=== PATIENT | female | born 1945 | race Caucasian/White ===

== ENCOUNTER → 2017-09-19 08:45 | Outpatient (CLI) | payer MEDICARE, SELFPAY ==
[2017-09-19 10:49] LABS: Basophils % 0.7 % (0.1-2.0); Eosinophils # 0.1 K/mm3 (0.0-0.4); Eosinophils % 1.6 % (0.1-12.0); Hematocrit 43.6 % (37.0-47.0); Hemoglobin 14.6 g/dL (12.2-16.2); Lymphocytes # 1.3 K/mm3 (0.7-4.5); Mean Corpuscular HGB Conc 33.4 g/dL (31.8-35.4); Mean Corpuscular Hemoglobin 29.8 pg (27.0-31.2); Mean Corpuscular Volume 89.2 fl (81-99); Mean Platelet Volume 8.4 fl (7.4-10.4); Monocytes # 0.4 K/mm3 (0.1-1.0); Neutrophils # 3.7 K/mm3 (1.8-7.8); Neutrophils % 66.6 % (37.0-80.0); Platelet Count 197 K/mm3 (142-424); Red Blood Count 4.89 M/mm3 (4.20-5.40); Red Cell Distribution Width 12.2 % (11.5-17.5); White Blood Count 5.6 K/mm3 (4.8-10.8)
[2017-09-19 10:56] LABS: Alanine Aminotransferase 34 U/L (12-78); Albumin/Globulin Ratio 1.3 (1.1-1.8); Alkaline Phosphatase 116 U/L (46-116); Anion Gap 10.4 mEq/L (5-15); Aspartate Amino Transferase 19 U/L (15-37); Bilirubin,Total 0.4 mg/dL (0.2-1.0); Blood Urea Nitrogen 22 mg/dL (7-18); Calcium 8.8 mg/dL (8.5-10.1); Carbon Dioxide 30 mmol/L (21.0-32.0); Chloride 105 mmol/L (98-107); Chol/HDL Ratio 3.8 (1-3.5); Cholesterol 206 mg/dL (140-200); Estimated Glomerular Filt Rate 71 ml/min (>60); Free T4 (Free Thyroxine) 0.87 ng/dl (0.76-1.46); GFR (African American) 86 ML/MIN (>60); Glucose 94 mg/dL (74-106); HDL Cholesterol 54 mg/dL (29-89); LDL Cholesterol 121 mg/dL (0-130); Potassium 4.4 mmoL/L (3.5-5.1); Sodium 141 mmol/L (136-145); Thyroid Stimulating Hormone 2.59 uIU/ml (0.358-3.740); Triglycerides 154 mg/dL (30-200); VLDL Cholesterol 31 mg/dL (0-40)
[2017-09-20 18:02] LABS: Folate >20.0 ng/mL (>3.0); Vitamin B12 729 pg/mL (232-1245)
== END ==
PROVIDERS: PCP Nurse Practitioner; Visit Provider Nurse Practitioner
DX: E03.9 Hypothyroidism, unspecified; I10 Essential (primary) hypertension; E78.5 Hyperlipidemia, unspecified
CPT/HCPCS: 36415; 80053; 80061; 82607; 82652; 82746; 84439; 84443; 85025

== ENCOUNTER → 2018-08-25 13:21 | Outpatient (POV) | payer MEDICARE, SELFPAY | PROVIDERS: Visit Provider Dermatology | DX: Z00.00 Encounter for general adult medical examination without abnormal findings (principal) ==

== ENCOUNTER → 2019-05-17 09:59 | Outpatient (CLI) | payer MEDICARE, SELFPAY ==
--- NOTE | 2019-05-17 10:17 | XR_ITS ---
PROCEDURE: XR HUMERUS RT CLINICAL INDICATION: RT ARM PAIN Pain COMPARISON: No exams were available for comparison FINDINGS: No fracture or dislocation. No lytic or blastic change. There is normal mineralization. There are mild osteoarthritic changes of the glenohumeral joint with mild subacromial stenosis. A lucency is present projecting over the medial aspect of the humeral head and could be either from the humerus or the glenoid possibly related to a subarticular cyst. Other findings:None. IMPRESSION: Osteoarthritic changes of the shoulder with subacromial stenosis with possible subarticular cyst of the humerus or glenoid Dictated by: Ever Thomas MD 05/17/2019 10:39 Electronically signed by Ever Thomas MD in [place] 05/17/2019 10:39
== END ==
PROVIDERS: PCP Nurse Practitioner Family; Visit Provider Nurse Practitioner Family
DX: M79.621 Pain in right upper arm (principal)
CPT/HCPCS: 73060

== ENCOUNTER → 2019-06-01 07:36 | Outpatient (CLI) | payer MEDICARE, SELFPAY ==
--- NOTE | 2019-06-01 07:43 | MR_ITS ---
PROCEDURE: MR SHOULDER RT WO CON CLINICAL INDICATION: BICEPS TENDINOSIS OF RIGHT SHOULDER, PRIMARY OSTEOARTHRITIS Right shoulder and proximal humerus pain with limited range of motion COMPARISON: XR HUMERUS RT from 05/17/2019 TECHNIQUE: Routine multiplanar multi echo sequences are performed without gadolinium enhancement. FINDINGS: There is mild acromioclavicular arthropathy. There is subacromial stenosis with down sloping of the lateral aspect of the a chromium with a subacromial space measuring 5 mm. There is mild thickening of the supraspinatus and infraspinatus and subscapularis tendons with slight increase in T2 signal consistent with tendinopathy/tendinosis. There is a small focal area of increased T2 signal involving the distal aspect of the infraspinatus tendon suggesting a tear which appears to be full-thickness but is small. The bicipital tendon is in place. There is fluid around the bicipital tendon sheath in the bicipital groove consistent with tenosynovitis. No evidence of bicipital tendon tear. Osteoarthritic changes are present at the glenohumeral joint. No obvious labral tear. A small amount fluid is present in the subcoracoid region. IMPRESSION: 1. 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 There appears to be a small full-thickness tear of the distal aspect of the infraspinatus tendon. The tear is not complete and there is no evidence of tendon retraction 3. Shoulder joint effusion with subcoracoid bursitis 4. Tenosynovitis of the bicipital tendon Dictated by: Ever Thomas MD 06/04/2019 06:25 Electronically signed by Ever Thomas MD in [place] 06/04/2019 06:25
== END ==
PROVIDERS: PCP Nurse Practitioner Family; Visit Provider Nurse Practitioner
DX: M67.813 Other specified disorders of tendon, right shoulder (principal); M19.011 Primary osteoarthritis, right shoulder
CPT/HCPCS: 73221

== ENCOUNTER → 2020-01-11 09:49 | Outpatient (CLI) | payer MEDICARE, SELFPAY ==
[2020-01-11 10:53] LABS: Alanine Aminotransferase 23 U/L (12-78); Albumin Level 4.4 g/dl (3.5-5.0); Albumin/Globulin Ratio 1.8 (1.1-1.8); Alkaline Phosphatase 118 U/L (38-126); Anion Gap 12.6 mEq/L (5-15); Aspartate Amino Transferase 34 U/L (14-36); Bilirubin,Total 0.3 mg/dl (0.2-1.3); Blood Urea Nitrogen 23 mg/dl (7-17); Calcium 9.7 mg/dl (8.4-10.2); Carbon Dioxide 31 mmol/L (22.0-30.0); Chloride 100 mmol/L (98-107); Chol/HDL Ratio 3.6 (1-3.5); Cholesterol 216 mg/dl (140-200); Estimated Glomerular Filt Rate 70 ml/min (>60); GFR (African American) 85 ML/MIN (>60); Globulin 2.5 g/dL (1.3-3.2); Glucose 99 mg/dl (74-100); HDL Cholesterol 60 mg/dl (40-60); Potassium 4.6 mmoL/L (3.5-5.1); Sodium 139 mmol/L (136-145); Total Protein,Serum 6.9 g/dl (6.3-8.2); Triglycerides 117 mg/dl (30-150); VLDL Cholesterol 23 mg/dL (0-40)
[2020-01-11 11:04] LABS: Direct LDL Cholesterol 139.01 mg/dL (100-129)
[2020-01-11 11:07] LABS: Free T4 (Free Thyroxine) 0.86 ng/dl (0.78-2.19)
[2020-01-11 11:21] LABS: Thyroid Stimulating Hormone 0.38 uIU/mL (0.465-4.68)
== END ==
PROVIDERS: Visit Provider Nurse Practitioner Family
DX: I10 Essential (primary) hypertension (principal); E78.2 Mixed hyperlipidemia; E03.9 Hypothyroidism, unspecified
CPT/HCPCS: 36415; 80053; 80061; 84439; 84443

== ENCOUNTER → 2020-05-03 09:28 | Outpatient (CLI) | payer MEDICARE, SELFPAY ==
[2020-05-03 10:46] LABS: Chol/HDL Ratio 3.5 (1-3.5); Cholesterol 194 mg/dl (140-200); HDL Cholesterol 55 mg/dl (40-60); Triglycerides 165 mg/dl (30-150); VLDL Cholesterol 33 mg/dL (0-40)
[2020-05-03 10:57] LABS: Direct LDL Cholesterol 112.37 mg/dL (100-129)
[2020-05-03 11:04] LABS: Free T4 (Free Thyroxine) 1.08 ng/dl (0.78-2.19)
[2020-05-03 11:17] LABS: Thyroid Stimulating Hormone 0.51 uIU/mL (0.465-4.68)
[2020-05-04 10:27] LABS: Triiodothyronine (T3) Free 2.6 pg/mL (2.0-4.4)
== END ==
PROVIDERS: PCP Nurse Practitioner Family; Visit Provider Nurse Practitioner Family
DX: E78.2 Mixed hyperlipidemia (principal); R79.89 Other specified abnormal findings of blood chemistry
CPT/HCPCS: 36415; 80061; 84439; 84443; 84481

== ENCOUNTER 2020-06-20 18:03 | Emergency (ER) | payer MEDICARE, SELFPAY ==
[2020-06-20 18:04] VITALS: BP 183/129; PULSE 73; RESP 19; TEMP 36.6; O2SAT 97; BMI 25.6
--- NOTE | 2020-06-20 18:17 | CT_ITS ---
PROCEDURE: CT HEAD/BRAIN WO CON CLINICAL INDICATION: headache, htn Severe headache COMPARISON: No exams were available for comparison TECHNIQUE: Axial images obtained. All CT scans at the facility use one or more dose reduction, viz: automated exposure control, ma/kV adjustment per patient size (including targeted exams where dose is matched to indication, i.e. head), or iterative reconstruction technique. FINDINGS: No midline shift, mass effect, intracranial hemorrhage, hydrocephalus, or extra-axial fluid collection is evident. The calvarium has an unremarkable appearance. No mastoid effusion. No sinus air-fluid level. IMPRESSION: No acute intracranial finding Dictated by: Ever Thomas MD 06/21/2020 06:37 Ever Thomas MD in [place] 06/21/2020 06:37
--- NOTE | 2020-06-20 18:18 | ECG_ITS ---
APPROVED REPORT Exam: Resting ECG HR:65 bpm ECG Measurements Heart Rate 65 AXES OK 138 P 63 QRSd 82 QRS 45 QT 432 T 57 QTc 449 Conclusion Normal sinus rhythm Normal ECG Electronically signed by : Alber Mcintosh, 06/26/2020 07:42:39
[2020-06-20 18:34] VITALS: BP 195/81; PULSE 64; O2SAT 97
--- NOTE | 2020-06-20 18:36 | HMH.EDGENADL ---
ED Disposition Clinical Impression: Hypertensive urgency Disposition: Home, Self-Care Condition on Discharge: Fair Instructions: High Blood Pressure (Hypertension) (Alternative Therapy), DI for High Blood Pressure Additional Instructions: You have been evaluated for headache and high blood pressure. Please take all medications as prescribed. Take Tylenol if you have a headache. Follow-up with your primary care doctor as soon as available. Return to the emergency department if you have any new or worsening symptoms, headache, vision changes, numbness, weakness, tingling in your arms or legs. You were given hydralazine in the emergency department. Referrals: Alber Phillips MD [Primary Care Provider] - Lopez Baltazar MD [Staff Physician] - Time of Disposition: 19:41 - Critical Care Critical Care Time: No Attestation: On 06/20/20, the high probability of a clinically significant, sudden or life threatening deterioration of the following system(s) required my full and direct attention, intervention and personal management. The time I documented below is in addition to time spent performing reported procedures but includes the following listed in this critical care notation. Medical Decision Making - Medical Records Medical records reviewed: Yes: I reviewed the patient's medical records. - Jose Inquiry Pt receiving controlled substance: No Vital Signs: 06/20/20 18:04 06/20/20 18:34 Temperature 97.8 F Temperature Source Oral Pulse Rate [Left Radial] 73 64 Respiratory Rate 19 Blood Pressure [Right Arm] 183/129 H 195/81 H Blood Pressure Mean [Right Arm] 147 119 Blood Pressure Source [Right Arm] Automatic Cuff Automatic Cuff Blood Pressure Position [Right Arm] Sitting Sitting 02 Sat by Pulse Oximetry 97 97 Oxygen Delivery Method Room Air - Lab Data Lab Results 06/20/20 19:00: WBC 6.2, RBC 4.83, Hgb 15.3, Hct 44.9, MCV 92.9, MCH 31.7 H, MCHC 34.1, RDW 13.9, Plt Count 211, MPV 10.4, Neut % (Auto) 63.0, Lymph % (Auto) 25.8, [place] % (Auto) 7.4, Eos % (Auto) 2.8, Baso % (Auto) 1.0, Neut # (Auto) 3.9, Lymph # (Auto) 1.6, [place] # (Auto) 0.5, Eos # (Auto) 0.2, Baso # (Auto) 0.1 06/20/20 19:00: Sodium 140, Potassium 4.2, Chloride 101, Carbon Dioxide 32 H, Anion Gap 11.2, BUN 16, Creatinine 0.90, Estimated Creat Clear 50, Estimated GFR 61, Est GFR ( Amer) 74, Glucose 100, Calcium 9.7 Result diagrams: 06/20/20 19:00 06/20/20 19:00 Orders (Tests/Meds): ED MEDICATIONS Generic Name Dose Route Start Last Admin Trade Name Freq PRN Reason Stop Dose Admin Hydralazine HCl 10 mg 06/20/20 21:00 06/20/20 19:11 Hydralazine 10mg Tablet PO 07/20/20 20:59 10 mg TID NOLA Administration ORDERS Category Date Time Status CT head/brain wo con Stat Cat Scan 06/20/20 18:17 Taken BMP [Basic Metabolic Panel] Stat Lab 06/20/20 19:00 Results Trop I [Troponin I] Stat Lab 06/20/20 19:00 Results Troponin I Q3H Lab 06/20/20 21:30 Ordered Troponin I Q3H Lab 06/21/20 00:30 Ordered UA [Urinalysis and Microscopic] Stat Lab 06/20/20 18:17 Ordered EKG Request [ECG Request by /Carl] Stat Y 06/20/20 18:18 Ordered - CT Data CT Scan: Head Time Received: 18:[address] Reviewed: Yes: I have reviewed the patient's CT results, I have viewed the radiologist's interpretation Preliminary Findings: Normal/NAD Findings Narrative: No acute intracranial abnormality Medical Decision Narrative: In summary this is a 74-year-old female with history of essential hypertension presenting to the emergency department with elevated blood pressure and headache. Patient clinically stable on arrival. Vital signs within normal limits. Obtain CBC, CMP, troponin, urinalysis, EKG to assess for endorgan dysfunction. Headache is not worst of her life or sudden in onset. Will obtain noncontrast head CT to assess for intracranial bleed. Symptoms started just prior to arrival, within the last [address] unremarkabl
--- NOTE | 2020-06-20 18:43 | PC.NURSE ---
Gone to radiology
[2020-06-20 19:04] VITALS: BP 202/85; PULSE 63; RESP 17; O2SAT 95
[2020-06-20 19:11] LABS: Basophils # 0.1 K/mm3 (0-0.2); Eosinophils # 0.2 K/mm3 (0.0-0.4); Eosinophils % 2.8 % (0.1-12.0); Hematocrit 44.9 % (37.0-47.0); Hemoglobin 15.3 g/dL (12.2-16.2); Lymphocytes # 1.6 K/mm3 (0.7-4.5); Lymphocytes % 25.8 % (10-50); Mean Corpuscular HGB Conc 34.1 g/dL (31.8-35.4); Mean Corpuscular Hemoglobin 31.7 pg (27.0-31.2); Mean Corpuscular Volume 92.9 fl (81-99); Mean Platelet Volume 10.4 fl (7.4-10.4); Monocytes # 0.5 K/mm3 (0.1-1.0); Monocytes % 7.4 % (1.7-9.3); Neutrophils # 3.9 K/mm3 (1.8-7.8); Platelet Count 211 K/mm3 (142-424); Red Blood Count 4.83 M/mm3 (4.20-5.40); Red Cell Distribution Width 13.9 % (11.5-17.5); White Blood Count 6.2 K/mm3 (4.8-10.8)
[2020-06-20 19:24] LABS: Anion Gap 11.2 mEq/L (5-15); Blood Urea Nitrogen 16 mg/dl (7-17); Calcium 9.7 mg/dl (8.4-10.2); Carbon Dioxide 32 mmol/L (22.0-30.0); Chloride 101 mmol/L (98-107); Creatinine Clearance Estimated 50 mL/min (50-200); Estimated Glomerular Filt Rate 61 ml/min (>60); GFR (African American) 74 ML/MIN (>60); Glucose 100 mg/dl (74-100); Potassium 4.2 mmoL/L (3.5-5.1); Sodium 140 mmol/L (136-145)
[2020-06-20 19:30] VITALS: BP 209/83; PULSE 56; RESP 17; O2SAT 95
[2020-06-20 19:38] LABS: Troponin I < 0.01 ng/ml (0.00-0.034)
--- NOTE | 2020-06-20 19:49 | PC.NURSE ---
notified of pt HTN. no new orders at this time for medication. stated she spoke with pt about her HTN and that she was more concerned with her systolic number and would be send pt home with a script for PO hydralazine to take for the next 3 days and that pt should follow up with Dr. Baltazar.
[2020-06-20 19:50] VITALS: BP 209/82; PULSE 97; RESP 16; TEMP 36.7; O2SAT 98
[2020-06-20 20:00] VITALS: BP 238/82; PULSE 60; RESP 17; O2SAT 97
--- NOTE | 2020-06-20 20:14 | PC.NURSE ---
Dr. Dasilva was made aware of BP. she was still comfortable to send patient home.
== END 2020-06-20 20:41 | disposition home or self-care (01) ==
PROVIDERS: Emergency Provider Emergency Medicine; PCP Family Medicine
DX: I16.0 Hypertensive urgency (principal); Z79.899 Other long term (current) drug therapy
CPT/HCPCS: 70450; 80048; 84484; 85025; 93005; 99283

== ENCOUNTER → 2020-07-10 10:07 | Outpatient (CLI) | payer MEDICARE, SELFPAY ==
[2020-07-10 12:12] LABS: Chloride 99 mmol/L (98-107); Sodium 140 mmol/L (136-145)
[2020-07-10 12:13] LABS: Potassium 4.6 mmoL/L (3.5-5.1)
[2020-07-10 12:15] LABS: Blood Urea Nitrogen 17 mg/dl (7-17); Estimated Glomerular Filt Rate 70 ml/min (>60); GFR (African American) 85 ML/MIN (>60)
[2020-07-10 12:16] LABS: Anion Gap 14.6 mEq/L (5-15); Carbon Dioxide 31 mmol/L (22.0-30.0); Glucose 100 mg/dl (74-100)
== END ==
PROVIDERS: Visit Provider Internal Medicine Cardiovascular Disease
DX: I10 Essential (primary) hypertension (principal)
CPT/HCPCS: 36415; 80048

== ENCOUNTER → 2020-07-26 12:37 | Outpatient (CLI) | payer MEDICARE, SELFPAY ==
--- NOTE | 2020-07-26 12:43 | CA_ITS ---
APPROVED REPORT EXAM: Comprehensive 2D, Doppler, and color-flow Echocardiogram Abalone Fisherman: Rachelle Pittman RVT Ht: 5 ft 1 in Wt: 142lbs BSA: 1.63 BP: 195/81 mmHg Indications: HTN 2D Dimensions LVOT 1.45 cm (M/F) 1.5-2.5 M-Mode Dimensions RVDd 1.54 cm (0.9-2.6) LA Diam 3.22 cm (1.9-4.0) LVDd 4.95 cm (3.5-5.7) Ao Diam 2.43 cm (2.0-3.7) LVDs 3.27 cm (3.5-5.7) IVSd 0.57 cm (0.6-1.1) PWd 0.57 cm (0.6-1.1) EF (Teich) 61.00% FS 32.70% EDV (Teich) 110.70 mL ESV (Teich) 43.20 mL LV Diastology E Decel Time 217.00 (160-240 msec) E/A Ratio 1.0 MED E' 9.70 (< 7 cm/sec) E'/MED E' Ratio 9.34 (>14) LAT E' 6.80 (<10 cm/sec) E/LAT E' Ratio 13.32 (>14) Aortic Valve AI PHT 1564.00 ms Mitral Valve MV E Max Mukesh. 91.00 (40-130 cm/s) MV A Velocity 87.00 (40-130 cm/s) E/A Ratio 1.04 MV Decel. Time 217.00 (160-240 ms) MV PHT 63.00 ms Pulmonary Valve PV Peak Velocity 77.00 (50-150 cm/s) Tricuspid Valve TR P. Velocity 188.00 cm/s RAP Estimate 10.00 mmHg RVSP 24.10 mmHg Left Ventricle Left atrium is mildly enlarged, left ventricle is normal size, mild concentric left ventricular hypertrophy, visually estimated ejection fraction 55% with no regional wall motion abnormality, grade 1 diastolic dysfunction seen without tissue Doppler evidence of raise left atrial pressure. Right Ventricle Right atrium and right ventricle are normal size and contractility. Aortic Valve Aortic valve is thickened and calcified leaflet chordae display good mobility, there is no aortic stenosis, there is mild aortic insufficiency. Mitral Valve Mitral valve is grossly normal, there is mild mitral regurgitation. Tricuspid Valve Tricuspid valve is grossly normal, there is mild tricuspid regurgitation, tricuspid regurgitation jet velocity is inadequate for calculation of the right ventricular systolic pressure. Pulmonic Valve Pulmonic valve is poorly visualized. Great Vessels Aortic root is normal size. Pericardium No significant pericardial effusion noted. Conclusion 1. Mildly enlarged left atrium, normal left ventricular size, mild concentric left ventricular hypertrophy, visually estimated ejection fraction 55% with no regional wall motion abnormality, grade 1 diastolic dysfunction seen without tissue Doppler evidence of raise left atrial pressure. 2. Mild aortic, mild mitral and tricuspid regurgitation. 3. No significant pericardial effusion noted. Electronically signed by : Emile Gil, 07/26/2020 18:13:20
== END ==
PROVIDERS: PCP Family Medicine; Visit Provider Internal Medicine Cardiovascular Disease
DX: R07.89 Other chest pain (principal)
CPT/HCPCS: 93306

== ENCOUNTER → 2020-09-04 14:41 | Outpatient (CLI) | payer MEDICARE, SELFPAY | PROVIDERS: PCP Nurse Practitioner Family; Visit Provider Internal Medicine Cardiovascular Disease | DX: G47.00 Insomnia, unspecified (principal); G47.33 Obstructive sleep apnea (adult) (pediatric) | CPT/HCPCS: G0399 ==

== ENCOUNTER → 2020-10-16 09:54 | Outpatient (CLI) | payer MEDICARE, SELFPAY ==
[2020-10-16 11:16] LABS: Alanine Aminotransferase 21 U/L (12-78); Albumin Level 4.6 g/dl (3.5-5.0); Alkaline Phosphatase 89 U/L (38-126); Aspartate Amino Transferase 29 U/L (14-36); Bilirubin,Direct 0.1 mg/dl (0.0-0.4); Bilirubin,Indirect 0.6 mg/dL (0.0-0.9); Bilirubin,Total 0.7 mg/dl (0.2-1.3); Bilirubin,Unconjugated 0.6 mg/dL (0.0-1.1); Chol/HDL Ratio 4.2 (1-3.5); Cholesterol 197 mg/dl (140-200); HDL Cholesterol 47 mg/dl (40-60); Triglycerides 255 mg/dl (30-150); VLDL Cholesterol 51 mg/dL (0-40)
[2020-10-16 11:26] LABS: Direct LDL Cholesterol 105.51 mg/dL (100-129)
== END ==
PROVIDERS: Visit Provider Internal Medicine Cardiovascular Disease
DX: I10 Essential (primary) hypertension (principal); E78.2 Mixed hyperlipidemia
CPT/HCPCS: 36415; 80061; 80076

== ENCOUNTER 2021-02-17 11:21 | Emergency (ER) | payer MEDICARE, SELFPAY ==
--- NOTE | 2021-02-17 12:22 | HMH.EDUTC ---
[facility] Dis[place] Clinical Impression: Close exposure to COVID-19 virus Disposition: Home, Self-Care Condition on Discharge: Good Additional Instructions: covid swab was sent to lab, call later today for results. self isolate until test results are known to be negative No sign of a bacterial infection. Likely viral. Viruses can take 7-14 days to run their course. Nasal saline and bulb syringe or nose Emma to remove nasal drainage to help with nasal congestion. Hard to eat, drink, sleep with nasal congestion so important to keep this cleaned out. Monitor temp. Tylenol or Motrin as needed for pain or fever Encourage fluids, water, Gatorade, Powerade, Pedialyte if infant/toddler/child Warm salt water gargles Warm fluids Sore throat lozenges Sleep elevated Humidifier/vaporizer Follow-up immediately for new or worsening symptoms or no noticeable improvement over the next 48-72 hours. Referrals: Jerri Colvin APRN [Primary Care Provider] - Time of Disposition: 12:25 Medical Decision Making - Jose Inquiry Pt receiving controlled substance: No Orders (Tests/Meds): ORDERS Category Date Time Status Covid-19 Nasal PCR ([place]) Routine Lab 02/17/21 12:08 Received [facility] HPI - General Chief complaint: Urgent [facility] Stated complaint: covid test Time Seen by Provider: 02/17/21 12:22 Mode of Arrival: Ambulatory Source of Information: Patient Limitations: No Limitations - History of Present Illness Provider Complaint: 75 yr old female presents for cough,runny nose, nausea and diarreha. has been exposed to covid - Related Data Home Medications Medication Instructions Recorded Confirmed Levothyroxine Sodium 25 mcg PO DAILY 06/20/20 06/20/20 [Levothyroxine 25mcg (0.025mg) Tab] Nebivolol HCl [Bystolic] 10 mg PO DAILY 06/20/20 06/20/20 Prazosin HCl [Minipress] 1 mg PO DAILY 06/20/20 06/20/20 Rosuvastatin Calcium 5 mg PO DAILY 06/20/20 06/20/20 Venlafaxine HCl 75 mg PO DAILY 06/20/20 06/20/20 lisinopriL [Lisinopril 20mg Tab] 20 mg PO DAILY 06/20/20 06/20/20 Previous Rx's Medication Instructions Recorded Hydralazine HCl [Apresoline 10mg 10 mg PO BID 5 Days #10 tab 06/20/20 tablet] Allergies Allergy/AdvReac Type Severity Reaction Status Date / Time No Known Allergies Allergy Verified 06/20/20 18:37 [place] History - Hepatitis A Screen Attestation statement:: This patient has been screened for Hepatitis A risk factors. I have reviewed the patient's past medical history: Yes ROS Obtained: Yes Systems reviewed as appropriate & no additional complaints - Constitutional Constitutional: Reports system reviewed and no additional complaints, except as docu, Denies chills, Reports fatigue - Eyes Eyes: Reports system reviewed and no additional complaints, except as docu, Denies loss of vision - ENT Ears, Nose, Mouth, and Throat: Reports system reviewed and no additional complaints, except as docu, Reports nasal congestion, Reports nasal discharge, Reports sinus pressure, Reports sore throat - Cardiovascular Cardiovascular: Reports system reviewed and no additional complaints, except as docu, Denies chest pain - Respiratory Respiratory: Reports system reviewed and no additional complaints, except as docu, Denies change in phlegm color, Reports cough - Gastrointestinal Gastrointestingal: Reports: system reviewed and no additional complaints, except as docu, diarrhea, nausea - Genitourinary Female Genitourinary: Reports system reviewed and no additional complaints, except as docu - Musculoskeletal Musculoskeletal: Reports system reviewed and no additional complaints, except as docu, Denies joint pain - Integumentary/Breasts Skin/Breast: Reports system reviewed and no additional complaints, except as docu, Denies rash - Neurologic Neurologic: Reports system reviewed and no additional complaints, except as docu, Denies dizziness - Endocrine Endocrine: Reports system reviewed a
[2021-02-17 12:24] VITALS: BP 147/77; PULSE 88; RESP 19; TEMP 37.1; O2SAT 98; BMI 25.1
[2021-02-17 12:34] VITALS: BP 147/77; PULSE 88; RESP 19; TEMP 37.1
--- NOTE | 2021-02-17 16:28 | PC.NURSE ---
Patient contacted with positive covid results. Advised patient to self quarantine for 2 weeks.
== END 2021-02-17 12:35 | disposition home or self-care (01) ==
PROVIDERS: Emergency Provider Nurse Practitioner Family; PCP Nurse Practitioner Family
DX: U07.1 COVID-19 (principal); I10 Essential (primary) hypertension
CPT/HCPCS: G0463; 99202; U0003

== ENCOUNTER → 2021-09-08 11:48 | Outpatient (CLI) | payer MEDICARE, SELFPAY | PROVIDERS: PCP Nurse Practitioner Family | DX: Z98.890 Other specified postprocedural states (principal); Z11.52 Encounter for screening for COVID-19 | CPT/HCPCS: C9803; U0003; U0005 ==

== ENCOUNTER → 2022-07-08 11:02 | Outpatient (CLI) | payer MEDICARE, SELFPAY ==
[2022-07-08 11:35] LABS: MANUAL DIFFERENTIAL MANUAL DIFFERENTIAL (MANUAL DIFF)
[2022-07-08 11:49] LABS: Basophils % 0.7 % (0.1-2.0); Eosinophils # 0.2 K/mm3 (0.0-0.4); Hemoglobin 14.4 g/dL (12.2-16.2); Lymphocytes # 1.3 K/mm3 (0.7-4.5); Lymphocytes % 22.4 % (10-50); Mean Corpuscular HGB Conc 32.7 g/dL (31.8-35.4); Mean Corpuscular Hemoglobin 29.3 pg (27.0-31.2); Mean Corpuscular Volume 89.6 fl (81-99); Mean Platelet Volume 8.7 fl (7.4-10.4); Monocytes # 0.4 K/mm3 (0.1-1.0); Monocytes % 7.1 % (1.7-9.3); Neutrophils # 3.8 K/mm3 (1.8-7.8); Neutrophils % 66.8 % (37.0-80.0); Platelet Count 244 K/mm3 (142-424); Red Blood Count 4.91 M/mm3 (4.20-5.40); Red Cell Distribution Width 12.8 % (11.5-17.5); White Blood Count 5.7 K/mm3 (4.8-10.8)
[2022-07-08 12:35] LABS: Free Thyroxine Index 3.1 ug/dL (5.93-13.13); T4 (Thyroxine) 10.7 ug/dl (5.53-11.0); Triiodothryronine (T3) Uptake 29 % (23.5-40.5)
[2022-07-08 12:40] LABS: Eosinophils % 1 % (0-3); Lymphocytes % 25 % (10-50); Monocytes % 5 % (2-9); Neutrophils % 69 % (42-76); Total Cells Counted 100
[2022-07-08 12:43] LABS: Platelet Estimate Normal; RBC Morphology Normal
[2022-07-08 12:48] LABS: Thyroid Stimulating Hormone 1.27 uIU/mL (0.465-4.68)
[2022-07-08 12:54] LABS: Chloride 102 mmol/L (98-107); Potassium 4.5 mmoL/L (3.5-5.1); Sodium 140 mmol/L (136-145)
[2022-07-08 12:57] LABS: Alanine Aminotransferase 21 U/L (12-78); Albumin Level 4.4 g/dl (3.5-5.0); Albumin/Globulin Ratio 1.8 (1.1-1.8); Alkaline Phosphatase 132 U/L (38-126); Anion Gap 15.5 mEq/L (5-15); Aspartate Amino Transferase 27 U/L (14-36); Bilirubin,Total 0.4 mg/dl (0.2-1.3); Blood Urea Nitrogen 17 mg/dl (7-17); Calcium 9.8 mg/dl (8.4-10.2); Carbon Dioxide 27 mmol/L (22.0-30.0); Chol/HDL Ratio 4.6 (1-3.5); Cholesterol 201 mg/dl (140-200); Estimated Glomerular Filt Rate 70 ml/min (>60); GFR (African American) 85 ML/MIN (>60); Globulin 2.4 g/dL (1.3-3.2); Glucose 83 mg/dl (74-100); HDL Cholesterol 44 mg/dl (40-60); Total Protein,Serum 6.8 g/dl (6.3-8.2); Triglycerides 124 mg/dl (30-150); VLDL Cholesterol 25 mg/dL (0-40)
[2022-07-08 13:08] LABS: Direct LDL Cholesterol 113.11 mg/dL (100-129)
== END ==
PROVIDERS: PCP Nurse Practitioner Family; Visit Provider Nurse Practitioner Family
DX: E03.9 Hypothyroidism, unspecified (principal); E78.2 Mixed hyperlipidemia; I10 Essential (primary) hypertension
CPT/HCPCS: 36415; 80053; 80061; 84436; 84443; 84479; 85007; 85014; 85018; 85048; 85049

== ENCOUNTER 2023-02-08 17:56 | Emergency (ER) | payer OTHER, SELFPAY ==
[2023-02-08 17:56] VITALS: BP 169/73; PULSE 87; RESP 18; TEMP 36.7; O2SAT 95; BMI 25.6
[2023-02-08 18:26] LABS: Microscopic, Urine URINE MICROSCOPIC (MICROSCOPIC)
[2023-02-08 18:27] LABS: Appearance,Urine TURBID (Clear); Blood, Urine 3+ (Negative); Color,Urine AMBER (Yellow); Glucose,Urine (UA) Negative (Negative); Ketones,Urine Negative (Negative); Leukocyte Esterase,Urine TRACE (Negative); Nitrate,Urine POSITIVE (Negative); PH,Urine 6.5 (5.0-8.5); Protein,Urine 3+ (Negative); Specific Gravity, Urine >= 1.030 (1.005-1.030)
--- NOTE | 2023-02-08 18:28 | EXP.UTC ---
Discharge Plan Disposition Patient Disposition: Home, Self-Care Condition: Good Prescriptions Prescriptions: New phenazopyridine [Pyridium] 200 mg tablet 200 mg PO Q8H 2 Days Qty: 6 0RF ciprofloxacin HCl [Cipro] 500 mg tablet 500 mg PO BID 7 Days Qty: 14 0RF No Action venlafaxine 75 MG tablet 75 mg PO DAILY prazosin 1 MG capsule 1 mg PO DAILY lisinopril 20 MG tablet 20 mg PO DAILY levothyroxine 25 MCG tablet 25 mcg PO DAILY rosuvastatin 5 MG tablet 5 mg PO DAILY nebivolol 10 MG tablet 10 mg PO DAILY hydralazine 10 MG tablet 10 mg PO BID 5 Days Qty: 10 0RF Referrals Follow up/Referrals: Jerri Colvni APRN [Primary Care Provider] - See instructions Activity Restrictions/Add. Instructions Additional Instructions/Restrictions: Drink plenty of fluids. Take tylenol or ibuprofen for pain or fever. Take the medications as directed. Follow up with your regular doctor. GO TO THE ER FOR ANY WORSENING SYMPTOMS The pyridium will make your urine turn orange, this is an expected side effect. It will stain your clothes if it comes into contact with them. We will culture the urine. That will tell what bacteria is causing your infection and which antibiotics will treat it best. Sometimes the first antibiotic we prescribe turns out to not work against different bacteria. So, make sure you follow up within 3 days if you are not getting better. Clinical Impressions Clinical Impression: UTI (urinary tract infection) Instructions Patient Instructions: Urine Culture, Phenazopyridine, Ceftriaxone Injection, Ciprofloxacin Discharge ED Provider: Robert Aviles [facility] General Stated complaint: poss uti Mode of Arrival: Ambulatory Source of Information: Patient Limitations: No Limitations Time Seen by Provider: 02/08/23 18:28 Description of Symptoms (Recalled from Triage Doc. by RN): Patient reports possible UTI. States she has pain with urination, blood in urine and frequency. HEENT Symptoms (Recalled from RN notes): No Resp Symptoms (Recalled from RN notes): No Skin Symptoms (Recalled from RN notes): No MS Symptoms (Recalled from RN notes): No Functional Status (Recalled from RN notes): wnl History of Present Illness Provider Complaint: She states that for the past 2 days she has had worsening dysuria, frequency, and urgency. Related Data Home Medications Medication Instructions Recorded Confirmed levothyroxine 25 mcg tablet 25 mcg PO DAILY thyroid 06/20/20 06/20/20 lisinopril 20 mg tablet 20 mg PO DAILY Hypertension 06/20/20 06/20/20 nebivolol 10 mg tablet 10 mg PO DAILY Hypertension 06/20/20 06/20/20 prazosin 1 mg capsule 1 mg PO DAILY Hypertension 06/20/20 06/20/20 rosuvastatin 5 mg tablet 5 mg PO DAILY Cholesterol 06/20/20 06/20/20 venlafaxine 75 mg tablet 75 mg PO DAILY mood 06/20/20 06/20/20 Previous Rx's Medication Instructions Recorded hydralazine 10 mg tablet 10 mg PO BID 5 days #10 tabs 06/20/20 ciprofloxacin HCl 500 mg tablet 500 mg PO BID 7 days #14 tabs 02/08/23 (Cipro) phenazopyridine 200 mg tablet 200 mg PO Q8H 2 days #6 tabs 02/08/23 (Pyridium) Allergies Allergy/AdvReac Type Severity Reaction Status Date / Time No Known Allergies Allergy Verified 06/20/20 18:37 Worker's Comp Is this a Worker's Comp case?: No [facility] Disclaimer: The information contained in this section may have been updated after the patient was seen, as this information can be updated by other users. Social History Smoking Status: Never smoker alcohol intake: never current occupational status: retired Travel in the last 8 weeks: None ROS Obtained: Yes All systems reviewed & no additional complaints except as documented Constitutional Constitutional: Reports system reviewed and no additional complaints, except as documented, Denies chills and Denies fever(s) Eyes Eyes:
[2023-02-08 18:46] LABS: Bilirubin,Urine 1+ (Negative)
[2023-02-08 18:48] VITALS: BP 169/73; PULSE 87; RESP 18; TEMP 36.7; O2SAT 95
[2023-02-08 18:48] LABS: Bacteria,Urine Trace /lpf; RBC,Urine TNTC #/hpf (0-3)
== END 2023-02-08 18:51 | disposition home or self-care (01) ==
PROVIDERS: Emergency Provider Nurse Practitioner Family; PCP Nurse Practitioner Family
DX: N39.0 Urinary tract infection, site not specified (principal)
CPT/HCPCS: 81001; 96372; 99212; 99214; G0463; J0696

== ENCOUNTER 2023-04-28 10:38 | Emergency (ER) | payer OTHER, SELFPAY ==
[2023-04-28] VITALS (8 sets, daily range): BP systolic 116–197; BP diastolic 64–96; PULSE 59–83; RESP 14–18; TEMP 36.7–36.9; O2SAT 95–98; BMI 25.6
--- NOTE | 2023-04-28 10:50 | PC.NURSE ---
DR HARRIS AT BEDSIDE
--- NOTE | 2023-04-28 10:51 | ECG_ITS ---
APPROVED REPORT Exam: Resting ECG HR:75 bpm ECG Measurements Heart Rate 75 AXES HI 142 P 61 QRSd 90 QRS 19 QT 397 T 56 QTc 426 Conclusion SINUS RHYTHM NORMAL ECG UNCONFIRMED REPORT Electronically signed by : Alber Mcintosh MD 04/28/2023 17:05:24
--- NOTE | 2023-04-28 11:01 | XR_ITS ---
FINAL REPORT CLINICAL HISTORY: papitations FINDINGS: A single portable view of the chest was obtained. The heart size and pulmonary vascularity are within normal limits. The mediastinum is within normal limits. No acute pulmonary abnormality is identified. There are postoperative changes in the right thorax. IMPRESSION: No active cardiopulmonary disease. Reviewed, Interpreted and Dictated by Ren Eid III, MD Transcribed by Fallon Nice Authenticated and [facility]
--- NOTE | 2023-04-28 11:09 | HMH.EDGENADL ---
Discharge Plan Disposition Patient Disposition: Home, Self-Care Chief Complaint: Headache Prescriptions Prescriptions: No Action phenazopyridine [Pyridium] 200 mg tablet 200 mg PO Q8H 2 Days Qty: 6 0RF ciprofloxacin HCl [Cipro] 500 mg tablet 500 mg PO BID 7 Days Qty: 14 0RF venlafaxine 75 MG tablet 75 mg PO DAILY prazosin 1 MG capsule 1 mg PO DAILY lisinopril 20 MG tablet 20 mg PO DAILY levothyroxine 25 MCG tablet 25 mcg PO DAILY rosuvastatin 5 MG tablet 5 mg PO DAILY nebivolol 10 MG tablet 10 mg PO DAILY hydralazine 10 MG tablet 10 mg PO BID 5 Days Qty: 10 0RF Referrals Follow up/Referrals: Daysi Bolden APRN [Primary Care Provider] - See instructions Activity Restrictions/Add. Instructions Additional Instructions/Restrictions: Call your family doctor to establish care for this visit to the emergency department and schedule follow-up within 48 hours to ensure improvement. If you have any worsening of your condition or any other concerning signs or symptoms, return to the emergency department or your primary care doctor for further evaluation. Continue taking amlodipine and lisinopril as discussed. If blood pressures continue to be elevated after 1 to 2 weeks of these medications and you recording breakfast, lunch, dinner blood pressures, talk to your doctor about discontinuing amlodipine and starting carvedilol (Coreg) 12.5 mg daily versus 6.25 mg twice daily. Clinical Impressions Clinical Impression: Headache Qualifiers: Headache type: other headache syndrome Qualified Code(s): G44.89 - Other headache syndrome Discharge ED Provider: Francis Cross General Adult HPI General Chief complaint: Headache Stated complaint: High BP Time Seen by Provider: 04/28/23 10:40 Mode of Arrival: Ambulatory Source of Information: Patient Limitations: No Limitations Description of Symptoms (Recalled from ER Triage Doc. by RN): PT REPORTS WAKING WITH ELEVATED BLOOD PRESSURE OVER 200 PT C/O HEADACHE, DIZZINESS AND INCREASED HR. PCP HAS INCREASED LISINOPRIL DOSAGE AND ADDED AMLODIPINE. HAS NOT FILLED NEW RX History of Present Illness HPI narrative: 77-year-old female with history of hypertension presenting with headache and palpitations. Patient states that she has been working with her PCP in order to try to control blood pressure. Currently taking lisinopril 20 and amlodipine 20. Took blood pressure today, over 200 systolic when patient was having headache, feeling flushed, feeling as if my heart was thumping. Has associated left-sided arm heaviness. Denies overt chest pain, nausea or vomiting, diaphoresis, neurologic deficits. Headache is frontal, posterior, not associated with neck stiffness, fevers or chills, or any other concerns. Related Data Home Medications Medication Instructions Recorded Confirmed levothyroxine 25 mcg tablet 25 mcg PO DAILY thyroid 06/20/20 06/20/20 lisinopril 20 mg tablet 20 mg PO DAILY Hypertension 06/20/20 06/20/20 nebivolol 10 mg tablet 10 mg PO DAILY Hypertension 06/20/20 06/20/20 prazosin 1 mg capsule 1 mg PO DAILY Hypertension 06/20/20 06/20/20 rosuvastatin 5 mg tablet 5 mg PO DAILY Cholesterol 06/20/20 06/20/20 venlafaxine 75 mg tablet 75 mg PO DAILY mood 06/20/20 06/20/20 Previous Rx's Medication Instructions Recorded hydralazine 10 mg tablet 10 mg PO BID 5 days #10 tabs 06/20/20 ciprofloxacin HCl 500 mg tablet 500 mg PO BID 7 days #14 tabs 02/08/23 (Cipro) phenazopyridine 200 mg tablet 200 mg PO Q8H 2 days #6 tabs 02/08/23 (Pyridium) Allergies Allergy/AdvReac Type Severity Reaction Status Date / Time No Known Allergies Allergy Verified 06/20/20 18:37 [facility] Disclaimer: The information contained in this section may have been updated after the patient was seen, as this information can be updated by other users. Social History (Updated 02/08/23 @ 18:50 by Robert Aviles APRN) Smoking Status: Never smoker
[2023-04-28 11:15] LABS: Basophils % 0.6 % (0.1-2.0); Eosinophils # 0.1 K/mm3 (0.0-0.4); Eosinophils % 1.6 % (0.1-12.0); Hematocrit 46.9 % (37.0-47.0); Hemoglobin 14.9 g/dL (12.2-16.2); Lymphocytes # 1.4 K/mm3 (0.7-4.5); Lymphocytes % 21.8 % (10-50); Mean Corpuscular HGB Conc 31.9 g/dL (31.8-35.4); Mean Corpuscular Hemoglobin 28.6 pg (27.0-31.2); Mean Corpuscular Volume 89.8 fl (81-99); Mean Platelet Volume 8.6 fl (7.4-10.4); Monocytes # 0.5 K/mm3 (0.1-1.0); Monocytes % 6.9 % (1.7-9.3); Neutrophils # 4.5 K/mm3 (1.8-7.8); Neutrophils % 69.1 % (37.0-80.0); Platelet Count 230 K/mm3 (142-424); Red Blood Count 5.22 M/mm3 (4.20-5.40); Red Cell Distribution Width 13.3 % (11.5-17.5); White Blood Count 6.5 K/mm3 (4.8-10.8)
[2023-04-28 11:18] LABS: Alanine Aminotransferase 30 U/L (12-78); Albumin Level 4.6 g/dl (3.5-5.0); Albumin/Globulin Ratio 1.5 (1.1-1.8); Alkaline Phosphatase 127 U/L (38-126); Anion Gap 12.3 mEq/L (5-15); Aspartate Amino Transferase 37 U/L (14-36); Bilirubin,Total 0.3 mg/dl (0.2-1.3); Blood Urea Nitrogen 18 mg/dl (7-17); Calcium 9.2 mg/dl (8.4-10.2); Carbon Dioxide 29 mmol/L (22.0-30.0); Chloride 104 mmol/L (98-107); Creatinine Clearance Estimated 48 mL/min (50-200); Estimated Glomerular Filt Rate 81 ml/min (>60); GFR (African American) 98 ML/MIN (>60); Globulin 3.1 g/dL (1.3-3.2); Glucose 112 mg/dl (74-100); Potassium 4.3 mmoL/L (3.5-5.1); Sodium 141 mmol/L (136-145); Total Protein,Serum 7.7 g/dl (6.3-8.2)
[2023-04-28 11:36] LABS: Troponin I < 0.01 ng/ml (0.00-0.034)
--- NOTE | 2023-04-28 11:52 | PC.NURSE ---
ROUNDED ON PT, IMPROVEMENT OF HEADACHE. WARM BLANKET PROVIDED. CALL LIGHT WITHIN REACH
--- NOTE | 2023-04-28 12:25 | PC.NURSE ---
DR HARRIS AT BEDSIDE TO UPDATE PT
== END 2023-04-28 12:50 | disposition home or self-care (01) ==
PROVIDERS: Emergency Provider Emergency Medicine; PCP Nurse Practitioner Family
DX: G44.89 Other headache syndrome (principal); R42 Dizziness and giddiness; R00.2 Palpitations
CPT/HCPCS: 71045; 80053; 84484; 85025; 93005; 96374; 99285; J0131

== ENCOUNTER 2024-03-03 14:32 | Outpatient (CLI) | payer OTHER, SELFPAY ==
[2024-03-03 14:44] LABS: Basophils # 0.1 K/mm3 (0-0.2); Basophils % 0.7 % (0.1-2.0); Eosinophils # 0.3 K/mm3 (0.0-0.4); Eosinophils % 4.8 % (0.1-12.0); Hematocrit 41.4 % (37.0-47.0); Hemoglobin 13.9 g/dL (12.2-16.2); Lymphocytes # 1.4 K/mm3 (0.7-4.5); Lymphocytes % 22.9 % (10-50); Mean Corpuscular HGB Conc 33.7 g/dL (31.8-35.4); Mean Corpuscular Hemoglobin 31.4 pg (27.0-31.2); Mean Corpuscular Volume 93.3 fl (81-99); Mean Platelet Volume 9.2 fl (7.4-10.4); Monocytes # 0.6 K/mm3 (0.1-1.0); Neutrophils # 3.9 K/mm3 (1.8-7.8); Neutrophils % 62.6 % (37.0-80.0); Platelet Count 212 K/mm3 (142-424); Red Blood Count 4.44 M/mm3 (4.20-5.40); Red Cell Distribution Width 13.5 % (11.5-17.5); White Blood Count 6.2 K/mm3 (4.8-10.8)
[2024-03-03 15:26] LABS: Alanine Aminotransferase 27 U/L (12-78); Albumin/Globulin Ratio 1.5 (1.1-1.8); Alkaline Phosphatase 127 U/L (38-126); Anion Gap 14.4 mEq/L (5-15); Aspartate Amino Transferase 28 U/L (14-36); Bilirubin,Total 0.5 mg/dl (0.2-1.3); Blood Urea Nitrogen 20 mg/dl (7-17); Calcium 9.7 mg/dl (8.4-10.2); Carbon Dioxide 27 mmol/L (22.0-30.0); Chloride 105 mmol/L (98-107); Chol/HDL Ratio 4.2 (1-3.5); Cholesterol 187 mg/dl (140-200); Estimated Glomerular Filt Rate 81 ml/min (>60); GFR (African American) 98 ML/MIN (>60); Globulin 2.7 g/dL (1.3-3.2); Glucose 99 mg/dl (74-100); HDL Cholesterol 45 mg/dl (40-60); Potassium 4.4 mmoL/L (3.5-5.1); Sodium 142 mmol/L (136-145); Total Protein,Serum 6.7 g/dl (6.3-8.2); Triglycerides 172 mg/dl (30-150); VLDL Cholesterol 34 mg/dL (0-40)
[2024-03-03 15:36] LABS: Direct LDL Cholesterol 106.56 mg/dL (100-129)
[2024-03-03 15:37] LABS: Free T4 (Free Thyroxine) 1.01 ng/dl (0.78-2.19)
[2024-03-03 15:42] LABS: T4 (Thyroxine) 9.7 ug/dl (5.53-11.0)
[2024-03-03 15:55] LABS: Thyroid Stimulating Hormone 2.17 uIU/mL (0.465-4.68)
[2024-03-03 16:15] LABS: Vitamin B12 410 pg/mL (239-931)
[2024-03-03 17:55] LABS: Ferritin 35.8 ng/ml (11.1-264)
[2024-03-05 08:24] LABS: Triiodothyronine (T3) Free 2.9 pg/mL (2.0-4.4)
== END 2024-03-03 23:59 | disposition home or self-care (01) ==
LOC: LAB.DROPOF 14:33
PROVIDERS: PCP Nurse Practitioner Family; Visit Provider Nurse Practitioner Family
DX: E03.9 Hypothyroidism, unspecified (principal); R53.83 Other fatigue; I10 Essential (primary) hypertension
CPT/HCPCS: 80050; 80053; 80061; 82607; 82728; 84436; 84439; 84443; 84481; 85025

== ENCOUNTER 2025-03-29 13:35 | Outpatient (CLI) | payer OTHER, SELFPAY ==
--- OUTSIDE RECORDS SUMMARY | 2016-03-12 10:16 | XMS_ITS | Encounter Summary ---
Author Organization [place] [address] Care Team Providers Care Mail Examiner Name Role Phone Duarte Romo MD, Mahesh Sandoval Primary Care Provid er Encounter Details Date Type Department Care Team (Latest Contact Info) Description 03/12/2016 10:16 AM EDT Hospital Encounter SE Referral Lab 1 [place], [place] [phone] Mahesh Bishop MD [address] [place] [address] Pain in right knee; Pain [...] RATE AUTOMATED (03/12/2016 12:00 PM EDT) Pathologist [facility] Sed Rate 24 0 - 30 mm/hr [facility] Blood specimen (specimen) 03/12/2016 12:00 PM EDT 03/12/2016 3:20 PM EDT us Mahesh Bishop MD HEMATOLOGY ORDERABLES Fi nal Result Performing Organization Address [facility] [place] [address] * CBC WITH AUTO DIFF (03/12/2016 12:00 PM EDT) [facility] WBC 5.5 4.0 - 11.0 x10(3)/mcL [facility] RBC 4.42 3.80 - 5.10 x10(6)/mcL [facility] Hgb 13.6 12.0 - 15.6 gm/dL [facility] Hct 39.2 35.7 - 45.9 % [facility] MCV 88.7 82.5 - 99.8 fL [facility] MCH 30.7 27.0 - 34.3 pg [facility] MCHC 34.6 32.1 - 35.3 gm/dL [facility] RDW 13.1 11.5 - 15.0 % [facility] Platelet 174 144 - 423 x10(3)/mcL [facility] MPV 9.0 6.8 - 10.8 fL [facility] Blood specimen (specimen) 03/12/2016 12:00 PM EDT 03/12/2016 3:20 PM EDT us Mahesh Bishop MD HEMATOLOGY ORDERABLES Fi nal Result Performing Organization Address City/[facility] Co de Phone Number [address] [address] * C-REACTIVE PROTEIN (03/12/2016 12:00 PM EDT) Pathologist [facility] CRP 1.88 <=5.00 mg/L [facility] Blood specimen (specimen) 03/12/2016 12:00 PM EDT 03/12/2016 3:20 PM EDT us Mahesh Bishop MD CHEMISTRY ORDERABLES Fin al Result [facility] 1 [place] [address] documented in this encounter Visit Diagnoses Diagnosis Pain in right knee Pain in joint, lower leg Pain in left knee Pain in joint, lower leg documented in this encounter Care Teams Mail Examiner Relationship Specialty Start Date End Date Mahesh Ramachandran Sr., MD [address] [place] [phone] PCP - General 08/22/11 03/13/20 documented as of this encounter
--- OUTSIDE RECORDS SUMMARY | 2020-03-02 14:26 | XMS_ITS | Encounter Summary ---
Author Organization [place] [address] Care Team Providers Care Methods Time Analyst Name Role Phone Duarte Romo MD, Mahesh Sandoval Primary Care Provid er Encounter Details Date Type Department Care Team (Latest Contact Info) Description 03/02/2020 2:26 PM EDT Hospital Encounter [facility] Referral Lab [address] [place], [place] [id number] Mahesh Bishop MD [address] [place] [address] Pain in left knee; Pain [...] nal Result [facility] [address] [facility] , [place] [address] * CBC WITH DIFF (03/15/2020 10:02 AM [...] 03/15/2020 3:49 PM EDT [facility] Comment:Neutrophils equals s egs plus bands Imm Gran% 0.3 % 03/15/2020 3:49 PM EDT [facility] Comment:Automated count of m etamyelocytes, myelocytes and promyelocytes. Lymph Percent 21.5 % 03/15/2020 3:49 PM EDT [facility] [place] Percent 9.9 % 03/15/2020 3:49 PM EDT [facility] Eos Percent 1.7 % 03/15/2020 3:49 PM EDT [facility] Baso Percent 0.5 % 03/15/2020 3:49 PM EDT [facility] Neut # 3.9 1.6 - 6.1 x10(3)/mcL 03/15/2020 3:49 PM EDT [facility], [facility] Comment:Neutrophils equals s egs plus bands IMMGRAN# 0.0 0.0 - 0.1 x10(3)/mcL 03/15/2020 3:49 PM EDT [facility], [facility] Comment:Automated count of m etamyelocytes, myelocytes and promyelocytes. An absolute IG <0.1 is reported as 0.0. Lymph # 1.3 1.2 - 3.9 x10(3)/mcL 03/15/2020 3:49 PM EDT [facility] Taylor # 0.6 0.3 - 0.9 x10(3)/mcL 03/15/2020 3:49 PM EDT [facility] Eos# 0.1 0.0 - 0.5 x10(3)/mcL 03/15/2020 3:49 PM EDT [facility], [facility] Baso # 0.0 0.0 - 0.1 x10(3)/mcL 03/15/2020 3:49 PM EDT [facility], [facility] Blood Venipuncture / Unknown 03/15/2020 10:02 AM EDT 03/15/2020 10:02 AM EDT us Mahesh Bishop MD HEMATOLOGY ORDERABLES Fi nal Result [facility] 1 [facility] , [address] [place], [place] [id number] * C-REACTIVE PROTEIN (03/15/2020 10:02 AM EDT) CRP 1.76 <=5.00 mg/L 03/15/2020 4:32 PM EDT [facility] Blood Venipuncture / Unknown 03/15/2020 10:02 AM EDT 03/15/2020 10:02 AM EDT us Mahesh Bishop MD CHEMISTRY ORDERABLES Fin al Result [facility] [address] [facility] , [place] [address] documented in this encounter Visit Diagnoses Diagnosis Pain in left knee Pain in joint, lower leg Pain in right knee Pain in joint, lower leg documented in this encounter Care Teams Methods Time Analyst Relationship Specialty Start Date End Date Mahesh Ramachandran Sr., MD [address] [place] [phone] PCP - General 08/22/11 03/13/20 documented as of this encounter
[2025-03-29 18:21] LABS: Hematocrit 42.1 % (37.0-47.0); Hemoglobin 14.1 g/dL (12.2-16.2); Immature Granulocytes % 0.3 %; Mean Corpuscular HGB Conc 33.5 g/dL (31.8-35.4); Mean Corpuscular Hemoglobin 30.2 pg (27.0-31.2); Mean Corpuscular Volume 90.1 fl (81-99); Nucleated Red Blood Cells % 0 %; Platelet Count 264 K/mm3 (142-424); Red Blood Count 4.67 M/mm3 (4.20-5.40); Red Cell Distribution Width-SD 39.8 fL; White Blood Count 7.6 K/mm3 (4.8-10.8)
[2025-03-29 19:26] LABS: Alanine Aminotransferase 23 U/L (12-78); Albumin Level 4.2 g/dl (3.5-5.0); Albumin/Globulin Ratio 1.6 (1.1-1.8); Alkaline Phosphatase 113 U/L (38-126); Anion Gap 13.1 mEq/L (5-15); Aspartate Amino Transferase 27 U/L (14-36); Bilirubin,Total 0.5 mg/dl (0.2-1.3); Blood Urea Nitrogen 22 mg/dl (7-17); Calcium 9.4 mg/dl (8.4-10.2); Carbon Dioxide 30 mmol/L (22.0-30.0); Chloride 99 mmol/L (98-107); Cholesterol 197 mg/dl (140-200); Creatinine,Serum 0.90 mg/dl (0.52-1.04); Estimated Glomerular Filt Rate 61 ml/min (>60); GFR (African American) 73 ML/MIN (>60); Globulin 2.6 g/dL (1.3-3.2); Glucose 60 mg/dl (74-100); HDL Cholesterol 39 mg/dl (40-60); Magnesium 1.8 mg/dl (1.6-2.3); Potassium 4.1 mmoL/L (3.5-5.1); Sodium 138 mmol/L (136-145); Total Protein,Serum 6.8 g/dl (6.3-8.2); Triglycerides 277 mg/dl (30-150)
[2025-03-29 19:56] LABS: Thyroid Stimulating Hormone 2.43 uIU/mL (0.465-4.68)
[2025-03-29 20:15] LABS: Vitamin B12 355 pg/mL (239-931)
--- OUTSIDE RECORDS SUMMARY | 2025-03-31 09:54 | XMS_ITS | Clinical Summary ---
Author Organization [facility] Address [facility] [place] [address] Care Team Providers Care Roster Clerk Name Role Phone Mckayla Larry MD Unavailable [phone] Rachel Barrow MD Unavailable [phone] Rachel Barrow MD Unavailable [phone] Leslee Hunter [facility] Unavailable [phone] Gianna Bullard RN Unavailable Unavaila Rachel Mistry MD Unavailable Nohemyi Kathy Breen MD Unavailable [phone] Zhane Baker Unavailable Stefan John MD Unavailable [phone] Jerri Colvin Primary Care Provider [phone] Source Comments This information has been disclosed to you from confidential records protectedfrom disclosure by state law. You shall make no further disclosure of thisinformation without the specific, written, and informed release of theindividual to whom it pertains, or as otherwise permitted by law. A generalauthorization for the release of medical or other information is not sufficientfor the purposes of therelease of HIV test results or diagnoses. [id number] Allergies Active Allergy Reactions Criticality Noted Date Comments Adhesive Tape-Silicones Hives 05/22/2015 Does okay with paper tape Medications rosuvastatin (CRESTOR) 40 MG tablet Take 1 tablet (40 mg total) by mouth daily. Active hydroCHLOROthiaz timoteo (HYDRODIURIL) 25 MG tablet Take 1 tablet (25 mg total) by mouth daily. Active CALCIUM CARBONATE/VITAMI N D3 (CALCIUM+D ORAL) Take 2 tablets by mouth daily. Active multivitamin capsule Take 1 capsule by mouth daily. Active levothyroxine (SYNTHROID, LEVOTHROID) 25 MCG tablet Take 1 tablet (25 mcg total) by mouth every morning before breakfast. 4 Active traZODone (DESYREL) 100 MG tablet Take 1 tablet (100 mg total) by mouth at bedtime. Active lisinopriL (PRINIVIL) 40 MG tablet Take 1 tablet (40 mg total) by mouth daily. 1 Active omeprazole (PRILOSEC) 20 MG capsule Take 1 capsule (20 mg total) by mouth daily. Active cholecalciferol, vitamin D3, 50 mcg (2,000 unit) Tab Take by mouth. Active acetaminophen (TYLENOL) 500 MG tablet Take 2 tablets (1,000 mg total) by mouth every 8 hours. 60 tablet 04/14/2021 2:43 PM EDT 1 Active senna-docusate (SENNA-S) 8.6-50 mg per tablet Take 1 tablet by mouth every 8 hours as needed for Constipation. 40 tablet 04/14/2021 2:43 PM EDT 1 Active naloxone (NARCAN) 4 mg/actuation [place] Apply 1 spray in one nostril if needed. Call 911. May repeat dose in other nostril if no response in 3 minutes. 2 each 1 Active venlafaxine (EFFEXOR-XR) 75 MG 24 hr capsuleIndicatio ns:Ductal carcinoma in situ (DCIS) of breast, unspecified laterality Take 1 capsule (75 mg total) by mouth daily. 90 capsule 4 1 Active vitamin E 400 UNIT capsule Take 1 capsule (400 Units total) by mouth daily. 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 Hallux valgus, acquired 08/04/2014 Other hammer toe (acquired) 08/04/2014 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 08/04/2014 Personal history of breast cancer 06/02/2012 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 02/14/2012 Cancer Staging:Clinical: Unsigned Pathologic:Stage 0(Tis (DCIS), N0(i-), cM0) - Signed by Rachel Barrow on 11/28/2013 Overview (02/14/2012): S/p lumpectomy, APBI Diffuse cystic mastopathy 12/12/2011 Immunizations Immunization Administration Dates Next Due COVID-19, mRNA, Pfizer monovalent 09/21/2020 Influenza, high-dose, trival ent, preservative-free 06/11/2019,07/08/2018,07/26/2017 TD PRESERVATIVE FREE 09/29/1996 Zoster, live 06/16/2013 Family History Medical History Relation Comments Colon Cancer Brother Cervical Cancer Mother Colon Cancer Mother Uterine Cancer Mother Thyroid nodules Sister Breast Cancer Neg Hx Relation Status Comments Brother Father Mother Sister Social History Tobacco Use Types Packs/Day Years Used Date Smoking Tobacco: Never Smokeless Tobacco: Never Tobacco Cessation:Counseling Given: Not Answered Comments:12/05/2011 passive smoke exposure: yes Alcohol Use Standard Drinks/Week Comments No 0 (1 standard drink = 0.6 oz pur e alcohol) PHQ-2 Answer Date Recorded PHQ-2 Total Score 0 01/25/2021 Comments No Sex and Gender Information Value Date Recorded Sex Assigned at Not on file Legal Sex Female 7:08 PM EST Gender Identity Not on file Sexual Orientation Not on file Last Filed Vital Signs Vital Sign Reading Time Taken Comments Blood Pressure 144/88 04/10/2023 9:51 AM EDT Pulse 75 04/10/2023 9:51 AM EDT Temperature 36.6 C (97.9 F) 03/30/2023 10:04 AM EDT Respiratory Rate 15 04/10/2023 9:51 AM EDT Oxygen Saturation 100% 04/10/2023 9:51 AM EDT Inhaled Oxygen Concentration 100% 04/10/2023 9 :51 AM EDT Weight 63.5 kg (140 lb) 04/10/2023 9:51 AM EDT Height 157.5 cm (5' 2 ) 04/10/2023 9:51 AM EDT Body Mass Index 25.61 04/10/2023 9:51 AM EDT Plan of Treatment Health Maintenance Due Date Last Done Comments ASCVD Assessment 1946 Abnormal Colonoscopy Follow Up 1946 Alcohol Misuse Screening 1964 Colonoscopy 1986 Colorectal Cancer Screening (MyChart) 1986 Cologuard (FIT-DNA) 1991 Stool Testing (gFOBT) 1991 Immunization: Pneumococcal ( 1 of 1 - PCV) 1996 Osteoporosis Screening (DXA Scan) 1996 Immunization: DTaP/Tdap/Td ( 1 - Tdap) 09/30/1996 09/29/1996 Immunization: Zoster (2 of 3) 08/11/2013 06/16/2013 Thyroid Function/TSH (MyChart) 11/23/2014 11/23/2013 Immunization: RSV (Adult) (1 - 1-dose 75+ series) 2021 Depression Screening 01/25/2022 01/25/2021, 04/16/20 18 Renal Function/GFR 03/30/2024 03/30/2023, 0 09/13/2021, 04/19/2021, Additional history exists Immunization: COVID-19 ( season) 2025 05/01/2022, 11/21/2021, 07/04/2021, Additional history exists Immunization: Influenza (MyC espana) (#1) 2025 07/04/2022, 06/11/2019, 07/08/2018, Additional history exists Medical Devices Implanted Type Area [employer] Device Identifier Shelf Expiration Date Model / Serial / Lot Fans Clerk Anastomosis [place] Microvascular Stainless Steel Titanium Od2 Mm Ring Pin Protective Cover Jaw Assembly Sterile Latex Free Disposable - [id number] Implanted:Qty: 1 on 04/10/2021 by Rachel Bolanos MD at [facility] Main Other Left: Breast [employer]IS 08/29/2025 [id number] / / [id number] Fans Clerk Anastomosis [place] Stainless Steel Polyethylene Od2.5 Mm Microvascular Ring Pin Protective Cover Jaw Assembly Sterile Latex Free Disposable - [id number] Implanted:Qty: 1 on 04/10/2021 by Rachel Bolanos MD at [facility] Main Other Left: Breast [employer]IS 07/25/2025 [id number] / / [id number] Fans Clerk Anastomosis [place] Stainless Steel Polyethylene Od2.5 Mm Microvascular Ring Pin Protective Cover Jaw Assembly Sterile Latex Free Disposable - [id number] Implanted:Qty: 1 on 04/10/2021 by Rachel Barrow MD at [facility] Main Other Right: Breast [employer]IS 07/25/2025 [id number] / / [id number] Procedures Procedure Name Priority Date/Time Associated Diagnosis Comments BASIC METABOLIC PANEL Add-On 03/30/2023 10:40 AM EDT TSH Routine 11/23/2013 12:37 PM EDT from Last 3 Months or Most Recently Relevant to Health Maintenance Results * Basic metabolic panel (03/30/2023 10:40 AM EDT) Sodium 137 133 - 146 mmol/L 03/30/2023 11:03 AM EDT [facility] Potassium 4.3 3.5 - 5.3 mmol/L 03/30/2023 11:03 AM EDT [facility] Comment:Hemolysis Present: R esults may be influenced artificially. Recommend recollection as clinically indicated. Chloride 105 98 - 110 mmol/L 03/30/2023 11:03 AM EDT [facility] CO2 23 21 - 33 mmol/L 03/30/2023 11:03 AM EDT [facility] Anion Gap 9 3 - 16 mmol/L 03/30/2023 11:03 AM EDT [facility] BUN 17 7 - 25 mg/dL 03/30/2023 11:03 AM EDT [facility] Creatinine 0.82 0.60 - 1.30 mg/dL 03/30/2023 11:03 AM EDT [facility] Glucose 91 70 - 100 mg/dL 03/30/2023 11:03 AM EDT [facility] Calcium 9.4 8.6 - 10.3 mg/dL 03/30/2023 11:03 AM EDT [facility] Osmolality, Calculated 285 278 - 305 mOsm/kg 03/30/2023 11:03 AM EDT [facility] EGFR 74 03/30/2023 11:03 AM EDT [facility] Comment:As of 2021, the estimated GFR is calculated using the 2020 Chronic Kidney Disease Epidemiology Collaboration (CKD-EPI) equation. In line with the NKF-ASN Task Force Recommendations, this equation does not include a coefficient for race. A single eGFR value is calculated for each patient. The reference interval is >60 mL/min/1.73m2. eGFR values greater than 90 will be reported as >90mL/min/1.73m2. Reference: Mario C, Paul M, Kendra DC, Pastor ND, Lorraine [place], Varsha LA, et al. A Unifying Approach for GFR Estimation: Recommendations of the NKF-ASN Task Force on Reassessing the inclusion of Race in Diagnosing Kidney Disease. Am J Kidney Dis. 2020. Plasma 03/30/2023 10:4 0 AM EDT 03/30/2023 10:52 AM EDT us Sudhir Banks MD LAB BLOOD ORDERABLES Final R esult [facility] [address] [place] [address], [facility] * TSH (Thyroid Stimulating Hormone) (11/23/2013 12:37 PM EDT) TSH 1.28 0.45 - 4.50 mIU/L 11/23/2013 3:08 PM EDT [facility] Serum specimen (specimen) 11/23/2013 12:37 PM EDT 11/23/2013 1:41 PM EDT cMkayla Larry MD LAB BLOOD ORDERABLES Final Res ult [facility] [address] 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 Expl anation Advance Directive - scan 01/03/2012 2:24 PM * Full Code (Latest Code Status on File) Date Activated Date Inactivated Comments 04/10/2021 7:11 PM 04/14/2021 7:09 PM Care Teams Roster Clerk Relationship Specialty Start Date End Date Jerri Colvin [address] [place] [address] [place] [address] PCP - General 09/13/21 Mckayla Larry MD Medical Oncologist Breast Oncology 06/02/12 Rachel Barrow MD Surgical Oncologist Breast Surgery 01/25/21 Rachel Barrow MD Initiating Oncologist Surgical Oncology 01/25/21 Leslee Hunter, JEEP DRIVER [address] [place] [address] Nurse Practitioner Surgical Oncology 01/25/21 Gianna Bullard, RN Registered Nurse Breast Surgery 01/25/21 Rachel Bolanos MD Surgical Oncologist Plastic Surgery 01/31/21 Kathy Payne MD [address] [place] [address] [id number] Surgical Oncologist Breast Oncology 04/20/21 Zhane Baker [address] [place] [phone] Nurse Practitioner [facility] H[facility]ology 04/26/21 Stefan John MD [address] [facility] [place] [id number] Surgical Oncologist Plastic Surgery 08/29/21
--- OUTSIDE RECORDS SUMMARY | 2025-03-31 09:54 | XMS_ITS | Continuity of Care Document ---
Author Organization [facility] Address [address] [place] [address] Phone Care Team Providers Care Marketing Representative Name Role Phone Alber Phillipsw Primary Care Provider Encounters Date Type Department Care Team Description 01/08/2023 6:15 AM EDT - 01/08/2023 11:59 PM EDT Hospital Encounter [facility] [address] [place] [address] Hilda Parish APRN Vermani, Samir D, MD Gastroesophageal reflux disease without esophagitis; Dysphagia, unspecified type; Garcia's esophagus without dysplasia; Polyp of colon, unspecified part of colon, unspecified type; Family hx of colon cancer Discharge Disposition: Home or Self Care 12/31/2022 Orders Only [facility] [address] [place] [address] Vincenzo Elmore MD Screening for colon cancer (Primary Dx) 11/26/2022 9:50 AM EDT Telemedicine [facility] [address] [place] [place] [facility] [address] Hilda Parish APRN Gastroesophageal reflux disease without esophagitis (Primary Dx); Dysphagia, unspecified type; Polyp of colon, unspecified part of colon, unspecified type; Family hx of colon cancer; Garcia's esophagus without dysplasia 11/21/2022 Telephone [facility] [address] [place] [address] Vincenzo Elmore MD Procedure 10/05/2021 10:40 AM EST Office Visit [facility] NPTFTT [address] [place] [address] Iza Ortega MD Screening mammogram, encounter for (Primary Dx); Well woman exam 10/31/2020 Telephone [facility] [address] [phone] Alex Luong MD Results (lab results from [facility]) 10/11/2020 Travel 10/11/2020 10:30 AM EDT Office Visit [facility] [address] [phone] Alex Luong MD Other hyperlipidemia (Primary Dx); Malignant hypertension; Obstructive sleep apnea 09/12/2020 Telephone [facility] [address] [phone] Alex Luong MD Results ([facility] M Sleep Study Report.) 08/14/2020 Travel 08/14/2020 9:45 AM EST - 08/14/2020 10:00 AM EST Surgery [facility] [address] [place] [address] Arie Mcnair MD CATARACT EXTRACTION WITH PHACOEMULSIFICATION AND INTRAOCULAR LENS 08/14/2020 10:11 AM EST Anesthesia Event [facility] [address] [place] [address] Obey Alas MD Stroupe, Howard L IV, MD 08/14/2020 8:38 AM EST - 08/14/2020 11:12 AM EST Hospital Encounter [facility] [address] [place] [address] Arie Mcnair MD Discharge Disposition: Home or Self Care 08/10/2020 9:46 AM EST - 08/10/2020 11:59 PM EST Hospital Encounter [facility] [address] [place] [address] Covid19, [facility] Pre-op testing; Encounter for laboratory testing for COVID-19 virus Discharge Disposition: Home or Self Care 08/01/2020 Telephone [facility] [address] [place] [phone] Alex Luong MD Dizziness 07/31/2020 Travel 07/31/2020 10:45 AM EST - 07/31/2020 11:00 AM EST Surgery [facility] [address] [place] [address] Arie Mcnair MD CATARACT EXTRACTION WITH PHACOEMULSIFICATION AND INTRAOCULAR LENS 07/31/2020 10:26 AM EST Anesthesia Event [facility] [address] [place] [address] Mitch Allan IV, MD Grigorieva, Anastassia, MD 07/31/2020 9:28 AM EST - 07/31/2020 11:23 AM EST Hospital Encounter [facility] [address] [place] [address] Arie Mcnair MD Discharge Disposition: Home or Self Care 07/27/2020 11:39 AM EST - 07/27/2020 11:59 PM EST Hospital Encounter [facility] [address] [place] [address] Covid19, [facility] Pre-op testing; Encounter for laboratory testing for COVID-19 virus Discharge Disposition: Home or Self Care 07/17/2020 Travel 07/11/2020 Travel 07/11/2020 9:47 AM EST - 07/11/2020 11:59 PM EST Hospital Encounter [facility] [address] [facility] [address] [place] [address] Alex Luong MD Malignant hypertension Discharge Disposition: Home or Self Care 07/11/2020 10:45 AM EST Office Visit [facility] [address] [place] [address] Alex Luong MD Malignant hypertension (Primary Dx); Other hyperlipidemia 07/10/2020 Telephone [facility] [address] [phone] Alex Luong MD Results (Lab Work ) 07/07/2020 Telephone [facility] [address] [phone] Alex Luong MD Non-scheduled Referral 07/06/2020 Travel 07/06/2020 3:15 PM EST Office Visit [facility] [address] [phone] Alex Luong MD Malignant hypertension (Primary Dx); Other hyperlipidemia; Chest discomfort; Insomnia, unspecified type 03/15/2020 10:00 AM EDT - 03/15/2020 10:01 AM EDT Hospital Encounter [facility] [address] [address] Mahesh Bishop MD Pain in left knee; Pain in right knee Discharge Disposition: Home or Self Care 03/15/2020 Travel 03/15/2020 10:02 AM EDT - 03/15/2020 11:59 PM EDT Hospital Encounter [facility] [address] [address] Mahesh Bishop MD Left knee pain, unspecified chronicity Discharge Disposition: Home or Self Care 03/15/2020 10:00 AM EDT Hospital Encounter [facility] [address] [place], [place] [address] Mahesh Bishop MD Right knee pain, unspecified chronicity Discharge Disposition: Home or Self Care 03/14/2020 Travel 03/02/2020 2:26 PM EDT Hospital Encounter [facility] Referral Lab [address] [place] [address] Mahesh Bishop MD Pain in left knee; Pain in right knee 01/30/2018 1:00 PM EDT Office Visit [facility] N[facility] [address] [place] [phone] Iza Ortega MD Well woman exam (Primary Dx) 01/23/2017 Telephone [facility] N[facility] [address] [place] [address] Iza Ortega MD Results 01/07/2017 2:45 PM EDT - 01/07/2017 11:59 PM EDT Hospital Encounter [facility] [address] [place] [address] Iza Ortega MD Post-menopausal Discharge Disposition: Home or Self Care 01/07/2017 1:40 PM EDT Office Visit [facility] NPTT [address] [place] [address] Iza Ortega MD Post-menopausal (Primary Dx); Well woman exam with routine gynecological exam 11/04/2016 11:13 PM EDT - 11/05/2016 4:48 AM EDT [facility] [place] [address] Pablo Smith MD Situational anxiety (Primary Dx); Dyspnea, unspecified type Discharge Disposition: Home or Self Care 03/12/2016 11:56 AM EDT - 03/12/2016 11:59 PM EDT Hospital Encounter [facility] [address] [place] [address] Mahesh Bishop MD Pain in right knee; Pain in left knee Discharge Disposition: Home or Self Care 03/12/2016 10:16 AM EDT Hospital Encounter [facility] Referral Lab [address] [place] [address] Mahesh Bishop MD Pain in right knee; Pain in left knee 03/12/2016 11:48 AM EDT - 03/12/2016 11:55 AM EDT [facility] [address] [place] [address] Mahesh Bishop MD Bilateral knee pain Discharge Disposition: Home or Self Care 02/14/2016 Telephone [facility] [address] [phone] Maryjane Duron MD Results 12/28/2015 Telephone [facility] [address] [phone] Maryjane Duron MD Visit Follow Up 12/28/2015 10:34 AM EDT - 12/28/2015 11:59 PM EDT Hospital Encounter [facility] [address] [place] [address] Maryjane Duron MD Pelvic pain in female Discharge Disposition: Home or Self Care 12/27/2015 3:25 PM EDT - 12/27/2015 11:59 PM EDT Hospital Encounter [facility] [place] [address] Ductal carcinoma in situ (DCIS) of left breast; Family history of uterine cancer; Well woman exam with routine gynecological exam; HX: breast cancer Discharge Disposition: Home or Self Care 12/27/2015 8:00 AM EDT Office Visit [facility] [address] [address] Maryjane Duron MD Well woman exam with routine gynecological exam (Primary Dx); Ductal carcinoma in situ (DCIS) of left breast; Pelvic pain in female; Family history of uterine cancer; HX: breast cancer 06/03/2015 2:47 PM EST - 06/03/2015 5:52 PM EST Emergency [facility] [place] [address] May Ray MD Pain in both lower extremities (Primary Dx) Discharge Disposition: Nursing Home Facility 05/29/2015 9:26 AM EST - 06/01/2015 4:04 PM EST Hospital Encounter [facility] [address] [address] Mahesh Bishop MD Discharge Disposition: Nursing Home Facility 05/29/2015 12:00 PM EST - 05/29/2015 3:00 PM EST Surgery [facility] [place] [address] Mahesh Bishop MD ARTHROPLASTY, KNEE, TOTAL, BILATERAL 05/29/2015 12:03 PM EST Anesthesia Event [facility] [place] [address] Mahesh Rosas MD Merkle Serey, Jennifer L, NP 05/22/2015 1:00 PM EDT - 05/22/2015 11:59 PM EDT Hospital Encounter [place] [address] Provider, [facility] Discharge Disposition: Home or Self Care 05/22/2015 11:15 AM EDT - 05/22/2015 12:59 PM EDT Hospital Encounter [facility] PRE-ADMIT TESTING [facility] [place] [address] Anticoagulation adequate (Primary Dx); Preop testing; Generalized OA Discharge Disposition: Home or Self Care 01/09/2015 10:15 AM EDT Office Visit [address] [phone] Jovi Villatoro DPM Congenital metatarsus primus varus (Primary Dx) 11/30/2014 5:15 AM EDT - 11/30/2014 11:59 PM EDT Hospital Encounter [facility] [place] [address] Routine gynecological examination Discharge Disposition: Home or Self Care 11/30/2014 11:00 AM EDT Office Visit [facility] [address] [place] [phone] Maryjane Duron MD Routine gynecological examination (Primary Dx) 10/03/2014 12:30 PM EDT Procedure visit [facility] [address] [place] [phone] Jovi Villatoro DPM Hallux valgus (acquired) (Primary Dx) 09/08/2014 12:00 PM EST Office Visit [address] [place] [phone] Jovi Villatoro DPM Hallux valgus (acquired) (Primary Dx) 08/18/2014 12:00 PM EST Office Visit [facility] [address] [address] Jovi Villatoro DPM Hallux valgus (acquired) (Primary Dx) 08/11/2014 12:00 PM EST Office Visit [address] [address] Jovi Villatoro, DPM Hallux valgus (acquired) (Primary Dx) 08/02/2014 2:30 PM EST Office Visit [facility] Podiatry [address] [place] [phone] Jovi Villatoro DPM Hallux valgus (acquired) (Primary Dx) 07/25/2014 1:00 PM EST - 07/25/2014 2:50 PM EST Surgery [facility] [address] [place] [address] Jovi Villatoro DPM BUNIONECTOMY TIGHT ROPE PROCEDURE 07/25/2014 11:31 AM EST - 07/25/2014 4:40 PM EST Hospital Encounter [facility] [address] [place] [phone] Jovi Villatoro DPM Discharge Disposition: Home or Self Care 07/19/2014 Orders Only [facility] Anesthesia [facility] [place] [address] Mahesh Russell MD Preop testing (Primary Dx) 03/15/2014 4:15 PM EDT Office Visit [facility] [address] [phone] Jovi Villatoro, OSMIN Hallux valgus, acquired, right (Primary Dx); Other hammer toe (acquired); Bunion, right 11/16/2013 4:15 AM EDT - 11/16/2013 12:29 PM EDT Hospital Encounter [facility] [place] [address] Other screening mammogram; Routine gynecological examination Discharge Disposition: Home or Self Care 11/16/2013 12:30 PM EDT - 11/16/2013 11:59 PM EDT Hospital Encounter [facility] [address] [place] [address] Maryjane Duron MD Post-menopausal (Primary Dx) Discharge Disposition: Home or Self Care 11/16/2013 9:40 AM EDT Office Visit [facility] [address] [place] [address] Maryjane Duron MD Other screening mammogram (Primary Dx); Routine gynecological examination 10/20/2012 2:50 AM EDT - 10/20/2012 11:59 PM EDT Hospital Encounter [facility] [place] [address] Routine gynecological examination Discharge Disposition: Home or Self Care 10/20/2012 9:40 AM EDT Office Visit [facility] [address] [place] [address] Maryjane Duron MD Routine gynecological examination (Primary Dx); Breast cancer (HCC) 08/26/2011 8:00 AM EST - 08/26/2011 10:15 AM EST Surgery [facility] [address] [place] [address] Jovi Villatoro DPM BUNIONECTOMY WITH KYLAH OSTEOTOMY 08/26/2011 6:40 AM EST - 08/26/2011 10:56 AM EST Hospital Encounter [facility] SAME DAY [facility] [address] [place] [address] Jovi Villatoro DPM Discharge Disposition: Home or Self Care 08/23/2011 2:28 PM EST - 08/23/2011 11:59 PM EST Hospital Encounter [facility] E[facility] [address] [place] [address] Jovi Villatoro DPM Discharge Disposition: Home or Self Care 08/23/2011 10:53 AM EST - 08/23/2011 2:27 PM EST Hospital Encounter [facility] PRE-ADMIT TESTING [address] [place] [address] Pat, [facility] Discharge Disposition: Home or Self Care 08/31/2007 8:41 PM EST - 08/31/2007 11:59 PM EST Hospital Encounter [facility] Too, Jovi L, MD 09/30/2003 3:16 PM EST - 09/30/2003 11:59 PM EST Hospital Encounter [facility] Jovi Gage MD 05/03/2002 Hospital Encounter [facility] Generic, Historical Provider 04/27/2002 4:33 AM EDT - 04/27/2002 11:59 PM EDT Hospital Encounter [facility] Ash Maddox MD 04/26/2002 12:09 PM EDT - 04/26/2002 11:59 PM EDT Hospital Encounter [facility] Ash Maddox MD 05/01/2001 9:05 AM EDT - 05/01/2001 11:59 PM EDT Hospital Encounter [facility] Ash Maddox MD 04/07/2000 3:48 AM EDT - 04/07/2000 11:59 PM EDT Hospital Encounter [facility] James Wetzel MD 03/14/2000 10:42 AM EDT - 03/14/2000 11:59 PM EDT Hospital Encounter [facility] James Wetzel MD 03/13/2000 11:32 AM EDT - 03/13/2000 11:59 PM EDT Hospital Encounter [facility] James Wetzel MD 01/16/1999 12:26 PM EDT - 01/16/1999 11:59 PM EDT Hospital Encounter [facility] Blaine Kaiser 02/13/1998 3:08 PM EDT - 02/13/1998 11:59 PM EDT Hospital Encounter [facility] Blaine Kaiser 01/17/1998 3:31 PM EDT - 01/17/1998 11:59 PM EDT Hospital Encounter [facility] Jovi Gage MD 01/21/1997 2:23 PM EDT - 01/21/1997 11:59 PM EDT Hospital Encounter [facility] Bl[facility] Kaiser 12/31/1995 3:02 PM EDT - 12/31/1995 11:59 PM EDT Hospital Encounter [facility] EPIC CON UNK [facility] Blaine Kaiser Allergies Active Allergy Reactions Criticality Noted Date Comments Adhesive Tape-Silicones Hives Low 05/22/2015 Can use paper tape Medications omeprazole (PRILOSEC) 20 mg Take 20 mg by mouth every other day. Active LEVOthyroxine (SYNTHROID) 25 mcg Oral Tablet Take 25 mcg by mouth every morning. Active venlafaxine (EFFEXOR) 75 mg Oral Tablet Take 75 mg by mouth every other day. Active traZODone (DESYREL) 100 mg Oral TabletIndicatio ns:takes 50 to 100 mg Take 100 mg by mouth nightly. Indications: takes 50 to 100 mg Active psyllium husk (METAMUCIL ORAL) Take by mouth daily as needed. Active amLODIPine (NORVASC) 10 mg Oral Tablet Take 1 Tab by mouth daily. 90 Tab 3 0 Active Additional Information Patient not taking.Reason: Therapy Completed, Reported on 01/08/2023 hydroCHLOROthia zide (HYDRODIURIL) 25 mg Oral Tablet Take 1 Tab by mouth daily. 90 Tab 3 0 Active nebivoloL (BYSTOLIC) 5 mg Oral Tablet Take 1 Tab by mouth daily. 0 Active Additional Information Patient not taking.Reason: Therapy Completed, Reported on 01/08/2023 lisinopriL (PRINIVIL;ZESTR IL) 20 mg Oral Tablet tablet Take 1 Tab by mouth daily. 30 Tab 11 1 Active rosuvastatin (CRESTOR) 40 mg Oral Tablet Take 1 Tab by mouth daily. 30 Tab 6 1 Active Additional Information Patient not taking.Reason: Therapy Completed, Reported on 01/08/2023 Coenzyme Q10 100 mg Oral Capsule Take 100 mg by mouth daily. 1 Active Cholecalciferol , Vitamin D3, (VITAMIN D3) 50 mcg (2,000 unit) Oral Tablet Take 2,000 Units by mouth daily. 30 Tab 6 1 Active nit6873-eil bcm-BtXy-YLp-as b-C (PLENVU) 140-9-5.2 gram Oral Powder in Packet, SequentialIndic ations:Polyp of colon, unspecified part of colon, unspecified type,Family hx of colon cancer Take 3 Packets by mouth Preprocedure for up to 1 dose. 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/2014 Bunionette 08/04/2014 Other hammer toe (acquired) 08/04/2014 Breast cancer 10/20/2012 Hypoxia Gastroesophageal reflux disease Essential hypertension Family History Medical History Relation Name Comments Arthritis Brother ra Cancer Brother colon Colon Cancer Brother Rheum Arthritis Brother Alzheimer's Disease Father High Blood Pressure Father Anesth Problems Mother slow to wake up Cancer Mother colon, cervical , uterus Colon Cancer Mother Thyroid Disease Mother Thyroid Disease Sister Heart Disease Son 1 valve surgery Migraines Son 1 Relation Name Status Comments Brother Alive Father Mother Sister Alive Son 1 Alive Son 2 Alive Social History Smoking Status as of 03/31/2025 Tobacco Use Types Packs/Day Years Used Date Smoking Tobacco: Never Assessed Sex and Gender Information Value Date Recorded Sex Assigned at Not on file Legal Sex Female 5:13 AM EDT Gender Identity Not on file Sexual Orientation Not on file Last Filed Vital Signs Vital Sign Reading Time Taken Comments Blood Pressure 155/84 01/08/2023 8:19 AM EDT Pulse 63 01/08/2023 8:19 AM EDT Temperature 36.4 C (97.5 F) 01/08/2023 6:48 AM EDT Respiratory Rate 16 01/08/2023 8:19 AM EDT Oxygen Saturation 94% 01/08/2023 8:19 AM EDT Inhaled Oxygen Concentration - - Weight 65.3 kg (144 lb) 01/08/2023 6:48 AM EDT Height 157.5 cm (5' 2 ) 01/08/2023 6:48 AM EDT Body Mass Index 26.34 01/08/2023 6:48 AM EDT Plan of Treatment Not on file Medical Devices Implanted Type Area Doctor Of Naprapathic Medicine Device Identifier Shelf Expiration Date Model / Serial / Lot Screw Compression Headless Thread Long 3.0 X 22mm - [id number] Implanted:Qty: 1 on 08/26/2011 by Jovi Villatoro DPM at [facility] Left: Toe SYNTHES-STRATEC: SYNTHES [facility] 02.226.12 2 / / Implant Bo Vo, Pro-Toe Size Zero Degrees Large - [id number] Implanted:Qty: 1 on 08/26/2011 by Jovi Villatoro DPM at [facility] Left: Toe 01/24/2019 [id number] / / Tightrope Mini Ft - [id number] Implanted:Qty: 1 on 07/25/2014 by Jovi Villatoro DPM at [facility] Right: Foot ARTHREX 04/27/2019 AR-8917DS / / [id number] Kit Disposable Pin Drill Trim-It 2mm X 100mm - [id number] Implanted:Qty: 1 on 07/25/2014 by Jovi Villatoro DPM at [facility] Right: Foot ARTHREX 12/27/2015 AR-4152DS / / [id number] Screw Low Profile Ti 2.4mm X 14mm Cannulated Partial Thread - [id number] Implanted:Qty: 1 on 07/25/2014 by Jovi Villatoro DPM at [facility] Right: Foot ARTHREX AR-8724-1 4PT / / Screw Micro Headless Comp Ft Cannulated Ti 2.5mm X 14mm - [id number] Implanted:Qty: 1 on 07/25/2014 by Jovi Villatoro DPM at [facility] Right: Foot ARTHREX AR-8725-1 4H / / Patella Porous 32mm X 10mm - [id number] Implanted:Qty: 1 on 05/29/2015 by Mahesh Bishop MD at [facility] Left: Knee GREG:GREG 10/28/2019 5878-065- 32 / / [id number] Pros Femoral Porous Cr Nexgen Size C Right - [id number] Implanted:Qty: 1 on 05/29/2015 by Mahesh Bishop MD at [facility] Right: Knee GREG:GREG 05/29/2023 5972-013- / / [id number] Patella Porous 32mm X 10mm - [id number] Implanted:Qty: 1 on 05/29/2015 by Mahesh Bishop MD at [facility] Right: Knee GREG:GREG 11/26/2024 5878-065- 32 / / [id number] Tibia Monoblock Cr Sz-3 10mm - [id number] Implanted:Qty: 1 on 05/29/2015 by Mahesh Bishop MD at [facility] Right: Knee GREG:GREG 09/27/2019 5886-043- / / [id number] Pros Femoral Porous Cr Nexgen Size C Left - [id number] Implanted:Qty: 1 on 05/29/2015 by Mahesh Bishop MD at [facility] Left: Knee GREG:GREG 09/26/2020 5972-013- / / [id number] Tibia Monoblock Cr Sz-3 10mm - [id number] Implanted:Qty: 1 on 05/29/2015 by Mahesh Bishop MD at [facility] Left: Knee GREG:GREG 04/26/2020 5886-043- 10 / / [id number] Lens Intraocular Preloaded 21.5 Diopter - [id number] Implanted:Qty: 1 on 07/31/2020 by Arie Mcnair MD at [facility] Right: Eye [facility] [id number] 03/24/2023 AU00T0.21 5 / [id number] / Lens Intraocular Preloaded 21.5 Diopter - [id number] Implanted:Qty: 1 on 08/14/2020 by Arie Mcnair MD at [facility] Left: Eye [facility] [id number] 05/26/2023 AU00T0.21 5 / [id number] / Explanted Type Area Doctor Of Naprapathic Medicine Device Identifier Shelf Expiration Date Model / Serial / Lot Wire Guide 1.1mm Non Threaded - [id number] Implanted:08/26 by Jovi Villatoro DPM (Quantity not on file) Left: Toe 292.623 / / Procedures Procedure Name Priority Date/Time Associated Diagnosis Comments COLONOSCOPY Routine 01/08/2023 8:07 AM EDT Polyp of colon, unspecified part of colon, unspecified type Family hx of colon cancer ESOPHAGOGASTRODUODENOSCOPY (EGD) Routine 01/08/2023 8:07 AM EDT Gastroesophagea l reflux disease without esophagitis Dysphagia, unspecified type Garcia's esophagus without dysplasia [facility] PATHOLOGY ORDER Routine 01/08/2023 7:43 AM EDT Gastroesophagea l reflux disease without esophagitis Dysphagia, unspecified type Garcia's esophagus without dysplasia Polyp of colon, unspecified part of colon, unspecified type Family hx of colon cancer INTRAOP AIRWAY PLACEMENT Routine 10:15 AM EST CATARACT EXTRACTION WITH PHACOEMULSIFICATION AND INTRAOCULAR LENS 08/14/2020 10:10 AM EST Nuclear sclerotic cataract of left eye Special Needs TOPICAL/MAC, AXIAL 22.92 MM CORONAVIRUS 2018 Routine 08/10/2020 9:44 AM EST Pre-op testing Encounter for laboratory testing for COVID-19 virus SCANNED RADIOLOGY REPORT 2:58 PM EST INTRAOP AIRWAY PLACEMENT Routine 10:32 AM EST CATARACT EXTRACTION WITH PHACOEMULSIFICATION AND INTRAOCULAR LENS 07/31/2020 10:26 AM EST Nuclear sclerotic cataract of right eye Special Needs TOPICAL/MAC, AXIAL 23.13 MM 07/14 CORONAVIRUS 2019 Routine 07/27/2020 11:38 AM EST Pre-op testing Encounter for laboratory testing for COVID-19 virus [facility] US VISCERAL VASCULAR COMPLETE Routine 07/11/2020 10:27 AM EST Malignant hypertension POCT EKG Routine 07/06/2020 3:52 PM EST Malignant hypertension CT LOWER EXTREMITY LEFT WO CONTRAST Routine 03/15/2020 10:45 AM EDT Left knee pain, unspecified chronicity CT LOWER EXTREMITY RIGHT WO CONTRAST Routine 03/15/2020 10:45 AM EDT Right knee pain, unspecified chronicity SEDIMENTATION RATE AUTOMATED Routine 10:02 AM EDT Pain in left knee Pain in right knee CBC WITH DIFF Routine 03/15/2020 10:02 AM EDT Pain in left knee Pain in right knee C-REACTIVE PROTEIN Routine 03/15/2020 10:02 AM EDT Pain in left knee Pain in right knee DX BONE DENSITY AXIAL SKELETON Routine 01/07/2017 3:30 PM EDT Post-menopausal SCANNED EKG 11/15/2016 6:[address] ANGIOGRAM CHEST W CONTRAST STAT 2:40 AM EDT TROPONIN-T STAT 11/05/2016 2:00 AM EDT D-DIMER STAT 11/04/2016 11:57 PM EDT DIFFERENTIAL STAT 11/04/2016 11:50 PM EDT TROPONIN-T STAT 11/04/2016 11:50 PM EDT BASIC METABOLIC PANEL STAT 11/04/2016 11:50 PM EDT CBC WITH DIFF STAT 11/04/2016 11:50 PM EDT XR CHEST PA AND LATERAL UNA 11/05/19 17 10:51 PM EDT EK EKG 12 LEAD STAT 11/04/2016 10:[address] LOWER EXTREMITY RIGHT WO CONTRAST Routine 03/12/2016 12:20 PM EDT Bilateral knee pain CT LOWER EXTREMITY LEFT WO CONTRAST Routine 03/12/2016 12:20 PM EDT Bilateral knee pain DIFFERENTIAL Routine 03/12/2016 12:00 PM EDT SEDIMENTATION RATE AUTOMATED Routine 12:00 PM EDT Pain in right knee Pain in left knee C-REACTIVE PROTEIN Routine 03/12/2016 12:00 PM EDT Pain in right knee Pain in left knee CBC WITH DIFF Routine 03/12/2016 12:00 PM EDT Pain in right knee Pain in left knee US PELVIS AND TRANSVAGINAL NON OB COMPLETE Routine 12/28/2015 11:03 AM EDT Pelvic pain in female 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 CYTOLOGY REPORT Routine 12/27/2015 8:14 AM EDT SCANNED EKG 06/05/2015 11:02 AM EST SCANNED RHYTHM STRIPS 06/05/2015 11:02 AM EST VA US LOWER EXTREMITY VENOUS RIGHT STAT 06/03/2015 3:29 PM EST HEMOGLOBIN AND HEMATOCRIT Early AM 2014 5:27 AM EST BASIC METABOLIC PANEL Routine 06/01/2015 5:27 AM EST NM LUNG SCAN PERFUSION ONLY STAT 10/2014 6:59 PM EST URINE CULTURE (NO STAIN) Routine 015 12:32 PM EST URINALYSIS Routine 05/31/2015 12:32 PM EST TROPONIN-T STAT 05/31/2015 9:57 AM EST BLOOD GAS ARTERIAL Routine 05/31/2015 9:57 AM EST CBC Routine 05/31/2015 9:57 AM EST BASIC METABOLIC PANEL STAT 05/31/2015 9:57 AM EST NT PROBNP STAT 05/31/2015 9:57 AM EST EK EKG 12 LEAD Routine 05/31/2015 9:48 AM EST XR CHEST AP PORTABLE STAT 05/31/2015 9:46 AM EST HEMOGLOBIN AND HEMATOCRIT Early AM 2014 4:46 AM EST HEMOGLOBIN AND HEMATOCRIT Early AM 2014 11:23 AM EST IP CONSULT TO SOCIAL WORK Routine 2014 4:59 PM EST IP CONSULT TO CARE COORDINATION Routine 05/29/2015 4:59 PM EST XR KNEE LEFT AP AND LATERAL UNA 08/2014 4:15 PM EST XR KNEE RIGHT AP AND LATERAL UNA 08/2014 4:14 PM EST IP CONSULT TO HOSPITALIST Routine 2014 2:37 PM EST Procedure Note - Octavia Ramos MD - 05/29/2015 5:11 PM ESTThis note is in progress. Consult Dictated by Eugene Ramos MD, Dictation# [id number] Active Hospital Problems Diagnosis Primary osteoarthritis of both knees Hypothyroidism GERD (gastroesophageal reflux disease) HTN (hypertension) Resolved Hospital Problems Diagnosis No resolved problems to display. S/p BILATERAL TOTAL KNEE REPLACEMENT 05/29/15 Xarelto. Eugene Ramos ARTHROPLASTY, KNEE, TOTAL, BILATERAL 05/29/2015 12:05 PM EST Primary localized osteoarthrosis, lower leg, left Special Needs CPT;17945 REV; DATE CHG FROM 07/31/15 TO 05/29 PER FAX RP 04/13REV PROC CH FR LEFT TO INDIO PER CAR PAT UPDATED SPECIMEN STAT 05/29/2015 10:37 AM EST CROSSMATCH SUMMARY STAT 05/29/2015 10:26 AM EST PREADMISSION TYPE AND SCREEN Pre-Op 3:04 PM EDT Anticoagulation adequate ANTIBODY SCREEN IGG Pre-Op 05/22/2015 1:20 PM EDT ABORH Pre-Op 05/22/2015 1:20 PM EDT DIFFERENTIAL Pre-Op 05/22/2015 1:20 PM EDT BASIC METABOLIC PANEL Routine 05/22/2015 1:20 PM EDT Preop testing Generalized OA PT / INR Pre-Op 05/22/2015 1:20 PM EDT Anticoagulation adequate PARTIAL THROMBOPLASTIN TIME Pre-Op 04/28 1:20 PM EDT Anticoagulation adequate URINALYSIS Pre-Op 05/22/2015 1:20 PM EDT Anticoagulation adequate CBC WITH DIFF Pre-Op 05/22/2015 1:20 PM EDT Anticoagulation adequate STAPHYLOCOCCUS AUREUS SCREEN Pre-Op 1:20 PM EDT Anticoagulation adequate EK EKG 12 LEAD Routine 05/22/2015 12:20 PM EDT Preop testing Generalized OA XR FOOT RIGHT AP LATERAL AND OBLIQUE Routine 01/09/2015 12:46 PM EDT Congenital metatarsus primus varus 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 CYTOLOGY REPORT Routine 11/30/2014 5:15 AM EDT XR FOOT RIGHT AP LATERAL AND OBLIQUE Routine 10/03/2014 1:22 PM EDT Hallux valgus (acquired) XR FOOT RIGHT AP LATERAL AND OBLIQUE Routine 09/08/2014 12:30 PM EST Hallux valgus (acquired) XR FOOT RIGHT AP LATERAL AND OBLIQUE Routine 08/18/2014 12:47 PM EST Hallux valgus (acquired) XR FOOT RIGHT AP LATERAL AND OBLIQUE Routine 08/02/2014 4:33 PM EST Hallux valgus (acquired) SCANNED ANESTHESIA FORMS 015 3:59 PM EST BUNIONECTOMY TAILOR 07/25/2014 2:10 PM EST Hallux valgus (acquired) Other hammer toe (acquired) Congenital metatarsus primus varus Special Needs BETO CPT; 52139/51193/78115 HAMMER TOE REPAIR 07/25/2014 2:10 PM EST Hallux valgus (acquired) Other hammer toe (acquired) Congenital metatarsus primus varus Special Needs [facility]O CPT; 18526/50254/59703 BUNIONECTOMY TIGHT ROPE PROCEDURE 07/25/2014 2:10 PM EST Hallux valgus (acquired) Other hammer toe (acquired) Congenital metatarsus primus varus Special Needs BETO CPT; 08971/84462/36141 XR FOOT RIGHT AP LATERAL AND OBLIQUE Routine 03/15/2014 5:55 PM EDT Hallux valgus, acquired, right DX BONE DENSITY AXIAL SKELETON Routine 11/16/2013 1:15 PM EDT Post-menopausal 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 CYTOLOGY REPORT Routine 11/16/2013 4:15 AM EDT 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 CYTOLOGY REPORT Routine 10/20/2012 12:00 AM EDT SCANNED PRE/POST PROCEDURES 07/2011 9:32 PM EST SCANNED ANESTHESIA FORMS 012 9:32 PM EST SCANNED OR REPORT 08/26/2011 11:41 AM EST PATHOLOGY TISSUE REPORT Routine 08/26/19 12 8:45 AM EST EXCISION MASS FOOT/TOE/GANGLION 08/26/2011 8:06 AM EST HALLUX VALGUS HAMMERTOES LEFT Special Needs PHONE [facility] CPT 53686 [id number] HAMMER TOE REPAIR 08/26/2011 8:06 AM EST HALLUX ELIOTGUS SIA LEFT Special Needs PHONE [facility] [id number] BUNIONECTOMY WITH KYLAH OSTEOTOMY 08/26/2011 8:06 AM EST [place] NNAMDI STOVALL LEFT Special Needs PHONE [facility] [id number] EK EKG 12 LEAD Routine 08/23/2011 11:19 AM EST Results * ESOPHAGOGASTRODUODENOSCOPY (EGD) (01/08/2023 8:07 AM EDT) Anatomical Region Laterality Modality Endoscopy Narrative 01/08/2023 7:46 AM EDT Table formatting from the original result was not included. Findings The esophagus appeared normal. Performed multiple forceps biopsies to rule out Garcia's esophagus in the GE junction Small sliding hiatal hernia (type I hiatal hernia) Mild, localized erythematous mucosa in the antrum; performed cold forceps biopsy to rule out H. pylori Fundic gland polyp in the stomach The duodenum appeared normal. Recommendation Await pathology results Okay to resume all home medications. Continue current acid suppression medication 30 minutes before a meal. 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 Preprocedure A history and physical has been performed, and patient medication allergies have been reviewed. The patient's tolerance of previous anesthesia has been reviewed. The risks and benefits of the procedure and the sedation options and risks were discussed with the patient. All questions were answered and informed consent obtained. ASA 3 - Patient with severe systemic disease Details of the Procedure The patient underwent monitored anesthesia care, which was administered by an anesthesia professional. The patient's blood pressure, heart rate, level of consciousness, oxygen, respirations, ECG and ETCO2 were monitored throughout the procedure. The scope was introduced through the mouth and advanced to the second part of the duodenum. Retroflexion was performed in the cardia. The patient experienced no blood loss. The procedure was not difficult. The patient tolerated the procedure well. There were no apparent adverse events. Patient provided education and educated on specific discharge instructions. Patient educated on medications given during the procedure and new medications for discharge. Patient verbalizes understanding of discharge education. Patient stable and awaiting transport for discharge. Events Procedure Events Event Event Time ENDO SCOPE IN TIME 01/08/2023 7:38 AM ENDO SCOPE OUT TIME 01/08/2023 7:43 AM Specimens ID Type Source Tests Collected by Time 1 : Tissue Gastroesophageal Junction TSG PATHOLOGY ORDER Vincenzo Elmore MD 01/08/2023 0743 2 : Tissue Gastric TSG PATHOLOGY ORDER Vincenzo Elmore MD 01/08/2023 0743 Hilda Mccainridge COMPUTER GAME DESIGNER ENDOSCOPY PROCEDURE ORDERA BLES Final Result * COLONOSCOPY (01/08/2023 8:07 AM EDT) Anatomical Region Laterality Modality Endoscopy Narrative 01/08/2023 8:09 AM EDT Table formatting from the original result was not included. Findings Internal medium hemorrhoids Diverticula of moderate severity in the sigmoid colon One polyp measuring smaller than 5 mm in the transverse colon; no bleeding was identified; performed complete removal by cold forceps biopsy One polyp measuring smaller than 5 mm in the ascending colon; no bleeding was identified; performed complete removal by cold forceps biopsy Recommendation Await pathology results Repeat colonoscopy in 5 years Repeat colonoscopy in 5 years should patient wish to continue surveillance at that time. Indication Family hx of colon cancer, Polyp of colon, unspecified part of colon, unspecified type Staff Staff Role Brittani Garcia RN Nurse James Sawyer, NAVAL ARCHITECT SPECIALIST NAVAL ARCHITECT SPECIALIST Vincenzo Elmore MD Performing Provider Medications See Anesthesia Record. Preprocedure A history and physical has been performed, and patient medication allergies have been reviewed. The patient's tolerance of previous anesthesia has been reviewed. The risks and benefits of the procedure and the sedation options and risks were discussed with the patient. All questions were answered and informed consent obtained. ASA 3 - Patient with severe systemic disease Details of the Procedure The patient underwent monitored anesthesia care, which was administered by an anesthesia professional. The patient's blood pressure, heart rate, level of consciousness, oxygen, respirations, ECG and ETCO2 were monitored throughout the procedure. A digital rectal exam was performed. The scope was introduced through the anus and advanced to the cecum. Retroflexion was performed in the rectum. Bowel prep was adequate. The patient experienced no blood loss. The procedure was not difficult. The patient tolerated the procedure well. There were no apparent adverse events. Patient provided education and educated on specific discharge instructions. Patient educated on medications given during the procedure and new medications for discharge. Patient verbalizes understanding of discharge education. Patient stable and awaiting transport for discharge. Events Procedure Events Event Event Time ENDO SCOPE IN TIME 01/08/2023 7:38 AM ENDO SCOPE OUT TIME 01/08/2023 7:43 AM ENDO SCOPE IN TIME 01/08/2023 7:48 AM ENDO CECUM REACHED 01/08/2023 7:57 AM ENDO SCOPE WITHDRAW BEGIN 01/08/2023 7:57 AM TSG LUME TI REACHED 01/08/2023 7:58 AM ENDO SCOPE OUT TIME 01/08/2023 8:07 AM Specimens ID Type Source Tests Collected by Time 1 : Tissue Gastroesophageal Junction TSG PATHOLOGY ORDER Vincenzo Elmore MD 01/08/2023 0743 2 : Tissue Gastric TSG PATHOLOGY ORDER Vincenzo Elmore MD 01/08/2023 0743 3 : polyp Tissue Large Intestine, Transverse Colon TSG PATHOLOGY ORDER Vincenzo Elmore MD 01/08/2023 0807 4 : polyp Tissue Large Intestine, Right/Ascending Colon TSG PATHOLOGY ORDER Vincenzo Elmore MD 01/08/2023 0807 Hilda Parish COMPUTER GAME DESIGNER ENDOSCOPY PROCEDURE ORDERA BLES Final Result * TSG PATHOLOGY ORDER (01/08/2023 7:43 AM EDT) Tissue CARDIOESOPHAGEAL JUNCTION STRUCTURE / Unknown 01/08/2023 7:43 AM EDT Tissue specimen (specimen) STOMACH STRUCTURE / Unknown 01/08/2023 7:43 AM EDT Tissue specimen (specimen) TRANSVERSE COLON STRUCTURE / Unknown 01/08/2023 8:07 AM EDT Tissue specimen (specimen) ASCENDING COLON STRUCTURE / Unknown 01/08/2023 8:07 AM EDT Impressions [facility] - 01/08/2023 7:00 PM EDT A. Esophagus, EG Junction: Biopsy MILD INFLAMMATION AND REACTIVE CHANGES CONSISTENT WITH GERD NEGATIVE FOR INTESTINAL METAPLASIA, DYSPLASIA, OR MALIGNANCY The biopsy shows fragments of squamous mucosa with elongation and congestion of the papillae consistent with reflux esophagitis. No intraepithelial eosinophils are seen. There is no evidence of goblet cell metaplasia. There is no evidence of dysplasia, or malignancy. B. Stomach, gastric: Biopsy BENIGN GASTRIC MUCOSA NEGATIVE FOR HELICOBACTER PYLORI TYPE GASTRITIS NEGATIVE FOR INTESTINAL METAPLASIA, DYSPLASIA, OR MALIGNANCY Sections show benign gastric mucosa with no significant pathologic abnormality. There is no evidence of Helicobacter pylori type microorganisms. There is no evidence of intestinal metaplasia, dysplasia, or malignancy. C. Colon, Transverse: Polyp TUBULAR ADENOMA(S)--2 FRAGMENTS Sections show tubular adenoma(s). There is no evidence of high-grade dysplasia or malignancy. D. Colon, Ascending: Polyp SESSILE SERRATED ADENOMA(S)--MULTIPLE FRAGMENTS Sections show fragments of sessile serrated adenoma(s). There is no evidence of malignancy. Narrative [facility] - 01/08/2023 7:00 PM EDT Pathologist: Alber Handley MD Vincenzo Elmore MD [employer] - ORDERABLES Final Result Performing Organization Address [facility] Co de Phone Number [facility] [place] [address] * INTRAOP AIRWAY PLACEMENT (08/14/2020 10:15 AM EST) Narrative [facility] - 08/14/2020 10:15 AM EST Jaquan Wild, NAVAL ARCHITECT SPECIALIST 08/14/2020 10:15 AM Intraop Airway Placement: Airway type: Nasal cannula salter Obey Alas MD AL ANESTHESIA Final Resul t Performing Organization Address [facility] Co de Phone Number [facility] [address] [place] [address] * CORONAVIRUS 2019 (08/10/2020 9:44 AM EST) Only the most recent of2 resultswithin the time period is included. CORONAVIRUS [id number] Not Detected Not Detected 08/10/2020 8:16 PM EST [facility] Comment:Caution should be ex ercised when interpreting a result of 'Not Detected'. A result of 'Not Detected' does not rule out COVID-19 and cannot be used as sole basis for treatment or patient management decisions. If COVID-19 is still suspected following a 'Not Detected' result, re-testing should be considered. Swab BOTH ANTERIOR NARES / Unknown 08/10/2020 9:44 AM EST 08/10/2020 9:44 AM EST Narrative [facility]REFERR[facility] - 08/10/2020 8:16 PM EST This test is a nucleic acid amplification test intended for the qualitative detection of nucleic acid from the SARS-CoV-2 in upper respiratory samples collected from individuals suspected of COVID-19. Test is performed on the [employer] platform under the FDA's Emergency Use Authorization (EUA). Hologic Provider Fact Sheet: https://www.fda.gov/media/372587/download Hologic Patient Fact Sheet: https://www.fda.gov/media/782349/download us Arie Mcnair MD MICROBIOLOGY - GENERAL ORDER KARIME Final Result Performing Organization Address [facility] Co de Phone Number [facility] [address] [facility], [place] [address] * SCANNED RADIOLOGY REPORT (08/07/2020 2:58 PM EST) Anatomical Region Laterality Modality Other 08/07/2020 2:58 PM EST us Unknown Unknown IMG DIAGNOSTIC IMAGING ORDERABLE S Final Result * INTRAOP AIRWAY PLACEMENT (07/31/2020 10:32 AM EST) Narrative [facility] - 07/31/2020 10:32 AM EST Anuja West, NAVAL ARCHITECT SPECIALIST 07/31/2020 10:32 AM Intraop Airway Placement: Airway type: Nasal cannula salter us Mitch Allan IV, MD AL ANESTHESIA Final Re sult Performing Organization Address [facility] Co de Phone Number [facility] [address] [place] [address] * CT US VISCERAL VASCULAR COMPLETE (07/11/2020 10:27 AM EST) Anatomical Region Laterality Modality Abdomen, Vascular Vascular Imagi ng 07/11/2020 9:50 AM EST Impressions 07/13/2020 1:24 PM EST CONCLUSIONS No evidence of AAA. Elevated velocities is seen in the Celiac artery. No evidence of a flow significant lesion in the SMA. No evidence of a flow significant lesion is seen in the right renal artery. The left renal artery was not seen. Bilateral diameter kidney measurements were obtained. Narrative Procedure Note Alex Luong MD - 07/13/2020 IMPRESSION CONCLUSIONS No evidence of AAA. Elevated velocities is seen in the Celiac artery. No evidence of a flow significant lesion in the SMA. No evidence of a flow significant lesion is seen in the right renalartery. The left renal artery was not seen. Bilateral diameter kidney measurements were obtained. us Alex Luong MD IMG VASCULAR ORDERABLES Final R esult * POCT EKG (07/06/2020 3:52 PM EST) 07/06/2020 3:52 PM EST us Alex Luong MD POINT OF CARE CARDIOLOGY Final Result SEP OFFICE * CT LOWER EXTREMITY LEFT WO CONTRAST (03/15/2020 10:45 AM EDT) Only the most recent of2 resultswithin the time period is included. Anatomical Region Laterality Modality Leg Computed Tomogra phy 03/15/2020 10:4 5 AM EDT Impressions 03/15/2020 11:22 AM EDT Unchanged, uncomplicated appearance of the left total knee prosthesis. No acute findings. - Narrative 03/15/2020 11:[address] LOWER EXTREMITY LEFT WO CONTRAST, 03/15/2020 10:45 AM CLINICAL HISTORY: M25.562-Pain in left [id number]-YPU-47-CM COMPARISON: Radiographs 02/02/2020, CT 03/12/2020 PROCEDURE COMMENTS: Multidetector CT with multiplanar reconstructions per ordered protocol. Automated exposure control for dose reduction was used. CTDIvol: 56.3 mGy. DLP: 1199 mGy-cm. FINDINGS: BONES/JOINTS: Changes of three-component left total knee arthroplasty are present. The prosthesis appears intact, normally positioned, and unchanged from the prior CT from 2016. No abnormal periprosthetic lucency or fracture is identified. No sizable joint effusion noted. SOFT TISSUES: The extensor mechanism is overall intact. No soft tissue fluid collections or masses are identified. Procedure Note Stefan Dial MD - 03/15/2020 CT LOWER EXTREMITY LEFT WO CONTRAST, 03/15/2020 10:45 AM CLINICAL HISTORY: M25.562-Pain in left [id number]-JFQ-10-CM COMPARISON: Radiographs 02/02/2020, CT 03/12/2020 PROCEDURE COMMENTS: Multidetector CT with multiplanar reconstructionsper ordered protocol. Automated exposure control for dose reduction wasused. CTDIvol: 56.3 mGy. DLP: 1199 mGy-cm. FINDINGS: BONES/JOINTS: Changes of three-component left total knee arthroplastyare present. The prosthesis appears intact, normally positioned, and unchangedfrom the prior CT from 2016. No abnormal periprosthetic lucency or fractureis identified. No sizable joint effusion noted. SOFT TISSUES: The extensor mechanism is overall intact. No soft tissuefluid collections or masses are identified. IMPRESSION: Unchanged, uncomplicated appearance of the left total knee prosthesis. Noacute findings. - Mahesh Bishop MD IMG CT ORDERABLES Final Result * CT LOWER EXTREMITY RIGHT WO CONTRAST (03/15/2020 10:45 AM EDT) Only the most recent of2 resultswithin the time period is included. Anatomical Region Laterality Modality Leg Computed Tomogra phy 03/15/2020 10:4 5 AM EDT Impressions 03/15/2020 11:21 AM EDT Unchanged, uncomplicated appearance of the right total knee prosthesis. No acute findings. - Narrative 03/15/2020 11:[address] LOWER EXTREMITY RIGHT WO CONTRAST, 03/15/2020 10:45 AM CLINICAL HISTORY: M25.561-Pain in right mtml-HFI-54-CM COMPARISON: Radiographs 02/02/2020, CT 03/12/2020 PROCEDURE COMMENTS: Multidetector CT with multiplanar reconstructions per ordered protocol. Automated exposure control for dose reduction was used. CTDIvol: 56.3 mGy. DLP: 1149 mGy-cm. FINDINGS: BONES/JOINTS: Changes of three-component right total knee arthroplasty are present. The prosthesis appears intact, normally positioned, and unchanged from the prior CT from 2016. No abnormal periprosthetic lucency or fracture is identified. No sizable joint effusion noted. SOFT TISSUES: The extensor mechanism is overall intact. No soft tissue fluid collections or masses are identified. Procedure Note Stefan Dial MD - 03/15/2020 CT LOWER EXTREMITY RIGHT WO CONTRAST, 03/15/2020 10:45 AM CLINICAL HISTORY: M25.561-Pain in right joue-TCN-25-CM COMPARISON: Radiographs 02/02/2020, CT 03/12/2020 PROCEDURE COMMENTS: Multidetector CT with multiplanar reconstructionsper ordered protocol. Automated exposure control for dose reduction wasused. CTDIvol: 56.3 mGy. DLP: 1149 mGy-cm. FINDINGS: BONES/JOINTS: Changes of three-component right total knee arthroplastyare present. The prosthesis appears intact, normally positioned, and unchangedfrom the prior CT from 2016. No abnormal periprosthetic lucency or fractureis identified. No sizable joint effusion noted. SOFT TISSUES: The extensor mechanism is overall intact. No soft tissuefluid collections or masses are identified. IMPRESSION: Unchanged, uncomplicated appearance of the right total knee prosthesis. Noacute findings. - Mahesh Bishop MD IMG CT ORDERABLES Final Result * SEDIMENTATION RATE AUTOMATED (03/15/2020 10:02 AM EDT) Only the most recent of2 resultswithin the time period is included. [facility] Sed Rate 11 0 - 30 mm/hr 03/15/2020 4:48 PM EDT [facility] Blood Venipuncture / Unknown 03/15/2020 10:02 AM EDT 03/15/2020 10:02 AM EDT Mahesh Bishop MD HEMATOLOGY ORDERABLES Fi nal Result [facility] [address] [place] [address] , [place] [address] * CBC WITH DIFF (03/15/2020 10:02 AM EDT) Only the most recent of4 resultswithin the time period is included. Pathologist [facility] WBC 6.0 3.7 - 10.3 x10(3)/mcL 03/15/2020 [...] 3:49 PM EDT [facility] Comment:Neutrophils equals s egs plus bands Imm Gran% 0.3 % 03/15/2020 3:49 PM EDT [facility] Comment:Automated count of m etamyelocytes, myelocytes and promyelocytes. Lymph Percent 21.5 % 03/15/2020 3:49 PM EDT [facility] [place]vier Percent 9.9 % 03/15/2020 3:49 PM EDT [facility] Eos Percent 1.7 % 03/15/2020 3:49 PM EDT [facility] Baso Percent 0.5 % 03/15/2020 3:49 PM EDT [facility] Neut # 3.9 1.6 - 6.1 x10(3)/mcL 03/15/2020 3:49 PM EDT [facility] Comment:Neutrophils equals s egs plus bands IMMGRAN# 0.0 0.0 - 0.1 x10(3)/mcL 03/15/2020 3:49 PM EDT [facility], [facility] Comment:Automated count of m etamyelocytes, myelocytes and promyelocytes. An absolute IG <0.1 is reported as 0.0. Lymph # 1.3 1.2 - 3.9 x10(3)/mcL 03/15/2020 3:49 PM EDT [facility], [facility] Sevier # 0.6 0.3 - 0.9 x10(3)/mcL 03/15/2020 3:49 PM EDT [facility], [facility] Eos# 0.1 0.0 - 0.5 x10(3)/mcL 03/15/2020 3:49 PM EDT [facility], [facility] Baso # 0.0 0.0 - 0.1 x10(3)/mcL 03/15/2020 3:49 PM EDT [facility] [employer], [facility] Blood Venipuncture / Unknown 03/15/2020 10:02 AM EDT 03/15/2020 10:02 AM EDT us Mahesh Bishop MD HEMATOLOGY ORDERABLES Fi nal Result Performing Organization Address [facility] Co de Phone Number [facility] [employer] [address] , [place] [address] * C-REACTIVE PROTEIN (03/15/2020 10:02 AM EDT) Only the most recent of2 resultswithin the time period is included. [facility] CRP 1.76 <=5.00 mg/L 03/15/2020 4:32 PM EDT [facility] [employer], [facility] Blood Venipuncture / Unknown 03/15/2020 10:02 AM EDT 03/15/2020 10:02 AM EDT Mahesh Bishop MD CHEMISTRY ORDERABLES Fin al Result Performing Organization Address [facility] Co de Phone Number [facility] [employer] [address] [address] * DX BONE DENSITY AXIAL SKELETON (01/07/2017 3:30 PM EDT) Only the most recent of2 resultswithin the time period is included. Anatomical Region Laterality Modality Dexa Scan 01/07/2017 Narrative 01/07/2017 4:29 PM EDT Indication: The patient is presently being monitored while on treatment and requires a bone density assessment. Study was performed on byyd 3.2. Bone Density: Region BMD T-score Z-score AP Spine (L1-L4) 0.938 -1.0 1.1 Femoral Neck (Left) 0.735 -1.0 0.8 Total Hip (Left) 0.900 -0.3 1.2 World Health Organization criteria for BMD interpretation classify patients as: Normal (T-score at or above -1.0), Low Bone Density (T-score between -1.0 and -2.5), or Osteoporotic (T-score at or below -2.5). T Scores are reported in Postmenopausal women and in men age 50 and older. Z-scores are reported in females prior to menopause and in males younger than age 50. 10-year Fracture Risk: FRAX not reported because: All T-scores at or above -1.0 Treated for osteoporosis Previous Exams: Region Date Age BMD T-score BMD Change AP Spine(L1-L4) 01/07/2017 71 0.938 -1.0 2.9% 11/16/2013 68 0.911 -1.2 Total Hip(Left) 01/07/2017 71 0.900 -0.3 -10.6%* 11/16/2013 68 1.008 0.5 *Denotes significance at 95% confidence level, site specific LSC for AP Spine = 0.032 g/cm2, site specific LSC for Total Hip = 0.025 g/cm2 BMD is shown in g/cm2 and BMD Change indicates change vs previous BMD Clinical Information Provided by Patient: Is being treated for osteoporosis Has taken a prescription medication that prevents/treats osteoporosis in the last year. Has used the following medications: Calcium, Vitamin D, Thyroid medication Has the following medical conditions: Vitamin D Insufficiency Patient maximum height was 62 Menopause Age: 53 Patient is postmenopausal Interpretation: The patient's previous bone mineral density was in the low bone density range, on today's exam the bone mineral density is in the normal bone density range. A minimum of two years may be required between bone density studies due to inherent testing precision limitations. Intervals between BMD testing should be determined according to each patient's clinical status: typically one year after initiation or change of therapy is appropriate, with longer intervals once therapeutic effect is established. The left hip bone mineral density is significantly decreased since the last exam. The spine bone mineral density is not significantly changed since the last exam. The spine portion of the study is limited by increased visual hypertrophic changes. Reported by: Hanh Mcconnell PA-C,CCD on 01/07/2017 3:36:00 PM. Iza Ortega MD IMG DEXA ORDERABLES Final R esult * SCANNED EKG (11/15/2016 6:09 AM EDT) Only the most recent of2 resultswithin the time period is included. Anatomical Region Laterality Modality Other 11/15/2016 6:09 AM EDT us Unknown Unknown IMG ECG ORDERABLES Final Result * CT ANGIOGRAM CHEST W CONTRAST (11/05/2016 2:40 AM EDT) Anatomical Region Laterality Modality Chest Computed Tomogra phy 11/05/2016 2:40 AM EDT Impressions 11/05/2016 2:56 AM EDT 1. The pulmonary arteries contain no filling defects to indicate an acute or chronic pulmonary embolism. 2. Incidental findings as described Narrative 11/05/2016 2:56 AM EDT CLINICAL HISTORY: -Chest pain, acute, PE suspected, low pretest prob -SHORTNESS OF BREATH. COMPARISON: X-ray from yesterday. TECHNIQUE: CT ANGIOGRAM CHEST W CONTRAST on 11/05/2016 2:40 AM. 50 mL of intravenous Isovue-370 was administered. For optimization of anatomic evaluation, advanced 3D off-line post-processing was performed at an independent workstation by the physician. This included multi-planar reconstruction and maximum intensity projections FINDINGS: The pulmonary arteries contain no filling defects to indicate an acute or chronic pulmonary embolism. The lungs are clear. The tracheobronchial tree is patent. There is no pneumothorax or pleural effusion. The heart size and pulmonary vascularity are normal and there is no pericardial effusion. Coronary artery calcifications are noted. The aorta and pulmonary arteries are normal. All lymph nodes are less than 1 cm in the short axis. The included thyroid gland and esophagus are normal and there is no hiatal hernia. The upper abdomen and osseous structures are unremarkable. Procedure Note Jaquan Ness MD - 11/05/2016 CLINICAL HISTORY: -Chest pain, acute, PE suspected, low pretest prob -SHORTNESS OF BREATH. COMPARISON: X-ray from yesterday. TECHNIQUE: CT ANGIOGRAM CHEST W CONTRAST on 11/05/2016 2:40 AM. 50 mL of intravenous Isovue-370 was administered. For optimization of anatomic evaluation, advanced 3D off-line post-processing was performed at anindependent workstation by the physician. This included multi-planar reconstructionand maximum intensity projections FINDINGS: The pulmonary arteries contain no filling defects to indicate anacute or chronic pulmonary embolism. The lungs are clear. The tracheobronchial tree is patent. There is no pneumothorax or pleural effusion. The heart size and pulmonary vascularity are normal and there is nopericardial effusion. Coronary artery calcifications are noted. The aorta andpulmonary arteries are normal. All lymph nodes are less than 1 cm in the shortaxis. The included thyroid gland and esophagus are normal and there is nohiatal hernia. The upper abdomen and osseous structures are unremarkable. IMPRESSION: 1. The pulmonary arteries contain no filling defects to indicate an acuteor chronic pulmonary embolism. 2. Incidental findings as described us Pablo Smith MD IMG CT ORDERABLES Final Res ult * TROPONIN-T (11/05/2016 2:00 AM EDT) Only the most recent of3 resultswithin the time period is included. [facility] Troponin-T <0.01 <=0.00 ng/mL [facility] Comment: Values > or = 0.01 ng/mL have been shown to have prognostic value. Blood specimen (specimen) 11/05/2016 2:00 AM EDT 11/05/2016 2:08 AM EDT Pablo Smith MD CHEMISTRY ORDERABLES Final Result Performing Organization Address City/[facility] Co de Phone Number [facility] [address] [place] [address] * (ABNORMAL) D-DIMER (11/04/2016 11:57 PM EDT) [facility] D-Dimer 318(H) <=230 ng/mL D-DU [facility] Comment: This test has been clinically validated by the paint formulator and approved by the FDA for exclusion of pulmonary embolism (PE) or deep vein thrombosis (DVT) in patients with a low clinical risk assessment. The cutoff for exclusion of PE and DVT is < 230 ng/mL D-Dimer Units. Increased levels of D-dimer are associated with PE, DVT, disseminated intravascular coagulation, malignancies, inflammation, sepsis, surgery, trauma, , and advanced patient age. [SAURAV 2006 11:295(2): 199-207] Blood specimen (specimen) UPPER LIMB STRUCTURE / Unknown 11/04/2016 11:57 PM EDT 11/05/2016 12:02 AM EDT Pablo Smith MD HEMATOLOGY ORDERABLES Final Result Performing Organization Address City/[facility]/ZIP Co de Phone Number [facility] [address] [place] [address] * DIFFERENTIAL (11/04/2016 11:50 PM EDT) Only the most recent of3 resultswithin the time period is included. Pathologist [facility] Neut Percent 63.1 % [facility] Lymph Percent 23.2 % [facility] [place] Percent 11.6 % [facility] Eos Percent 1.3 % [facility] Baso Percent 0.8 % [facility] Neut# 5.5 1.8 - 7.7 x10(3)/[facility] Lymph# 2.0 0.6 - 4.8 x10(3)/mcL [facility] Sevier# 1.0 0.0 - 1.3 x10(3)/[facility] Eos# 0.1 0.0 - 0.5 x10(3)/[facility] Baso# 0.1 0.0 - 0.2 x10(3)/[facility] Blood specimen (specimen) 11/04/2016 11:50 PM EDT 11/05/2016 12:[address] [facility] HEMATOLOGY ORDERABL ES Final Result Performing Organization Address City/State/[facility] [place] [address] * BASIC METABOLIC PANEL (11/04/2016 11:50 PM EDT) Only the most recent of4 resultswithin the time period is included. Sodium 139 136 - 145 mmol/L [facility] Potassium 4.0 3.5 - 5.0 mmol/L [facility] Chloride 100 98 - 107 mmol/L [facility] Total CO2 25 22 - 29 mmol/L [facility] Anion Gap 14 7 - 16 mmol/L [facility] Calcium 9.6 8.8 - 10.2 mg/dL [facility] Glucose Lvl 88 82 - 100 mg/dL [facility] BUN 17 8 - 23 mg/dL [facility] Creatinine 0.87 0.51 - 1.30 mg/dL [facility] GFR Afr Am >60 [facility] GFR Non Afr Am >60 [facility] Blood specimen (specimen) UPPER LIMB STRUCTURE / Unknown 11/04/2016 11:50 PM EDT 11/05/2016 12:02 AM EDT us Pablo Smith MD CHEMISTRY ORDERABLES Edited Result - Final [facility] [address] [address] * XR CHEST PA AND LATERAL (11/04/2016 10:51 PM EDT) Anatomical Region Laterality Modality Chest Radiographic Lelia ging 11/04/2016 10:5 1 PM EDT Impressions 11/04/2016 11:07 PM EDT No acute findings. Narrative 11/04/2016 11:07 PM EDT CLINICAL HISTORY: Acute shortness of breath. COMPARISON: 05/31/2015. TECHNIQUE: XR CHEST PA AND LATERAL on 11/04/2016 10:51 PM. FINDINGS: The lungs are clear. There is no pneumothorax or pleural effusion. The heart size and pulmonary vascularity are normal. The upper abdomen and osseous structures are unremarkable. Procedure Note Jaquan Ness MD - 11/04/2016 CLINICAL HISTORY: Acute shortness of breath. COMPARISON: 05/31/2015. TECHNIQUE: XR CHEST PA AND LATERAL on 11/04/2016 10:51 PM. FINDINGS: The lungs are clear. There is no pneumothorax or pleuraleffusion. The heart size and pulmonary vascularity are normal. The upper abdomen andosseous structures are unremarkable. IMPRESSION: No acute findings. us Pablo Smith MD IMG DIAGNOSTIC IMAGING ORDE RABLES Final Result * EK EKG 12 LEAD (11/04/2016 10:36 PM EDT) Only the most recent of4 resultswithin the time period is included. Anatomical Region Laterality Modality Electrocardiogra phy 11/04/2016 10:4 2 PM EDT Impressions 11/05/2016 10:16 PM EDT Stationary ECG Study [facility] Interpretive Statements SINUS RHYTHM Nonspecific STT changes ,improved from prior tracing Electronically Signed On 11-05-2016 22:16:39 EDT by Kirt Low MD Narrative Procedure Note Kirt Low MD - 11/05/2016 IMPRESSION Stationary ECG Study [facility] Interpretive Statements SINUS RHYTHM Nonspecific STT changes ,improved from prior tracing Electronically Signed On 11-05-2016 22:16:39 EDT by Kirt Low MD us Pablo Smith MD IMG ECG ORDERABLES Final Re sult * US PELVIS AND TRANSVAGINAL NON OB COMPLETE (12/28/2015 11:03 AM EDT) Anatomical Region Laterality Modality Pelvis Ultrasound 12/28/2015 11:0 3 AM EDT Impressions 12/28/2015 12:23 PM EDT Impression: 14 mm hypoechoic nodule right uterine fundus, likely a submucosal fibroid. Nonvisualized left ovary. Otherwise, unremarkable pelvic ultrasound Narrative 12/28/2015 12:23 PM EDT US PELVIS AND TRANSVAGINAL NON OB COMPLETE 12/28/2015 12:21 PM History: R10.2-Pelvic and perineal rnai-RGF-01-CM Comparison: None Transabdominal and transvaginal imaging Findings: Uterus measures 6 x 5.5 x 4 cm with an overall endometrial thickness of 2 mm. In the right fundus, likely in a submucosal location is a 14 x 8 x 10 mm well-circumscribed hypoechoic nodule that probably represents a small submucosal fibroid. The right ovary is normal measuring 19 x 11 x 17 mm. Left ovary is not seen but no suspicious left adnexal mass noted. Physiologic free fluid in the pelvis. Procedure Note Gino Roldan MD - 12/28/2015 US PELVIS AND TRANSVAGINAL NON OB COMPLETE 12/28/2015 12:21 PM History: R10.2-Pelvic and perineal dkxd-MOS-10-CM Comparison: None Transabdominal and transvaginal imaging Findings: Uterus measures 6 x 5.5 x 4 cm with an overall endometrialthickness of 2 mm. In the right fundus, likely in a submucosal location is a 14 x 8x 10 mm well-circumscribed hypoechoic nodule that probably represents a small submucosal fibroid. The right ovary is normal measuring 19 x 11 x 17 mm.Left ovary is not seen but no suspicious left adnexal mass noted. Physiologicfree fluid in the pelvis. Impression: 14 mm hypoechoic nodule right uterine fundus, likely asubmucosal fibroid. Nonvisualized left ovary. Otherwise, unremarkable pelvicultrasound us Maryjane Duron MD IMG US ORDERABLES Final R esult * 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 CYTOLOGY REPORT (12/27/2015 8:14 AM EDT) Only the most recent of4 resultswithin the time period is included. Nonprofit Financial Controller Cytology Report PATIENT NAME:SHIRIN DOVE Nonprofit Financial Controller Cytology Report Accession Number Collected Date/Time Received Date/Time [id number] 12/27/15 08:14 EDT 12/27/15 15:44 EDT GY Specimen Source Specimen Vag/Cerv/Endocx?: Cerv/Endocerv Statement of Adequacy Satisfactory for Evaluation. Diagnosis NEGATIVE FOR INTRAEPITHELIAL LESION OR MALIGNANCY Atrophic change Present. Comment The Pap Smear is a screening test that aids in the detection of cervical cancer and cancer precursors. Both false positive and false negative results can occur. The test should be used at regular intervals, and positive results should be confirmed before definitive therapy. Processed using the ThinPrep Occupational Health Specialist automated cytology screening device (Favor). Research Chemical Engineer: LUCY 12/28/2015 Completed by: Adali Allison (Electronically signed by) 12/28/2015 [facility] 12/27/2015 8:14 AM EDT us Maryjane Duron MD PATHOLOGY ORDERABLES Daina l Result [facility] [address] [place] [address] * SCANNED RHYTHM STRIPS (06/05/2015 11:02 AM EST) Anatomical Region Laterality Modality Other 06/05/2015 11:0 2 AM EST us Unknown Unknown IMG ECG ORDERABLES Final Result * VA US LOWER EXTREMITY VENOUS RIGHT (06/03/2015 3:29 PM EST) Anatomical Region Laterality Modality Vascular, Thigh, Leg Vascular Im aging 06/03/2015 3:18 PM EST Impressions 06/04/2015 7:22 AM EST CONCLUSIONS No evidence of deep vein thrombosis identified in the right lower extremity. No evidence of superficial vein thrombosis identified in the right lower extremity. No evidence of thrombosis is noted in the contralateral left common femoral vein. Holger Fuller MD Narrative Procedure Note Holger Fuller MD - 06/04/2015 IMPRESSION CONCLUSIONS No evidence of deep vein thrombosis identified in the right lowerextremity. No evidence of superficial vein thrombosis identified in the right lowerextremity. No evidence of thrombosis is noted in the contralateral left commonfemoral vein. Holger Fuller MD us May Ray MD IMG VASCULAR ORDERABLES Final Re sult * (ABNORMAL) HEMOGLOBIN AND HEMATOCRIT (06/01/2015 5:27 AM EST) Only the most recent of3 resultswithin the time period is included. Hgb 10.7(L) 12.0 - 15.6 gm/dL [facility] Hct 31.1(L) 35.7 - 45.9 % [facility] Blood specimen (specimen) 06/01/2015 5:27 AM EST 06/01/2015 5:55 AM EST Narrative [facility] - 06/01/2015 6:09 AM EST Call MD if Hct is less than 28 us Mahesh Bishop MD HEMATOLOGY ORDERABLES Fi nal Result Performing Organization Address City/State/[facility] [place] [address] * NM LUNG SCAN PERFUSION ONLY (05/31/2015 6:59 PM EST) Anatomical Region Laterality Modality Chest Nuclear Medicine 05/31/2015 6:59 PM EST Impressions 05/31/2015 7:09 PM EST IMPRESSION: No scintigraphic evidence of pulmonary embolism. Code jot stat Narrative 05/31/2015 7:09 PM EST NM LUNG SCAN PERFUSION ONLY 05/31/2015 6:59 PM Clinical: -R/O PE shortness of breath after recent knee replacement. 5.8 mCi technetium MAA IV. Xenon aerosol not available at time of exam. Comparison made to chest radiograph from May 31, 2015. Findings: The perfusion scan is normal. Procedure Note Alexy Huerta MD - 05/31/2015 NM LUNG SCAN PERFUSION ONLY 05/31/2015 6:59 PM Clinical: -R/O PE shortness of breath after recent knee replacement. 5.8 mCi technetium MAA IV. Xenon aerosol not available at time of exam. Comparison made to chest radiograph from May 31, 2015. Findings: The perfusion scan is normal. IMPRESSION: No scintigraphic evidence of pulmonary embolism. Code jot stat Dharmesh Ayala MD IMG NM ORDERABLES Final Resul t * URINE CULTURE (05/31/2015 12:32 PM EST) Final No growth at 2 days. [facility] Urine specimen (specimen) 05/31/2015 12:32 PM EST 05/31/2015 2:10 PM EST Octavia Ramos MD MICROBIOLOGY - GENERAL ORDER [place] [address] * (ABNORMAL) URINALYSIS (05/31/2015 12:32 PM EST) Only the most recent of2 resultswithin the time period is included. UA Color Yellow [facility] UA Appear Hazy(A) Clear [facility] UA Glucose Negative Negative [facility] UA Ketones Trace (5 mg/dl)(A) Negative [facility] UA Blood Negative Negative [facility] UA pH 6.0 4.8 - 8.0 [facility] Comment:Reference range emily d for random specimens only. UA Protein Negative Negative [facility] UA Urobilinogen Normal <=1 mg/dl [facility] UA Nitrite Negative Negative [facility] UA Leuk Est Negative Negative [facility] UA Spec Grav 1.009 1.001 - 1.035 [facility] Comment:Reference range emily d for random specimens only. UA WBC <1 0 - 4 /HPF [facility] UA Mucus Trace [facility] UA Hyal Cast 1 0 - 2 /LPF [facility] UA Trans Epi <1 /HPF [facility] Urine specimen (specimen) STRUCTURE OF URINARY TRACT PROPER / Unknown 05/31/2015 12:32 PM EST 05/31/2015 12:39 PM EST us Octavia Ramos MD URINE ORDERABLES Final Resul t Performing Organization Address City/[facility]/[place] [address] * (ABNORMAL) CBC (05/31/2015 9:57 AM EST) WBC 12.0(H) 4.0 - 11.0 x10(3)/mcL [facility] RBC 3.56(L) 3.80 - 5.10 x10(6)/mcL [facility] Hgb 10.9(L) 12.0 - 15.6 gm/dL [facility] Hct 31.8(L) 35.7 - 45.9 % [facility] MCV 89.4 82.5 - 99.8 fL [facility] MCH 30.5 27.0 - 34.3 pg [facility] MCHC 34.1 32.1 - 35.3 gm/dL [facility] RDW 12.8 11.5 - 15.0 % [facility] Platelet 168 144 - 423 x10(3)/mcL [facility] MPV 8.9 6.8 - 10.8 fL [facility] Blood specimen (specimen) UPPER LIMB STRUCTURE / Unknown 05/31/2015 9:57 AM EST 05/31/2015 10:03 AM EST Octavia Ramos MD HEMATOLOGY ORDERABLES Final Result Performing Organization Address City/[facility]/[place] [address] * (ABNORMAL) NT PROBNP (05/31/2015 9:57 AM EST) NT Pro-BNP 840(H) <=319 pg/mL [facility] Comment: An NT pro-BNP level less than 300 pg/mL in any patient, regardless of age, Effectively rules out acute CHF with a 99% negative predictive value. Blood specimen (specimen) UPPER LIMB STRUCTURE / Unknown 05/31/2015 9:57 AM EST 05/31/2015 10:03 AM EST Octavia Ramos MD CHEMISTRY ORDERABLES Final R esult Performing Organization Address City/[facility]/ZIP Co de Phone Number [facility] [address] [place] [address] * (ABNORMAL) BLOOD GAS ARTERIAL (05/31/2015 9:57 AM EST) Pathologist [facility] pH 7.410 7.370 - 7.440 [facility] pCO2 48(H) 32 - 45 mmHg [facility] pO2 115(H) 80 - 95 mmHg [facility] HCO3 30(H) 20 - 29 mmol/L [facility] TCO2 32(H) 21 - 30 mmol/L [facility] Base Excess 4.8(H) -2.8 - 2.3 mEq/L [facility] O2 Sat 99(H) 95 - 97 % [facility] Inspired O2 3.5L [facility] Specimen Type Arterial [facility] Blood specimen (specimen) UPPER LIMB STRUCTURE / Unknown 05/31/2015 9:57 AM EST 05/31/2015 10:03 AM EST Octavia Ramos MD CHEMISTRY ORDERABLES Final R esult Performing Organization Address City/[facility]/ZIP Co de Phone Number [facility] [address] [place] [address] * XR CHEST AP PORTABLE (05/31/2015 9:46 AM EST) Anatomical Region Laterality Modality Chest Radio Fluoroscop y 05/31/2015 9:46 AM EST Impressions 05/31/2015 10:26 AM EST IMPRESSION: No acute abnormality identified in the chest. Narrative 05/31/2015 10:26 AM EST Portable upright AP chest dated 05/31/2015 at 0945 hours COMPARISON: None HISTORY: Hypoxia FINDINGS: The patient is rotated to the right. Aorta is tortuous. Heart size and mediastinal contours are otherwise unremarkable. Lungs are clear of confluent airspace opacity. No pneumothorax or pleural effusion identified given technique. Procedure Note Brandon Chan MD - 05/31/2015 Portable upright AP chest dated 05/31/2015 at 0945 hours COMPARISON: None HISTORY: Hypoxia FINDINGS: The patient is rotated to the right. Aorta is tortuous. Heart size and mediastinal contours are otherwise unremarkable. Lungs are clear ofconfluent airspace opacity. No pneumothorax or pleural effusion identified given technique. IMPRESSION: No acute abnormality identified in the chest. Octavia Ramos MD [facility] DIAGNOSTIC IMAGING ORDER KARIME Final Result * XR KNEE LEFT AP AND LATERAL (05/29/2015 4:15 PM EST) Anatomical Region Laterality Modality Knee Radiographic Lelia ging 05/29/2015 4:15 PM EST Impressions 05/29/2015 4:31 PM EST Impression: 1. Uncomplicated appearing left knee following arthroplasty. Narrative 05/29/2015 4:31 PM EST XR KNEE LEFT AP AND LATERAL 05/29/2015 HISTORY: Left knee arthroplasty 2 views of the left knee show prior 3 component arthroplasty has been performed. Components articulate as expected. No fracture or dislocation identified. Procedure Note Thompson Morris MD - 05/29/2015 XR KNEE LEFT AP AND LATERAL 05/29/2015 HISTORY: Left knee arthroplasty 2 views of the left knee show prior 3 component arthroplasty has beenperformed. Components articulate as expected. No fracture or dislocationidentified. Impression: 1. Uncomplicated appearing left knee following arthroplasty. us Mahesh Bishop MD IMG DIAGNOSTIC IMAGING O RDERABLES Final Result * XR KNEE RIGHT AP AND LATERAL (05/29/2015 4:14 PM EST) Anatomical Region Laterality Modality Knee Radiographic Lelia ging 05/29/2015 4:14 PM EST Impressions 05/29/2015 4:39 PM EST IMPRESSION: Uncomplicated right total knee replacement. Narrative 05/29/2015 4:39 PM EST XR KNEE RIGHT AP AND LATERAL 05/29/2015 4:14 PM HISTORY: -Post-Op Total Knee Replacement Status post total knee replacement with components well positioned. Postsurgical changes in the anterior soft tissues. Procedure Note Obey Lepe MD - 05/29/2015 XR KNEE RIGHT AP AND LATERAL 05/29/2015 4:14 PM HISTORY: -Post-Op Total Knee Replacement Status post total knee replacement with components well positioned.Postsurgical changes in the anterior soft tissues. IMPRESSION: Uncomplicated right total knee replacement. us Mahesh Bishop MD IMG DIAGNOSTIC IMAGING O RDERABLES Final Result * CROSSMATCH SUMMARY (05/29/2015 10:26 AM EST) Blood specimen (specimen) 05/29/2015 10:26 AM EST 05/29/2015 10:26 AM EST us Mahesh Bishop MD BLOOD BANK ORDERABLES Fi nal Result [facility] [address] [place] [address] * STAPHYLOCOCCUS AUREUS SCREEN (05/22/2015 1:20 PM EDT) Final No growth of Staphylococcus aureus [facility] Specimen from nose (specimen) 05/22/2015 1:20 PM EDT 05/22/2015 1:30 PM EDT us Mahesh Bishop MD MICROBIOLOGY - GENERAL O RDERABLES Final Result [facility] [address] [place] [address] * ABORH (05/22/2015 1:20 PM EDT) ABOR Int O POS [facility] Blood specimen (specimen) 05/22/2015 1:20 PM EDT 05/22/2015 1:23 PM EDT us Mahesh Bishop MD BLOOD BANK ORDERABLES Fi nal Result Performing Organization Address [facility] de Phone Number [facility] [address] [place] [address] * (ABNORMAL) PARTIAL THROMBOPLASTIN TIME (05/22/2015 1:20 PM EDT) PTT 36.0(H) 26.7 - 35.9 second(s) [facility] Comment: Therapeutic range for direct thrombin inhibitors: Argatroban is 1.5 to 3 times the aPTT baseline. Lepirudin is 1.5 to 2 times the aPTT baseline. The aPTT should not exceed 100 seconds. The dosage of Argatroban should be decreased in patients with hepatic impairment. The dosage of Lepirudin should be decreased in renal insufficiency. The aPTT is no longer the appropriate test to monitor unfractionated heparin anticoagulation. Blood specimen (specimen) 05/22/2015 1:20 PM EDT 05/22/2015 1:24 PM EDT us Mahesh Bishop MD HEMATOLOGY ORDERABLES Fi nal Result Performing Organization Address [facility] de Phone Number [facility] [address] [place] [address] * PT / INR (05/22/2015 1:20 PM EDT) PT 11.1 9.3 - 12.3 second(s) [facility] INR 1.04 0.87 - 1.15 [facility] Comment: Level of Therapy Indications Target INR Range Standard Dose Treatment and prophylaxis of venous 2.0 - 3.0 thrombosis, pulmonary embolism High Dose High risk patients with mechanical 2.5 - 3.5 heart valves Blood specimen (specimen) 05/22/2015 1:20 PM EDT 05/22/2015 1:24 PM EDT us Mahesh Bishop MD HEMATOLOGY ORDERABLES Fi nal Result Performing Organization Address [facility]/State/ZIP Co de Phone Number [facility] [address] [place] [address] * ANTIBODY SCREEN IGG (05/22/2015 1:20 PM EDT) ABSC IgG Int Negative [facility] Blood specimen (specimen) 05/22/2015 1:20 PM EDT 05/22/2015 1:23 PM EDT us Mahesh Bishop MD BLOOD BANK ORDERABLES Fi nal Result [facility] [address] [place] [address] * XR FOOT RIGHT AP LATERAL AND OBLIQUE (01/09/2015 12:46 PM EDT) Only the most recent of6 resultswithin the time period is included. Anatomical Region Laterality Modality Foot Radiographic Lelia ging Narrative 01/09/2015 3:34 PM EDT Good healing, good consolidation, stable congruous first MP joint, rectus first ray, fixation in place us Jovi Villatoro DPM IMG DIAGNOSTIC IMAGING ORDKaela ESCOBAR Final Result * SCANNED ANESTHESIA FORMS (07/28/2014 3:59 PM EST) 07/28/2014 3:59 PM EST us Unknown Unknown PROCEDURE/MINOR SURGICAL ORDERAB LES Final Result * SCANNED PRE/POST PROCEDURES (08/28/2011 9:32 PM EST) Narrative Transcriptions Unknown, Unknown - 08/28/2011 9:31 PM EST us Unknown Unknown PROCEDURE/MINOR SURGICAL ORDERAB LES Final Result * SCANNED ANESTHESIA FORMS (08/28/2011 9:32 PM EST) Narrative Transcriptions Unknown, Unknown - 08/28/2011 9:31 PM EST us Unknown Unknown PROCEDURE/MINOR SURGICAL ORDERAB LES Final Result * SCANNED OR REPORT (08/26/2011 11:41 AM EST) Narrative Transcriptions Unknown, Unknown - 08/26/2011 11:40 AM EST us Unknown Unknown PROCEDURE/MINOR SURGICAL ORDERAB LES Final Result * SURGICAL PATHOLOGY REPORT (08/26/2011 8:45 AM EST) Surgical Pathology Report PATIENT NAME:SHIRIN DOVE Surgical Pathology Report Accession Number Collected Date/Time Received Date/Time [id number] 08/26/11 08:45 EST 08/26/11 13:20 EST Diagnosis Ganglion cyst, excision: - Benign synovial cyst. JOELLE PORTER MD (Electronicall y signed by) Verified: 08/27/2011 [facility] Clinical Information Hallux valgus hammertoe left Gross Description Received in formalin labeled with the patient's name and ganglion cyst are 3 pieces of pale mtz irregular tissues, 0.5 x 0.5 x 0.3 cm to 1.0 x 0.6 x 0.5 cm. Sectioning reveals mtz rubbery tissue with possible small cyst. The specimen is entirely submitted in one cassette./[place] MR /ANDREAS Microscopic Description Microscopic examination is performed and the findings corroborate the diagnosis. [facility] 08/26/2011 8:45 AM EST us Jovi Villatoro DPM PATHOLOGY ORDERABLES Final Result Performing Organization Address City/State/[facility] Co de Phone Number [facility] [address] [place] [address] Visit Diagnoses Diagnosis Start Date Routine gynecological examination 10/20/2012 Routine gynecological examination 10/20/2012 Breast cancer (HCC) Malignant neoplasm of breast (female), unspecified site 10/20/2012 Other screening mammogram 11/16/2013 Routine gynecological examination 11/16/2013 Post-menopausal Asymptomatic postmenopausal status (age-related) (natural) 11/16/2013 Other screening mammogram 11/16/2013 Routine gynecological examination 11/16/2013 Hallux valgus, acquired, right 03/15/2014 Other hammer toe (acquired) 03/15/2014 Bunion, right 03/15/2014 Preop testing Preoperative examination, unspecified 07/19/2014 Hallux valgus (acquired) 07/25/2014 Other hammer toe (acquired) 07/25/2014 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 Hallux valgus (acquired) 08/02/2014 Hallux valgus (acquired) 08/11/2014 Hallux valgus (acquired) 08/18/2014 Hallux valgus (acquired) 09/08/2014 Hallux valgus (acquired) 10/03/2014 Routine gynecological examination 11/30/2014 Routine gynecological examination 11/30/2014 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 Anticoagulation adequate Encounter for long-term (current) use of anticoagulants 05/22/2015 Preop testing Preoperative examination, unspecified 05/22/2015 Generalized OA Generalized osteoarthrosis, unspecified site 05/22/2015 Primary localized osteoarthrosis, lower leg, left 05/29/2015 Pain in both lower extremities 06/03/2015 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 Family history of uterine cancer Family history of malignant neoplasm of genital organ, other 12/27/2015 Well woman exam with routine gynecological exam Routine gynecological examination 12/27/2015 HX: breast cancer Personal history of malignant neoplasm of breast 12/27/2015 Well woman exam with routine gynecological exam Routine gynecological examination 12/27/2015 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 Pelvic pain in female Unspecified symptom associated with female genital organs 12/27/2015 Family history of uterine cancer Family history of malignant neoplasm of genital organ, other 12/27/2015 HX: breast cancer Personal history of malignant neoplasm of breast 12/27/2015 Pelvic pain in female Unspecified symptom associated with female genital organs 12/28/2015 Pain in right knee Pain in joint, lower leg 03/12/2016 Pain in left knee Pain in joint, lower leg 03/12/2016 Pain in right knee Pain in joint, lower leg 03/12/2016 Pain in left knee Pain in joint, lower leg 03/12/2016 Bilateral knee pain Pain in joint, lower leg 03/12/2016 Situational anxiety Other anxiety states 11/04/2016 Dyspnea, unspecified type 11/04/2016 Post-menopausal Asymptomatic postmenopausal status (age-related) (natural) 01/07/2017 Post-menopausal Asymptomatic postmenopausal status (age-related) (natural) 01/07/2017 Well woman exam with routine gynecological exam Routine gynecological examination 01/07/2017 Well woman exam Routine general medical examination at a health care facility 01/30/2018 Pain in left knee Pain in joint, lower leg 03/02/2020 Pain in right knee Pain in joint, lower leg 03/02/2020 Pain in left knee Pain in joint, lower leg 03/15/2020 Pain in right knee Pain in joint, lower leg 03/15/2020 Left knee pain, unspecified chronicity 03/15/2020 Right knee pain, unspecified chronicity 03/15/2020 Malignant hypertension Essential hypertension, malignant 07/06/2020 Other hyperlipidemia 07/06/2020 Chest discomfort Other chest pain 07/06/2020 Insomnia, unspecified type 07/06/2020 Malignant hypertension Essential hypertension, malignant 07/11/2020 Malignant hypertension Essential hypertension, malignant 07/11/2020 Other hyperlipidemia 07/11/2020 Pre-op testing Preoperative examination, unspecified 07/27/2020 Encounter for laboratory testing for COVID-19 virus 07/27/2020 Nuclear sclerotic cataract of right eye Senile nuclear sclerosis 07/31/2020 Pre-op testing Preoperative examination, unspecified 08/10/2020 Encounter for laboratory testing for COVID-19 virus 08/10/2020 Nuclear sclerotic cataract of left eye Senile nuclear sclerosis 08/14/2020 Malignant hypertension Essential hypertension, malignant 10/11/2020 Obstructive sleep apnea Obstructive sleep apnea (adult) (pediatric) 10/11/2020 Other hyperlipidemia 10/11/2020 Screening mammogram, encounter for 10/05/2021 Well woman exam Routine general medical examination at a health care facility 10/05/2021 Encounter for colonoscopy in patient with family history of colon cancer 11/21/2022 Screening for colon cancer Special screening for malignant neoplasms, colon 11/21/2022 Special screening for malignant neoplasms, colon 11/21/2022 Gastroesophageal reflux disease without esophagitis Esophageal reflux 11/26/2022 Dysphagia, unspecified type 11/26/2022 Polyp of colon, unspecified part of colon, unspecified type 11/26/2022 Family hx of colon cancer Family history of malignant neoplasm of gastrointestinal tract 11/26/2022 Garcia's esophagus without dysplasia Garcia's esophagus 11/26/2022 Screening for colon cancer Special screening for malignant neoplasms, colon 12/31/2022 Gastroesophageal reflux disease without esophagitis Esophageal reflux 01/08/2023 Dysphagia, unspecified type 01/08/2023 Garcia's esophagus without dysplasia Garcia's esophagus 01/08/2023 Polyp of colon, unspecified part of colon, unspecified type 01/08/2023 Family hx of colon cancer Family history of malignant neoplasm of gastrointestinal tract 01/08/2023 Primary osteoarthritis of both knees Primary localized osteoarthrosis, lower leg 05/29/2015 Hypothyroidism Unspecified hypothyroidism 05/29/2015 GERD (gastroesophageal reflux disease) Esophageal reflux 05/29/2015 HTN (hypertension) Unspecified essential hypertension 05/29/2015 Hypoxia Hypoxemia 05/29/2015 Gastroesophageal reflux disease Esophageal reflux 05/29/2015 Essential hypertension Unspecified essential hypertension 05/29/2015 Care Teams Marketing Representative Relationship Specialty Start Date End Date Alber Phillips [address] [place] [address] PCP - General Family Medicine 03/14/20
--- OUTSIDE RECORDS SUMMARY | 2025-03-31 09:54 | XMS_ITS | Encounter Summary ---
Author Organization [facility] Address [facility] [place] [address] Care Team Providers Care Peanut Cleaner Name Role Phone Mckayla Larry MD Unavailable [phone] System, Provider Not In Primary Care Provider Un available Pcp, No Primary Care Provider +[phone] -[phone] Alber Phillips MD Primary Care Provider [phone] Pcp, No Primary Care Provider +[phone] -[phone] Rachel Barrow MD Unavailable [phone] Rachel Barrow MD Unavailable [phone] Leslee Hunter CNP Unavailable [phone] Gianna Bullard RN Unavailable UnavailRachel Quintana MD Unavailable Cristobal troncoso Unknown, Attending Provider Primary Care Provide r Unavailable Pcp, No Primary Care Provider +[phone] -0000 Kathy Payne MD Unavailable [phone] Zhane Baker Unavailable Pcp, No Primary Care Provider [phone] Stefan John MD Unavailable [phone] Jerri Colvin Primary Care Provider [phone] Source Comments This information has been disclosed to you from confidential records protectfrom disclosure by state law. You shall make no further disclosure of thisinformation without the specific, written, and informed release of theindividual to whom it pertains, or as otherwise permitted by law. A generalauthorization for the release of medical or other information is not sufficientfor the purposes of the release of HIV test results or diagnoses. [id number] Reason for Referral * Diagnostic Imaging (Routine) - Closed Specialty Diagnoses / Procedures Referred By Contcynthia t Referred To Contact Diagnoses Visit for screening mammogram Procedures Mammography Screening Bilateral incl CAD Jerri Colvin [address] [place] [address] [place] [address] Phone: tel: fax: Referral ID Status Reason Start Date Expiration Date Visits Re quested Visits Authorized [id number] Closed 12/16/2018 06/14/2019 1 1 Encounter Details Date Type Department Care Team (Late st Contact Info) Description 12/16/2018 Orders Only [address] [phone] Jerri Colvin [address] [place] [address] [place] [id number] Visit for screening mammogram (Primary Dx) Social History Tobacco Use Types Packs/Day Years Used Date Smoking Tobacco: Never Smokeless Tobacco: Never Comments:12/05/2011 passive smoke exposure: yes Alcohol Use Standard Drinks/Week Comments No 0 (1 standard drink = 0.6 oz pur e alcohol) 12/05/2011. 06/02/12. Comments No Sex and Gender Information Value Date Recorded Sex Assigned at Not on file Legal Sex Female 7:08 PM EST Gender Identity Not on file Sexual Orientation Not on file documented as of this encounter Plan of Treatment Not on file documented as of this encounter Results * Mammography Screening Bilateral incl CAD (12/24/2018 10:44 AM EDT) Anatomical Region Laterality Modality Breast Bilateral Mammography 12/24/2018 10:3 6 AM EDT Impressions 12/25/2018 4:45 PM EDT IMPRESSION: No mammographic evidence of malignancy in either breast. Recommendations: Annual screening mammogram in one year. ACR BI-RADS Category: 2 (benign findings) Approved by Thuy Walker MD on 12/24/2018 6:04 PM EDT I have personally reviewed the images and I agree with this report. Report Verified by: Ritu Ramos MD at 12/25/2018 4:45 PM EDT Narrative 12/25/2018 4:45 PM EDT Exam: Digital bilateral breast screening mammogram with CAD on 12/24/2018 10:36 AM EDT. Indication: Screening mammography. 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 Comparison: 2014 through 2017 Technique: Digital mammographic images were obtained in MLO and CC projections. The mammographic images were double read with R2 CAD ImageChecker. Breast Density: There are scattered areas of fibroglandular density. Findings: Postsurgical changes with architectural distortion; biopsy marker and several surgical clips in the left lower outer breast at the 6:00 position. An asymmetry in the upper right breast on MLO view has not significantly changed compared to 11/29/2014, hence is considered benign. No significant interval change. us Provider Not In System IMG MAMMOGRAPHY ORDERABLE S Final Result documented in this encounter Visit Diagnoses Diagnosis Visit for screening mammogram- Primary Visit for screening mammogram documented in this encounter Care Teams Peanut Cleaner Relationship Specialty Start Date End Date System, Provider Not In PCP - General 06/04/17 12/23/18 Pcp, No No Address PCP - General Pediatrics 12/24/18 01/15/21 Alber Phillips MD [address] [place] [address] PCP - General Family Medicine 01/16/21 01/24/21 Pcp, No No Address PCP - General 01/25/21 02/01/21 Unknown, Attending Provider PCP - General 02/02/21 04/17/21 Pcp, No No Address PCP - General 04/18/21 05/16/21 Pcp, No [address] [place] [address] PCP - General 05/17/21 09/12/21 Jerri Colvin [address] [address] [place] [address] PCP - General 09/13/21 Mckayla Larry MD Medical Oncologist Breast Oncology 06/02/12 Rachel Barrow MD [address] [place] [address] Surgical Oncologist Breast Surgery 01/25/21 Rachel Barrow MD [address] [place] [address] Initiating Oncologist Surgical Oncology 01/25/21 Leslee Hunter CNP [address] [place] [phone] Nurse Practitioner Surgical Oncology 01/25/21 Gianna Bullard, RN Registered Nurse Breast Surgery 01/25/21 Rachel Bolanos MD Surgical Oncologist Plastic Surgery 01/31/21 Kathy Payne MD [address] [place] [address] Surgical Oncologist Breast Oncology 04/20/21 Zhane Baker [address] [place] [phone] Nurse Practitioner [facility] H[facility]ology 04/26/21 Stefan John MD [address] [facility] [place] [address] Surgical Oncologist Plastic Surgery 08/29/21 documented as of this encounter
== END 2025-03-29 23:59 | disposition home or self-care (01) ==
LOC: LAB.DROPOF 03-31 09:48
PROVIDERS: PCP Nurse Practitioner Family; Visit Provider Nurse Practitioner Family
DX: E03.9 Hypothyroidism, unspecified (principal); I10 Essential (primary) hypertension; R53.83 Other fatigue
CPT/HCPCS: 80053; 80061; 82607; 83735; 84443; 85025

== ENCOUNTER 2025-04-01 15:06 | Emergency (ER) | payer MEDICARE, SELFPAY ==
--- OUTSIDE RECORDS SUMMARY | 2016-03-12 10:16 | XMS_ITS | Encounter Summary ---
Author Organization [place] [address] Care Team Providers Care State Pilot Name Role Phone Duarte Romo MD, Mahesh Sandoval Primary Care Provid er Encounter Details Date Type Department Care Team (Latest Contact Info) Description 03/12/2016 10:16 AM EDT Hospital Encounter SE Referral Lab 1 [place], [place] [phone] Mahesh Bishop MD [address] [place] [address] Pain in right knee; Pain [...] RATE AUTOMATED (03/12/2016 12:00 PM EDT) Pathologist [facility] Sed Rate 24 0 - 30 mm/hr [facility] Blood specimen (specimen) 03/12/2016 12:00 PM EDT 03/12/2016 3:20 PM EDT us Mahesh Bishop MD HEMATOLOGY ORDERABLES Fi nal Result Performing Organization Address [facility] [place] [address] * CBC WITH AUTO DIFF (03/12/2016 12:00 PM EDT) [facility] WBC 5.5 4.0 - 11.0 x10(3)/mcL [facility] RBC 4.42 3.80 - 5.10 x10(6)/mcL [facility] Hgb 13.6 12.0 - 15.6 gm/dL [facility] Hct 39.2 35.7 - 45.9 % [facility] MCV 88.7 82.5 - 99.8 fL [facility] MCH 30.7 27.0 - 34.3 pg [facility] MCHC 34.6 32.1 - 35.3 gm/dL [facility] RDW 13.1 11.5 - 15.0 % [facility] Platelet 174 144 - 423 x10(3)/mcL [facility] MPV 9.0 6.8 - 10.8 fL [facility] Blood specimen (specimen) 03/12/2016 12:00 PM EDT 03/12/2016 3:20 PM EDT us Mahesh Bishop MD HEMATOLOGY ORDERABLES Fi nal Result Performing Organization Address City/[facility] Co de Phone Number [address] [address] * C-REACTIVE PROTEIN (03/12/2016 12:00 PM EDT) Pathologist [facility] CRP 1.88 <=5.00 mg/L [facility] Blood specimen (specimen) 03/12/2016 12:00 PM EDT 03/12/2016 3:20 PM EDT us Mahesh Bishop MD CHEMISTRY ORDERABLES Fin al Result [facility] 1 [place] [address] documented in this encounter Visit Diagnoses Diagnosis Pain in right knee Pain in joint, lower leg Pain in left knee Pain in joint, lower leg documented in this encounter Care Teams State Pilot Relationship Specialty Start Date End Date Mahesh Ramachandran Sr., MD [address] [place] [phone] PCP - General 08/22/11 03/13/20 documented as of this encounter
--- OUTSIDE RECORDS SUMMARY | 2020-03-02 14:26 | XMS_ITS | Encounter Summary ---
Author Organization [place] [address] Care Team Providers Care Statement Clerk Name Role Phone Duarte Romo MD, Mahesh Sandoval Primary Care Provid er Encounter Details Date Type Department Care Team (Latest Contact Info) Description 03/02/2020 2:26 PM EDT Hospital Encounter [facility] Referral Lab [address] [place], [place] [id number] Mahesh Bishop MD [address] [place] [address] Pain in left knee; Pain [...] nal Result [facility] 1 [facility] , [place] [address] * CBC WITH DIFF (03/15/2020 10:02 AM [...] 03/15/2020 3:49 PM EDT [facility] Comment:Neutrophils equals s egs plus bands Imm Gran% 0.3 % 03/15/2020 3:49 PM EDT [facility] Comment:Automated count of m etamyelocytes, myelocytes and promyelocytes. Lymph Percent 21.5 % 03/15/2020 3:49 PM EDT [facility] [place] Percent 9.9 % 03/15/2020 3:49 PM EDT [facility] Eos Percent 1.7 % 03/15/2020 3:49 PM EDT [facility] Baso Percent 0.5 % 03/15/2020 3:49 PM EDT [facility] Neut # 3.9 1.6 - 6.1 x10(3)/mcL 03/15/2020 3:49 PM EDT [facility], [facility] Comment:Neutrophils equals s egs plus bands IMMGRAN# 0.0 0.0 - 0.1 x10(3)/mcL 03/15/2020 3:49 PM EDT [facility], [facility] Comment:Automated count of m etamyelocytes, myelocytes and promyelocytes. An absolute IG <0.1 is reported as 0.0. Lymph # 1.3 1.2 - 3.9 x10(3)/mcL 03/15/2020 3:49 PM EDT [facility] [place] # 0.6 0.3 - 0.9 x10(3)/mcL 03/15/2020 3:49 PM EDT [facility] Eos# 0.1 0.0 - 0.5 x10(3)/mcL 03/15/2020 3:49 PM EDT [facility], [facility] Baso # 0.0 0.0 - 0.1 x10(3)/mcL 03/15/2020 3:49 PM EDT [facility], [facility] Blood Venipuncture / Unknown 03/15/2020 10:02 AM EDT 03/15/2020 10:02 AM EDT us Mahesh Bishop MD HEMATOLOGY ORDERABLES Fi nal Result [facility] [address] [facility] , [address] [place], [place] [id number] * C-REACTIVE PROTEIN (03/15/2020 10:02 AM EDT) CRP 1.76 <=5.00 mg/L 03/15/2020 4:32 PM EDT [facility] Blood Venipuncture / Unknown 03/15/2020 10:02 AM EDT 03/15/2020 10:02 AM EDT us Mahesh Bishop MD CHEMISTRY ORDERABLES Fin al Result [facility] 1 [facility] , [place] [address] documented in this encounter Visit Diagnoses Diagnosis Pain in left knee Pain in joint, lower leg Pain in right knee Pain in joint, lower leg documented in this encounter Care Teams Statement Clerk Relationship Specialty Start Date End Date Mahesh Ramachandran Sr., MD [address] [place] [phone] PCP - General 08/22/11 03/13/20 documented as of this encounter
[2025-04-01 15:14] VITALS: BP 232/116; BP 234/88; PULSE 72; RESP 18; TEMP 36.6; O2SAT 98; BMI 25.9
--- OUTSIDE RECORDS SUMMARY | 2025-04-01 15:26 | XMS_ITS | Continuity of Care Document ---
Author Organization [facility] Address [address] [place] [address] Phone Care Team Providers Care Music Writer Name Role Phone Alber Phillipsw Primary Care Provider [phone] Encounters Date Type Department Care Team Description 01/08/2023 6:15 AM EDT - 01/08/2023 11:59 PM EDT Hospital Encounter [facility] [address] [place] [address] Hilda Parish APRN Vermani, Samir D, MD Gastroesophageal reflux disease without esophagitis; Dysphagia, unspecified type; Garcia's esophagus without dysplasia; Polyp of colon, unspecified part of colon, unspecified type; Family hx of colon cancer Discharge Disposition: Home or Self Care 12/31/2022 Orders Only [facility] [address] [place] [address] Vincenzo Elmore MD Screening for colon cancer (Primary Dx) 11/26/2022 9:50 AM EDT Telemedicine [facility] [address] [place] [facility] [place] [address] Hilda Parish APRN Gastroesophageal reflux disease without esophagitis (Primary Dx); Dysphagia, unspecified type; Polyp of colon, unspecified part of colon, unspecified type; Family hx of colon cancer; Garcia's esophagus without dysplasia 11/21/2022 Telephone [facility] [address] [place] [address] Vincenzo Elmore MD Procedure 10/05/2021 10:40 AM EST Office Visit [facility] NPTFTT [address] [place] [address] Iza Ortega MD Screening mammogram, encounter for (Primary Dx); Well woman exam 10/31/2020 Telephone [facility] [address] [address] Alex Luong MD Results (lab results from [facility]) 10/11/2020 Travel 10/11/2020 10:30 AM EDT Office Visit [facility] [address] [address] Alex Luong MD Other hyperlipidemia (Primary Dx); Malignant hypertension; Obstructive sleep apnea 09/12/2020 Telephone [facility] [address] [address] Alex Luong MD Results (ROSA M Sleep Study Report.) 08/14/2020 Travel 08/14/2020 9:45 AM EST - 08/14/2020 10:00 AM EST Surgery [facility] [address] [place] [address] Arie Mcnair MD CATARACT EXTRACTION WITH PHACOEMULSIFICATION AND INTRAOCULAR LENS 08/14/2020 10:11 AM EST Anesthesia Event [facility] [address] [place] [address] Obey Alas MD Stroupe, Howard L IV, MD 08/14/2020 8:38 AM EST - 08/14/2020 11:12 AM EST Hospital Encounter [facility] [address] [place] [address] Arie Mcnair MD Discharge Disposition: Home or Self Care 08/10/2020 9:46 AM EST - 08/10/2020 11:59 PM EST Hospital Encounter [facility] [address] [place] [address] Covid19, [facility] Pre-op testing; Encounter for laboratory testing for COVID-19 virus Discharge Disposition: Home or Self Care 08/01/2020 Telephone [facility] [address] [place] [phone] Alex Luong MD Dizziness 07/31/2020 Travel 07/31/2020 10:45 AM EST - 07/31/2020 11:00 AM EST Surgery [facility] [address] [place] [address] Arie Mcnair MD CATARACT EXTRACTION WITH PHACOEMULSIFICATION AND INTRAOCULAR LENS 07/31/2020 10:26 AM EST Anesthesia Event [facility] [address] [place] [address] Mitch Allan IV, MD Grigorieva, Anastassia, MD 07/31/2020 9:28 AM EST - 07/31/2020 11:23 AM EST Hospital Encounter [facility] [address] [place] [address] Arie Mcnair MD Discharge Disposition: Home or Self Care 07/27/2020 11:39 AM EST - 07/27/2020 11:59 PM EST Hospital Encounter [facility] [address] [place] [address] Covid19, [facility] Pre-op testing; Encounter for laboratory testing for COVID-19 virus Discharge Disposition: Home or Self Care 07/17/2020 Travel 07/11/2020 Travel 07/11/2020 9:47 AM EST - 07/11/2020 11:59 PM EST Hospital Encounter [facility] [address] [facility] [address] [place] [address] Alex Luong MD Malignant hypertension Discharge Disposition: Home or Self Care 07/11/2020 10:45 AM EST Office Visit [facility] [address] [place] [address] Alex Luong MD Malignant hypertension (Primary Dx); Other hyperlipidemia 07/10/2020 Telephone [facility] [address] [phone] Alex Luong MD Results (Lab Work ) 07/07/2020 Telephone [facility] [address] [address] Alex Luong MD Non-scheduled Referral 07/06/2020 Travel 07/06/2020 3:15 PM EST Office Visit [facility] [address] [address] Alex Luong MD Malignant hypertension (Primary Dx); Other hyperlipidemia; Chest discomfort; Insomnia, unspecified type 03/15/2020 10:00 AM EDT - 03/15/2020 10:01 AM EDT Hospital Encounter [facility] [address] [place] [address] Mahesh Bishop MD Pain in left knee; Pain in right knee Discharge Disposition: Home or Self Care 03/15/2020 Travel 03/15/2020 10:02 AM EDT - 03/15/2020 11:59 PM EDT Hospital Encounter [facility] [address] [place] [address] Mahesh Bishop MD Left knee pain, unspecified chronicity Discharge Disposition: Home or Self Care 03/15/2020 10:00 AM EDT Hospital Encounter [facility] [address] [address] [place], [place] [address] Mahesh Bishop MD Right knee pain, unspecified chronicity Discharge Disposition: Home or Self Care 03/14/2020 Travel 03/02/2020 2:26 PM EDT Hospital Encounter [facility] Referral Lab [address] [place] [address] Mahesh Bihsop MD Pain in left knee; Pain in right knee 01/30/2018 1:00 PM EDT Office Visit [facility] NPTFTT [address] [place] [phone] Iza Ortega MD Well woman exam (Primary Dx) 01/23/2017 Telephone [facility] N[facility] [address] [place] [address] Iza Ortega MD Results 01/07/2017 2:45 PM EDT - 01/07/2017 11:59 PM EDT Hospital Encounter [facility] [address] [place] [address] Iza Ortega MD Post-menopausal Discharge Disposition: Home or Self Care 01/07/2017 1:40 PM EDT Office Visit [facility] NPTT [address] [place] [address] Iza Ortega MD Post-menopausal (Primary Dx); Well woman exam with routine gynecological exam 11/04/2016 11:13 PM EDT - 11/05/2016 4:48 AM EDT [facility] [address] Pablo Smith MD Situational anxiety (Primary Dx); Dyspnea, unspecified type Discharge Disposition: Home or Self Care 03/12/2016 11:56 AM EDT - 03/12/2016 11:59 PM EDT Hospital Encounter [facility] [address] [place] [address] Mahesh Bishop MD Pain in right knee; Pain in left knee Discharge Disposition: Home or Self Care 03/12/2016 10:16 AM EDT Hospital Encounter [facility] Referral Lab [address] [place] [address] Mahesh Bishop MD Pain in right knee; Pain in left knee 03/12/2016 11:48 AM EDT - 03/12/2016 11:55 AM EDT [facility] [address] [place] [address] Mahesh Bishop MD Bilateral knee pain Discharge Disposition: Home or Self Care 02/14/2016 Telephone [facility] [address] [address] Maryjane Duron MD Results 12/28/2015 Telephone [facility] [address] [address] Maryjane Duron MD Visit Follow Up 12/28/2015 10:34 AM EDT - 12/28/2015 11:59 PM EDT Hospital Encounter [facility] [address] [place] [address] Maryjane Duron MD Pelvic pain in female Discharge Disposition: Home or Self Care 12/27/2015 3:25 PM EDT - 12/27/2015 11:59 PM EDT Hospital Encounter [facility] [place] [address] Ductal carcinoma in situ (DCIS) of left breast; Family history of uterine cancer; Well woman exam with routine gynecological exam; HX: breast cancer Discharge Disposition: Home or Self Care 12/27/2015 8:00 AM EDT Office Visit [facility] [address] [address] Maryjane Duron MD Well woman exam with routine gynecological exam (Primary Dx); Ductal carcinoma in situ (DCIS) of left breast; Pelvic pain in female; Family history of uterine cancer; HX: breast cancer 06/03/2015 2:47 PM EST - 06/03/2015 5:52 PM EST Emergency [facility] [place] [address] May Ray MD Pain in both lower extremities (Primary Dx) Discharge Disposition: Nursing Home Facility 05/29/2015 9:26 AM EST - 06/01/2015 4:04 PM EST Hospital Encounter [facility] 7D ORTHO [facility] [place] [address] Mahesh Bishop MD Discharge Disposition: Nursing Home Facility 05/29/2015 12:00 PM EST - 05/29/2015 3:00 PM EST Surgery [facility] [place] [address] Mahesh Bishop MD ARTHROPLASTY, KNEE, TOTAL, BILATERAL 05/29/2015 12:03 PM EST Anesthesia Event [facility] [place] [address] Mahesh Rosas MD Merkle Serey, Jennifer L, NP 05/22/2015 1:00 PM EDT - 05/22/2015 11:59 PM EDT Hospital Encounter [facility] [address] Provider, [facility] Total Joint Class Discharge Disposition: Home or Self Care 05/22/2015 11:15 AM EDT - 05/22/2015 12:59 PM EDT Hospital Encounter [facility] PRE-ADMIT TESTING [facility] [place] [address] Anticoagulation adequate (Primary Dx); Preop testing; Generalized OA Discharge Disposition: Home or Self Care 01/09/2015 10:15 AM EDT Office Visit [address] [phone] Jovi Villatoro DPM Congenital metatarsus primus varus (Primary Dx) 11/30/2014 5:15 AM EDT - 11/30/2014 11:59 PM EDT Hospital Encounter [facility] PROC[facility] [place] [address] Routine gynecological examination Discharge Disposition: Home or Self Care 11/30/2014 11:00 AM EDT Office Visit [facility] [address] [place] [phone] Maryjane Duron MD Routine gynecological examination (Primary Dx) 10/03/2014 12:30 PM EDT Procedure visit [facility] [address] [place] [phone] Jovi Villatoro DPM Hallux valgus (acquired) (Primary Dx) 09/08/2014 12:00 PM EST Office Visit [address] [place] [phone] Jovi Villatoro DPM Hallux valgus (acquired) (Primary Dx) 08/18/2014 12:00 PM EST Office Visit [facility] [address] [address] Jovi Villatoro DPM Hallux valgus (acquired) (Primary Dx) 08/11/2014 12:00 PM EST Office Visit [address] [phone] Jovi Villatoro, DPM Hallux valgus (acquired) (Primary Dx) 08/02/2014 2:30 PM EST Office Visit [facility] Podiatry [address] [place] [phone] Jovi Villatoro DPM Hallux valgus (acquired) (Primary Dx) 07/25/2014 1:00 PM EST - 07/25/2014 2:50 PM EST Surgery [facility] [address] [place] [address] Jovi Villatoro DPM BUNIONECTOMY TIGHT ROPE PROCEDURE 07/25/2014 11:31 AM EST - 07/25/2014 4:40 PM EST Hospital Encounter [facility] [address] [place] [phone] Jovi Villatoro DPM Discharge Disposition: Home or Self Care 07/19/2014 Orders Only [facility] Anesthesia [facility] [place] [address] Mahesh Russell MD Preop testing (Primary Dx) 03/15/2014 4:15 PM EDT Office Visit [facility] [address] [phone] Jovi Villatoro, OSMIN Hallux valgus, acquired, right (Primary Dx); Other hammer toe (acquired); Bunion, right 11/16/2013 4:15 AM EDT - 11/16/2013 12:29 PM EDT Hospital Encounter [facility] [place] [address] Other screening mammogram; Routine gynecological examination Discharge Disposition: Home or Self Care 11/16/2013 12:30 PM EDT - 11/16/2013 11:59 PM EDT Hospital Encounter [facility] [address] [place] [address] Maryjane Duron MD Post-menopausal (Primary Dx) Discharge Disposition: Home or Self Care 11/16/2013 9:40 AM EDT Office Visit [facility] [address] [place] [address] Maryjane Duron MD Other screening mammogram (Primary Dx); Routine gynecological examination 10/20/2012 2:50 AM EDT - 10/20/2012 11:59 PM EDT Hospital Encounter [facility] [place] [address] Routine gynecological examination Discharge Disposition: Home or Self Care 10/20/2012 9:40 AM EDT Office Visit [facility] [address] [place] [address] Maryjane Duron MD Routine gynecological examination (Primary Dx); Breast cancer (HCC) 08/26/2011 8:00 AM EST - 08/26/2011 10:15 AM EST Surgery [facility] [address] [place] [address] Jovi Villatoro DPM BUNIONECTOMY WITH KYLAH OSTEOTOMY 08/26/2011 6:40 AM EST - 08/26/2011 10:56 AM EST Hospital Encounter [facility] SAME DAY [facility] [address] [place] [address] Jovi Villatoro DPM Discharge Disposition: Home or Self Care 08/23/2011 2:28 PM EST - 08/23/2011 11:59 PM EST Hospital Encounter [facility] E[facility] [address] [place] [address] Jovi Villatoro DPM Discharge Disposition: Home or Self Care 08/23/2011 10:53 AM EST - 08/23/2011 2:27 PM EST Hospital Encounter [facility] PRE-ADMIT TESTING [address] [place] [address] Pat, [facility] Discharge Disposition: Home or Self [...] mouth daily. 30 Tab 6 1 Active [id number] bgp-BuYo-IGt-as b-C (PLENVU) 140-9-5.2 gram Oral Powder in [...] Alive Social History Smoking Status as of 04/01/2025 Tobacco Use Types Packs/Day Years Used Date [...] on file Medical Devices Implanted Type Area Captain Airline Pilot Device Identifier Shelf Expiration Date Model / Serial / Lot Screw Compression Headless Thread Long 3.0 X 22mm - [id number] Implanted:Qty: 1 on 08/26/2011 by Jovi Villatoro DPM at [facility] Left: Toe SYNTHES-STRATEC: SYNTHES [facility] 02.226.12 2 / / Implant Bo Vo, Pro-Toe Size Zero Degrees Large - [id number] Implanted:Qty: 1 on 08/26/2011 by Jovi Villatoro DPM at [facility] Left: Toe 01/24/2019 3090-7579 / / Tightrope Mini Ft - [id number] Implanted:Qty: 1 on 07/25/2014 by Jovi Villatoro DPM at [facility] Right: Foot ARTHREX 04/27/2019 AR-8917DS / / [id number] Kit Disposable Pin Drill Trim-It 2mm X 100mm - [id number] Implanted:Qty: 1 on 07/25/2014 by Jovi Villatoro DPM at [facility] Right: Foot ARTHREX 12/27/2015 AR-4152DS / / [id number] Screw Low Profile Ti 2.4mm X 14mm Cannulated Partial Thread - [id number] Implanted:Qty: 1 on 07/25/2014 by Jovi Villatoro DPM at [facility] Right: Foot ARTHREX AR-8724-1 4PT / / Screw Micro Headless Comp Ft Cannulated Ti 2.5mm X 14mm - [id number] Implanted:Qty: 1 on 07/25/2014 by Jovi Villatoro DPM at [facility] Right: Foot ARTHREX AR-8725-1 4H / / Patella Porous 32mm X 10mm - [id number] Implanted:Qty: 1 on 05/29/2015 by Mahesh Bishop MD at [facility] Left: Knee GREG:GREG 10/28/2019 5878-065- 32 / / [id number] Pros Femoral Porous Cr Nexgen Size C Right - [id number] Implanted:Qty: 1 on 05/29/2015 by Mahesh Bishop MD at [facility] Right: Knee GREG:GREG 05/29/2023 5972-013- / / [id number] Patella Porous 32mm X 10mm - [id number] Implanted:Qty: 1 on 05/29/2015 by Mahesh Bishop MD at [facility] Right: Knee GREG:GREG 11/26/2024 5878-065- 32 / / [id number] Tibia Monoblock Cr Sz-3 10mm - [id number] Implanted:Qty: 1 on 05/29/2015 by Mahesh Bishop MD at [facility] Right: Knee GREG:GREG 09/27/2019 5886-043- / / [id number] Pros Femoral Porous Cr Nexgen Size C Left - [id number] Implanted:Qty: 1 on 05/29/2015 by Mahesh Bishop MD at [facility] Left: Knee GREG:GREG 09/26/2020 5972-013- / / [id number] Tibia Monoblock Cr Sz-3 10mm - [id number] Implanted:Qty: 1 on 05/29/2015 by Mahesh Bishop MD at [facility] Left: Knee GREG:GREG 04/26/2020 5886-043- 10 / / [id number] Lens Intraocular Preloaded 21.5 Diopter - [id number] Implanted:Qty: 1 on 07/31/2020 by Arie Mcnair MD at [facility] Right: Eye [facility]G [id number] 03/24/2023 AU00T0.21 5 / [id number] / Lens Intraocular Preloaded 21.5 Diopter - [id number] Implanted:Qty: 1 on 08/14/2020 by Arie Mcnair MD at [facility] Left: Eye [facility] [id number] 05/26/2023 AU00T0.21 5 / [id number] / Explanted Type Area Captain Airline Pilot Device Identifier Shelf Expiration Date Model / Serial / Lot Wire Guide 1.1mm Non Threaded - [id number] Implanted:08/26 by Jovi Villatoro DPM (Quantity not [...] 11:03 AM EDT Pelvic pain in female ELECTRONEURODIAGNOSTIC TECHNICIAN CYTOLOGY REPORT Routine 12/27/2015 8:14 AM EDT [...] Consult Dictated by Eugene Ramos MD, Dictation# [id number] Active Hospital Problems Diagnosis Primary osteoarthritis of both knees Hypothyroidism GERD (gastroesophageal reflux disease) HTN (hypertension) Resolved Hospital Problems Diagnosis No resolved problems to display. S/p BILATERAL TOTAL KNEE REPLACEMENT 05/29/15 Xarelto. Eugene Ramos ARTHROPLASTY, KNEE, TOTAL, BILATERAL 05/29/2015 12:05 PM EST Primary localized osteoarthrosis, lower leg, left Special Needs CPT;98574 REV; DATE CHG FROM 07/31/15 TO 05/29 [...] 12:46 PM EDT Congenital metatarsus primus varus ELECTRONEURODIAGNOSTIC TECHNICIAN CYTOLOGY REPORT Routine 11/30/2014 5:15 AM EDT [...] metatarsus primus varus Special Needs BETO CPT; 29923/22431/04941 HAMMER TOE REPAIR 07/25/2014 2:10 PM EST Hallux valgus (acquired) Other hammer toe (acquired) Congenital metatarsus primus varus Special Needs BETO CPT; 62212/70842/94976 BUNIONECTOMY TIGHT ROPE PROCEDURE 07/25/2014 2:10 PM EST Hallux valgus (acquired) Other hammer toe (acquired) Congenital metatarsus primus varus Special Needs BETO CPT; 20333/84468/69705 XR FOOT RIGHT AP LATERAL AND OBLIQUE Routine 03/15/2014 5:55 PM EDT Hallux valgus, acquired, right DX BONE DENSITY AXIAL SKELETON Routine 11/16/2013 1:15 PM EDT Post-menopausal ELECTRONEURODIAGNOSTIC TECHNICIAN CYTOLOGY REPORT Routine 11/16/2013 4:15 AM EDT ELECTRONEURODIAGNOSTIC TECHNICIAN CYTOLOGY REPORT Routine 10/20/2012 12:00 AM EDT SCANNED PRE/POST PROCEDURES 07/2011 9:32 PM EST SCANNED ANESTHESIA FORMS 012 9:32 PM EST SCANNED OR REPORT 08/26/2011 11:41 AM EST PATHOLOGY TISSUE REPORT Routine 08/26/19 12 8:45 AM EST EXCISION MASS FOOT/TOE/GANGLION 08/26/2011 8:06 AM EST HALLUX VALGUS HAMMERTOES LEFT Special Needs PHONE BUSYTONYA CPT 55282 56386 [address]69 HAMMER TOE REPAIR 08/26/2011 8:06 AM EST HALLUX ELIOTGUS SIA LEFT Special Needs PHONE EMMY [facility] [phone] BUNIONECTOMY WITH KYLAH OSTEOTOMY 08/26/2011 8:06 AM EST [place] NNAMDI STOVALL LEFT Special Needs PHONE EMMY [facility] [address] EK EKG 12 LEAD Routine 08/23/2011 11:19 [...] Vincenzo Elmore MD 01/08/2023 0743 Hilda Mccainridge TUBE TESTER ENDOSCOPY PROCEDURE ORDERA BLES Final Result * [...] Role Brittani Garcia RN Nurse James Sawyer, NODE JS DEVELOPER NODE JS DEVELOPER Vincenzo Elmore MD Performing Provider Medications See [...] Vincenzo Elmore MD 01/08/2023 0807 Hilda Parish TUBE TESTER ENDOSCOPY PROCEDURE ORDERA BLES Final Result * [facility] PATHOLOGY ORDER (01/08/2023 7:43 AM EDT) Tissue CARDIOESOPHAGEAL JUNCTION STRUCTURE / Unknown 01/08/2023 7:43 AM EDT Tissue specimen (specimen) STOMACH STRUCTURE / Unknown 01/08/2023 7:43 AM EDT Tissue specimen (specimen) TRANSVERSE COLON STRUCTURE / Unknown 01/08/2023 8:07 AM EDT Tissue specimen (specimen) ASCENDING COLON STRUCTURE / Unknown 01/08/2023 8:07 AM EDT Impressions [facility] - 01/08/2023 7:00 PM EDT [...] There is no evidence of malignancy. Narrative [facility] - 01/08/2023 7:00 PM EDT Pathologist: Alber Handley MD Vincenzo Elmore MD VITALAXIS - ORDERABLES Final Result Performing Organization Address [facility] Co de Phone Number [facility] [place] [address] * INTRAOP AIRWAY PLACEMENT (08/14/2020 10:15 AM EST) Narrative [facility] - 08/14/2020 10:15 AM EST Jaquan Wild, NODE JS DEVELOPER 08/14/2020 10:15 AM Intraop Airway Placement: Airway type: Nasal cannula salter Obey Alas MD MT ANESTHESIA Final Resul t Performing Organization Address [facility] Co de Phone Number [facility] [address] [place] [address] * CORONAVIRUS 2019 (08/10/2020 9:44 AM EST) Only the most recent of2 resultswithin the time period is included. CORONAVIRUS [id number] Not Detected Not Detected 08/10/2020 8:16 PM EST [facility] Comment:Caution should be ex ercised when interpreting [...] EST 08/10/2020 9:44 AM EST Narrative PREFERRED [facility] - 08/10/2020 8:16 PM EST This test is a nucleic acid amplification test intended for the qualitative detection of nucleic acid from the SARS-CoV-2 in upper respiratory samples collected from individuals suspected of COVID-19. Test is performed on the riskmethods Flasher platform under the FDA's Emergency Use Authorization (EUA). Hologic Provider Fact Sheet: https://www.fda.gov/media/928323/download Hologic Patient Fact Sheet: https://www.fda.gov/media/607714/download us Arie Mcnair MD MICROBIOLOGY - GENERAL ORDER KARIME Final Result Performing Organization Address [facility] Co de Phone Number [facility] [address] [facility], [place] [address] * SCANNED RADIOLOGY REPORT (08/07/2020 2:58 PM EST) Anatomical Region Laterality Modality Other 08/07/2020 2:58 PM EST us Unknown Unknown IMG DIAGNOSTIC IMAGING ORDERABLE S Final Result * INTRAOP AIRWAY PLACEMENT (07/31/2020 10:32 AM EST) Narrative [facility] - 07/31/2020 10:32 AM EST Anuja West, NODE JS DEVELOPER 07/31/2020 10:32 AM Intraop Airway Placement: Airway type: Nasal cannula salter us Mitch Allan IV, MD MT ANESTHESIA Final Re sult Performing Organization Address [facility] Co de Phone Number [facility] [address] [place] [address] * MO US VISCERAL VASCULAR COMPLETE (07/11/2020 10:27 AM [...] 10:45 AM CLINICAL HISTORY: M25.562-Pain in left [id number]-UOE-47-CM COMPARISON: Radiographs 02/02/2020, CT 03/12/2020 PROCEDURE COMMENTS: [...] 10:45 AM CLINICAL HISTORY: M25.562-Pain in left [id number]-CCM-99-CM COMPARISON: Radiographs 02/02/2020, CT 03/12/2020 PROCEDURE COMMENTS: [...] 10:45 AM CLINICAL HISTORY: M25.561-Pain in right lgsz-RVY-55-CM COMPARISON: Radiographs 02/02/2020, CT 03/12/2020 PROCEDURE COMMENTS: [...] 10:45 AM CLINICAL HISTORY: M25.561-Pain in right ujrj-GUY-34-CM COMPARISON: Radiographs 02/02/2020, CT 03/12/2020 PROCEDURE COMMENTS: [...] of2 resultswithin the time period is included. [facility] Sed Rate 11 0 - 30 mm/hr 03/15/2020 4:48 PM EDT [facility] Blood Venipuncture / Unknown 03/15/2020 10:02 AM EDT 03/15/2020 10:02 AM EDT Mahesh Bishop MD HEMATOLOGY ORDERABLES Fi nal Result [facility] [address] [place] [address] , [place] [address] * CBC WITH DIFF (03/15/2020 10:02 AM EDT) Only the most recent of4 resultswithin the time period is included. Pathologist [facility] WBC 6.0 3.7 - 10.3 x10(3)/mcL 03/15/2020 [...] 3:49 PM EDT [facility] [place] Percent 9.9 % 03/15/2020 3:49 PM EDT [...] - 0.1 x10(3)/mcL 03/15/2020 3:49 PM EDT [facility], [facility] Comment:Automated count of m etamyelocytes, myelocytes and promyelocytes. An absolute IG <0.1 is reported as 0.0. Lymph # 1.3 1.2 - 3.9 x10(3)/mcL 03/15/2020 3:49 PM EDT [facility] [place] # 0.6 0.3 - 0.9 x10(3)/mcL 03/15/2020 3:49 PM EDT [facility], [facility] Eos# 0.1 0.0 - 0.5 x10(3)/mcL 03/15/2020 3:49 PM EDT [facility]ERRED [facility] [employer], [facility] Baso # 0.0 0.0 - 0.1 x10(3)/mcL 03/15/2020 3:49 PM EDT [facility] [employer], [facility] Blood Venipuncture / Unknown 03/15/2020 10:02 AM EDT 03/15/2020 10:02 AM EDT us Mahesh Bishop MD HEMATOLOGY ORDERABLES Fi nal Result Performing Organization Address [facility] Co de Phone Number [facility] [employer] [address] , [place] [address] * C-REACTIVE PROTEIN (03/15/2020 10:02 AM EDT) Only the most recent of2 resultswithin the time period is included. [facility] CRP 1.76 <=5.00 mg/L 03/15/2020 4:32 PM EDT [facility] [employer], [facility] Blood Venipuncture / Unknown 03/15/2020 10:02 AM EDT 03/15/2020 10:02 AM EDT Mahesh Bishop MD CHEMISTRY ORDERABLES Fin al Result Performing Organization Address [facility] Co de Phone Number [facility] [employer] [address] [place] [address] * DX BONE DENSITY AXIAL SKELETON (01/07/2017 3:30 PM EDT) Only the most recent of2 resultswithin the time period is included. Anatomical Region Laterality Modality Dexa Scan 01/07/2017 Narrative 01/07/2017 4:29 PM EDT Indication: The patient is presently being monitored while on treatment and requires a bone density assessment. Study was performed on [employer] 3.2. Bone Density: Region BMD T-score Z-score [...] of3 resultswithin the time period is included. [facility] Troponin-T <0.01 <=0.00 ng/mL [facility] Comment: Values > or = 0.01 ng/mL have been shown to have prognostic value. Blood specimen (specimen) 11/05/2016 2:00 AM EDT 11/05/2016 2:08 AM EDT Pablo Smith MD CHEMISTRY ORDERABLES Final Result Performing Organization Address City/[facility] Co de Phone Number [facility] [address] [place] [address] * (ABNORMAL) D-DIMER (11/04/2016 11:57 PM EDT) [facility] D-Dimer 318(H) <=230 ng/mL D-DU [facility] Comment: This test has been clinically validated by the semiconductor lab technician and approved by the FDA for exclusion [...] HEMATOLOGY ORDERABLES Final Result Performing Organization Address City/[facility]/ZIP Co de Phone Number [facility] [address] [place] [address] * DIFFERENTIAL (11/04/2016 11:50 PM EDT) Only the most recent of3 resultswithin the time period is included. Pathologist [facility] Neut Percent 63.1 % [facility] Lymph Percent 23.2 % [facility] [place] Percent 11.6 % [facility] Eos Percent 1.3 % [facility] Baso Percent 0.8 % [facility] Neut# 5.5 1.8 - 7.7 x10(3)/[facility] Lymph# 2.0 0.6 - 4.8 x10(3)/mcL [facility] [place]# 1.0 0.0 - 1.3 x10(3)/[facility] Eos# 0.1 0.0 - 0.5 x10(3)/[facility] Baso# 0.1 0.0 - 0.2 x10(3)/[facility] Blood specimen (specimen) 11/04/2016 11:50 PM EDT 11/05/2016 12:02 AM EDT [facility] HEMATOLOGY ORDERABL ES Final Result Performing Organization Address City/State/[facility] [place] [address] * BASIC METABOLIC PANEL (11/04/2016 11:50 PM EDT) Only the most recent of4 resultswithin the time period is included. Sodium 139 136 - 145 mmol/L [facility] Potassium 4.0 3.5 - 5.0 mmol/L [facility] Chloride 100 98 - 107 mmol/L [facility] Total CO2 25 22 - 29 mmol/L [facility] Anion Gap 14 7 - 16 mmol/L [facility] Calcium 9.6 8.8 - 10.2 mg/dL [facility] Glucose Lvl 88 82 - 100 mg/dL [facility] BUN 17 8 - 23 mg/dL [facility] Creatinine 0.87 0.51 - 1.30 mg/dL [facility] GFR Afr Am >60 [facility] GFR Non Afr Am >60 [facility] Blood specimen (specimen) UPPER LIMB STRUCTURE / Unknown 11/04/2016 11:50 PM EDT 11/05/2016 12:02 AM EDT us Pablo Smith MD CHEMISTRY ORDERABLES Edited Result - Final [facility] [place] [address] [address] * XR CHEST PA AND LATERAL (11/04/2016 [...] unremarkable. IMPRESSION: No acute findings. us Pablo Smtih MD IMG DIAGNOSTIC IMAGING ORDE RABLES Final Result * EK EKG 12 LEAD (11/04/2016 10:36 PM EDT) Only the most recent of4 resultswithin the time period is included. Anatomical Region Laterality Modality Electrocardiogra phy 11/04/2016 10:4 2 PM EDT Impressions 11/05/2016 10:16 PM EDT Stationary ECG Study [facility] Interpretive Statements SINUS RHYTHM Nonspecific STT changes [...] 12/28/2015 12:21 PM History: R10.2-Pelvic and perineal qxif-KDI-47-CM Comparison: None Transabdominal and transvaginal imaging Findings: [...] 12/28/2015 12:21 PM History: R10.2-Pelvic and perineal tejk-QVG-00-CM Comparison: None Transabdominal and transvaginal imaging Findings: [...] IMG US ORDERABLES Final R esult * ELECTRONEURODIAGNOSTIC TECHNICIAN CYTOLOGY REPORT (12/27/2015 8:14 AM EDT) Only the most recent of4 resultswithin the time period is included. Wellness Director Cytology Report PATIENT NAME:SHIRIN DOVE Wellness Director Cytology Report Accession Number Collected Date/Time Received Date/Time [id number] 12/27/15 08:14 EDT 12/27/15 15:44 EDT GY [...] before definitive therapy. Processed using the ThinPrep Gill Box Fixer automated cytology screening device (MixRank). Pattern Cleaner: LUCY 12/28/2015 Completed by: Adali Allison (Electronically signed by) 12/28/2015 [facility] Laboratory [facility] 12/27/2015 8:14 AM EDT us Maryjane Duron MD PATHOLOGY ORDERABLES Daina l Result [facility] [address] [place] [address] * SCANNED RHYTHM STRIPS (06/05/2015 11:02 AM [...] included. Hgb 10.7(L) 12.0 - 15.6 gm/dL [facility] Hct 31.1(L) 35.7 - 45.9 % [facility] Blood specimen (specimen) 06/01/2015 5:27 AM EST 06/01/2015 5:55 AM EST Narrative [facility] - 06/01/2015 6:09 AM EST Call MD if Hct is less than 28 us Mahesh Bishop MD HEMATOLOGY ORDERABLES Fi nal Result Performing Organization Address City/State/[facility] [place] [address] * NM LUNG SCAN PERFUSION ONLY (05/31/2015 [...] EST) Final No growth at 2 days. [facility] Urine specimen (specimen) 05/31/2015 12:32 PM EST 05/31/2015 2:10 PM EST Octavia Ramos MD MICROBIOLOGY - GENERAL ORDER [place] [address] * (ABNORMAL) URINALYSIS (05/31/2015 12:32 PM EST) Only the most recent of2 resultswithin the time period is included. UA Color Yellow [facility] UA Appear Hazy(A) Clear [facility] UA Glucose Negative Negative [facility] UA Ketones Trace (5 mg/dl)(A) Negative [facility] UA Blood Negative Negative [facility] UA pH 6.0 4.8 - 8.0 [facility] Comment:Reference range emily d for random specimens only. UA Protein Negative Negative [facility] UA Urobilinogen Normal <=1 mg/dl [facility] UA Nitrite Negative Negative [facility] UA Leuk Est Negative Negative [facility] UA Spec Grav 1.009 1.001 - 1.035 [facility] Comment:Reference range emily d for random specimens only. UA WBC <1 0 - 4 /HPF [facility] UA Mucus Trace [facility] UA Hyal Cast 1 0 - 2 /LPF [facility] UA Trans Epi <1 /HPF [facility] Urine specimen (specimen) STRUCTURE OF URINARY TRACT PROPER / Unknown 05/31/2015 12:32 PM EST 05/31/2015 12:39 PM EST us Octavia Ramos MD URINE ORDERABLES Final Resul t Performing Organization Address City/[facility]/[place] [address] * (ABNORMAL) CBC (05/31/2015 9:57 AM EST) WBC 12.0(H) 4.0 - 11.0 x10(3)/mcL [facility] RBC 3.56(L) 3.80 - 5.10 x10(6)/mcL [facility] Hgb 10.9(L) 12.0 - 15.6 gm/dL [facility] Hct 31.8(L) 35.7 - 45.9 % [facility] MCV 89.4 82.5 - 99.8 fL [facility] MCH 30.5 27.0 - 34.3 pg [facility] MCHC 34.1 32.1 - 35.3 gm/dL [facility] RDW 12.8 11.5 - 15.0 % [facility] Platelet 168 144 - 423 x10(3)/mcL [facility] MPV 8.9 6.8 - 10.8 fL [facility] Blood specimen (specimen) UPPER LIMB STRUCTURE / Unknown 05/31/2015 9:57 AM EST 05/31/2015 10:03 AM EST Octavia Ramos MD HEMATOLOGY ORDERABLES Final Result Performing Organization Address City/[facility]/[place] [address] * (ABNORMAL) NT PROBNP (05/31/2015 9:57 AM EST) NT Pro-BNP 840(H) <=319 pg/mL [facility] Comment: An NT pro-BNP level less than 300 pg/mL in any patient, regardless of age, Effectively rules out acute CHF with a 99% negative predictive value. Blood specimen (specimen) UPPER LIMB STRUCTURE / Unknown 05/31/2015 9:57 AM EST 05/31/2015 10:03 AM EST Octavia Ramos MD CHEMISTRY ORDERABLES Final R esult Performing Organization Address City/[facility]/ZIP Co de Phone Number [facility] [address] [place] [address] * (ABNORMAL) BLOOD GAS ARTERIAL (05/31/2015 9:57 AM EST) Pathologist [facility] pH 7.410 7.370 - 7.440 [facility] pCO2 48(H) 32 - 45 mmHg [facility] pO2 115(H) 80 - 95 mmHg [facility] HCO3 30(H) 20 - 29 mmol/L [facility] TCO2 32(H) 21 - 30 mmol/L [facility] Base Excess 4.8(H) -2.8 - 2.3 mEq/L [facility] O2 Sat 99(H) 95 - 97 % [facility] Inspired O2 3.5L [facility] Specimen Type Arterial [facility] Blood specimen (specimen) UPPER LIMB STRUCTURE / Unknown 05/31/2015 9:57 AM EST 05/31/2015 10:03 AM EST Octavia Ramos MD CHEMISTRY ORDERABLES Final R esult Performing Organization Address City/[facility]/ZIP Co de Phone Number [facility] [address] [place] [address] * XR CHEST AP PORTABLE (05/31/2015 9:46 [...] identified in the chest. Octavia Ramos MD [facility] DIAGNOSTIC IMAGING ORDER KARIME Final Result * [...] MD BLOOD BANK ORDERABLES Fi nal Result [facility] [address] [place] [address] * STAPHYLOCOCCUS AUREUS SCREEN (05/22/2015 1:20 PM EDT) Final No growth of Staphylococcus aureus [facility] Specimen from nose (specimen) 05/22/2015 1:20 PM EDT 05/22/2015 1:30 PM EDT us Mahesh Bishop MD MICROBIOLOGY - GENERAL O RDERABLES Final Result [facility] [address] [place] [address] * ABORH (05/22/2015 1:20 PM EDT) ABOR Int O POS [facility] Blood specimen (specimen) 05/22/2015 1:20 PM EDT 05/22/2015 1:23 PM EDT us Mahesh Bishpo MD BLOOD BANK ORDERABLES Fi nal Result Performing Organization Address [facility] de Phone Number [facility] [address] [place] [address] * (ABNORMAL) PARTIAL THROMBOPLASTIN TIME (05/22/2015 1:20 PM EDT) PTT 36.0(H) 26.7 - 35.9 second(s) [facility] Comment: Therapeutic range for direct thrombin inhibitors: [...] ORDERABLES Fi nal Result Performing Organization Address [facility] de Phone Number [facility] [address] [place] [address] * PT / INR (05/22/2015 1:20 PM EDT) PT 11.1 9.3 - 12.3 second(s) [facility] INR 1.04 0.87 - 1.15 [facility] Comment: Level of Therapy Indications Target INR Range Standard Dose Treatment and prophylaxis of venous 2.0 - 3.0 thrombosis, pulmonary embolism High Dose High risk patients with mechanical 2.5 - 3.5 heart valves Blood specimen (specimen) 05/22/2015 1:20 PM EDT 05/22/2015 1:24 PM EDT us Mahesh Bishop MD HEMATOLOGY ORDERABLES Fi nal Result Performing Organization Address [facility]/State/ZIP Co de Phone Number [facility] [address] [place] [address] * ANTIBODY SCREEN IGG (05/22/2015 1:20 PM EDT) ABSC IgG Int Negative [facility] Blood specimen (specimen) 05/22/2015 1:20 PM EDT 05/22/2015 1:23 PM EDT us Mahesh Bishop MD BLOOD BANK ORDERABLES Fi nal Result [facility] [address] [place] [address] * XR FOOT RIGHT AP LATERAL AND [...] Report Accession Number Collected Date/Time Received Date/Time [id number] 08/26/11 08:45 EST 08/26/11 13:20 EST Diagnosis Ganglion cyst, excision: - Benign synovial cyst. JOELLE PORTER MD (Electronicall y signed by) Verified: 08/27/2011 [facility] Laboratory Clinical Information Hallux valgus hammertoe left Gross Description Received in formalin labeled with the patient's name and ganglion cyst are 3 pieces of pale mtz irregular tissues, 0.5 x 0.5 x 0.3 cm to 1.0 x 0.6 x 0.5 cm. Sectioning reveals mtz rubbery tissue with possible small cyst. The specimen is entirely submitted in one cassette./[place] MR /ADNREAS Microscopic Description Microscopic examination is performed and the findings corroborate the diagnosis. [facility] 08/26/2011 8:45 AM EST us Jovi Villatoro DPM PATHOLOGY ORDERABLES Final Result Performing Organization Address City/State/[facility] Co de Phone Number [facility] [address] [place] [address] Visit Diagnoses Diagnosis Start Date Routine gynecological [...] hypertension Unspecified essential hypertension 05/29/2015 Care Teams Music Writer Relationship Specialty Start Date End Date Alber Phillips [address] [place] [address] PCP - General Family Medicine 03/14/20
--- OUTSIDE RECORDS SUMMARY | 2025-04-01 15:26 | XMS_ITS | Clinical Summary ---
Author Organization [facility] Address Formerly named [facility] [place] [address] Care Team Providers Care Hand Trimmer Name Role Phone Mckayla Larry MD Unavailable [phone] Rachel Barrow MD Unavailable [phone] Rachel Barrow MD Unavailable [phone] Leslee Hunter [employer] Unavailable [phone] Gianna Bullard RN Unavailable Unavaila Rachel Mistry MD Unavailable Nohemyi Kathy Breen MD Unavailable [phone] Zhane Baker Unavailable Stefan John MD Unavailable [phone] Jerri Colvin Primary Care Provider [phone] Source Comments This information has been disclosed [...] therelease of HIV test results or diagnoses. [id number] Allergies Active Allergy Reactions Criticality Noted [...] EDT 1 Active naloxone (NARCAN) 4 mg/actuation [place] Apply 1 spray in one nostril if [...] 01/25/2021:Stage 0(cTis (DCIS), cN0, cM0, G3, ER-, [place]-, HER2: Not Assessed) - Signed by Rachel [...] history exists Medical Devices Implanted Type Area [employer] Device Identifier Shelf Expiration Date Model / Serial / Lot Business Applications Developer Anastomosis Qulin Microvascular Stainless Steel Titanium Od2 Mm Ring Pin Protective Cover Jaw Assembly Sterile Latex Free Disposable - [id number] Implanted:Qty: 1 on 04/10/2021 by Rachel Bolanos MD at [facility] Other Left: Breast [employer] 08/29/2025 [id number] / / [id number] Business Applications Developer Anastomosis Qulin Stainless Steel Polyethylene Od2.5 Mm Microvascular Ring Pin Protective Cover Jaw Assembly Sterile Latex Free Disposable - [id number] Implanted:Qty: 1 on 04/10/2021 by Rachel Bolanos MD at [facility] Other Left: Breast [employer] 07/25/2025 [id number] / / [id number] Business Applications Developer Anastomosis Qulin Stainless Steel Polyethylene Od2.5 Mm Microvascular Ring Pin Protective Cover Jaw Assembly Sterile Latex Free Disposable - [id number] Implanted:Qty: 1 on 04/10/2021 by Rachel Barrow MD at [facility] Other Right: Breast [employer] 07/25/2025 [id number] / / [id number] Procedures Procedure Name Priority Date/Time Associated Diagnosis [...] - 33 mmol/L 03/30/2023 11:03 AM EDT [facility] Anion Gap 9 3 - 16 mmol/L 03/30/2023 11:03 AM EDT [facility] BUN 17 7 - 25 mg/dL 03/30/2023 11:03 AM EDT [facility] Creatinine 0.82 0.60 - 1.30 mg/dL 03/30/2023 11:03 AM EDT [facility] Glucose 91 70 - 100 mg/dL 03/30/2023 11:03 AM EDT [facility] Calcium 9.4 8.6 - 10.3 mg/dL 03/30/2023 11:03 AM EDT [facility] Osmolality, Calculated 285 278 - 305 mOsm/kg 03/30/2023 11:03 AM EDT [facility] EGFR 74 03/30/2023 11:03 AM EDT [facility] Comment:As of 2021, the estimated GFR [...] MD LAB BLOOD ORDERABLES Final R esult [facility] [address] [place] [address], [facility] * TSH (Thyroid Stimulating Hormone) (11/23/2013 12:37 PM EDT) TSH 1.28 0.45 - 4.50 mIU/L 11/23/2013 3:08 PM EDT [facility] Serum specimen (specimen) 11/23/2013 12:37 PM EDT 11/23/2013 1:41 PM EDT Mckayla Larry MD LAB BLOOD ORDERABLES Final Res ult [facility] [address] [place] [address], [facility] from Last 3 Months or Most Recently Relevant to Health [place] [address] Advance Directives For more information, please contact: [phone] Documents on File Type Date Recorded Patient Collar Stitcher Expl anation Advance Directive - scan 01/03/2012 2:24 PM * Full Code (Latest Code Status on File) Date Activated Date Inactivated Comments 04/10/2021 7:11 PM 04/14/2021 7:09 PM Care Teams Hand Trimmer Relationship Specialty Start Date End Date Jerri Colvin [address] [place] [address] [place] [address] [place] [address] PCP - General 09/13/21 Mckayla Larry MD Medical Oncologist Breast Oncology 06/02/12 Rachel Barrow MD Surgical Oncologist Breast Surgery 01/25/21 Rachel Barrow MD Initiating Oncologist Surgical Oncology 01/25/21 Leslee Hunter, CLINICAL MEDICAL TRANSCRIPTIONIST [address] [place] [address] Nurse Practitioner Surgical Oncology 01/25/21 Gianna Bullard, RN Registered Nurse Breast Surgery 01/25/21 Rachel Bolanos MD Surgical Oncologist Plastic Surgery 01/31/21 Kathy Payne MD [address] [place] [id number] Surgical Oncologist Breast Oncology 04/20/21 Zhane Baker [address] [place] [phone] Nurse Practitioner [facility] 04/26/21 Stefan John MD [address] [facility] [place] [address] Surgical Oncologist Plastic Surgery 08/29/21
--- OUTSIDE RECORDS SUMMARY | 2025-04-01 15:26 | XMS_ITS | Encounter Summary ---
Author Organization [facility] Address [facility] [place] [address] Care Team Providers Care Business Risk Consultant Name Role Phone Mckayla Larry MD Unavailable [phone] System, Provider Not In Primary Care Provider Un available Pcp, No Primary Care Provider [phone] -[phone] Alber Phillips MD Primary Care Provider [phone] Pcp, No Primary Care Provider +[phone] -0000 Rachel Barrow MD Unavailable [phone] Rachel Barrow MD Unavailable [phone] Leslee Hunter CNP Unavailable [phone] Gianna Bullard RN Unavailable UnavailRachel Quintana MD Unavailable Cristobal troncoso Unknown, Attending Provider Primary Care Provide r Unavailable Pcp, No Primary Care Provider +[phone] -0000 Kathy Payne MD Unavailable [phone] Zhane Baker Unavailable Pcp, No Primary Care Provider [phone] Stefan John MD Unavailable [phone] Jerri Colvin Primary Care Provider [phone] Source Comments This information has been disclosed [...] release of HIV test results or diagnoses. [id number] Reason for Referral * Diagnostic Imaging (Routine) - Closed Specialty Diagnoses / Procedures Referred By Contcynthia t Referred To Contact Diagnoses Visit for screening mammogram Procedures Mammography Screening Bilateral incl CAD Jerri Colvin [address] [place] [address] [place] [address] Phone: tel: fax: Referral ID Status Reason Start Date Expiration Date Visits Re quested Visits Authorized [id number] Closed 12/16/2018 06/14/2019 1 1 Encounter Details Date Type Department Care Team (Late st Contact Info) Description 12/16/2018 Orders Only [address] [address] Jerri Colvin [address] [place] [address] [place] [id number] Visit for screening mammogram (Primary Dx) Social [...] mammogram documented in this encounter Care Teams Business Risk Consultant Relationship Specialty Start Date End Date System, Provider Not In PCP - General 06/04/17 12/23/18 Pcp, No No Address PCP - General Pediatrics 12/24/18 01/15/21 Alber Phillips MD [address] [place] [address] PCP - General Family Medicine 01/16/21 01/24/21 Pcp, No No Address PCP - General 01/25/21 02/01/21 Unknown, Attending Provider PCP - General 02/02/21 04/17/21 Pcp, No No Address PCP - General 04/18/21 05/16/21 Pcp, No [address] [place] [place] [address] PCP - General 05/17/21 09/12/21 Jerri Colvin [address] [address] [place] [address] PCP - General 09/13/21 Mckayla Larry MD Medical Oncologist Breast Oncology 06/02/12 Rachel Barrow MD [address] [place] [address] Surgical Oncologist Breast Surgery 01/25/21 Rachel Barrow MD [address] [place] [address] Initiating Oncologist Surgical Oncology 01/25/21 Leslee Hunter CNP [address] [place] [phone] Nurse Practitioner Surgical Oncology 01/25/21 Gianna Bullard, RN Registered Nurse Breast Surgery 01/25/21 Rachel Bolanos MD Surgical Oncologist Plastic Surgery 01/31/21 Kathy Payne MD [address] [place] [address] Surgical Oncologist Breast Oncology 04/20/21 Zhane Baker [address] [place] [phone] Nurse Practitioner [facility] 04/26/21 Stefan John MD [address] [facility] [place] [address] Surgical Oncologist Plastic Surgery 08/29/21 documented as of this encounter
--- NOTE | 2025-04-01 15:34 | XR_ITS ---
FINAL REPORT CLINICAL HISTORY: constipation FINDINGS: A single supine view the abdomen was obtained. The bowel gas pattern is nonspecific but nonobstructive. There is a large amount of stool in the rectum. Moderate amount of stool is seen in the ascending colon. There are no pathologic calcifications. Osseous structures are within normal limits. IMPRESSION: Constipation. Reviewed, Interpreted and Dictated by Delphine Gaxiola MD Transcribed by Claire Dixon Authenticated and [facility]
--- NOTE | 2025-04-01 15:36 | HMH.EDGENADL ---
Discharge Plan Disposition Patient Disposition: Home, Self-Care Prescriptions Prescriptions: No Action ondansetron HCl 8 mg tablet 8 mg PO Q12H PRN (Reason: nausea and vomiting) Qty: 10 0RF levocetirizine 5 mg tablet 5 mg PO DAILY doxycycline hyclate 100 mg capsule 100 mg PO BID 7 Days Qty: 14 0RF famotidine 40 mg tablet 40 mg PO DAILY Qty: 30 0RF triamcinolone acetonide 0.1 % cream 1 applic topical TID Qty: 80 0RF methylprednisolone [Medrol (Alfie)] 4 mg tablets,dose pack See Rx Instructions PO PER PKG DIR Qty: 21 0RF Rx Instructions: PO PER PKG DIR for 6 days levocetirizine [Xyzal] 5 mg tablet 5 mg PO DAILY Qty: 30 2RF lisinopril 40 mg tablet 40 mg PO DAILY Qty: 90 1RF omeprazole 20 mg capsule,delayed release(DR/EC) 20 mg PO DAILY 90 Days Qty: 90 3RF carvedilol 12.5 mg tablet 12.5 mg PO DAILY Qty: 90 2RF levothyroxine 25 mcg tablet 25 mcg PO DAILY Qty: 90 1RF hydrochlorothiazide 25 mg tablet 25 mg PO DAILY Qty: 90 1RF rosuvastatin 10 mg tablet 10 mg PO DAILY Qty: 90 1RF venlafaxine 75 mg capsule,extended release 24hr See Rx Instructions .ROUTE .COMPLEX Qty: 90 3RF Dose Instruction: TAKE 1 CAPSULE BY MOUTH DAILY Rx Instructions: TAKE 1 CAPSULE BY MOUTH DAILY Referrals Follow up/Referrals: Jerri Colvin APRN [Primary Care Provider, Medical] - See instructions Activity Restrictions/Add. Instructions Additional Instructions/Restrictions: Please escalate MiraLAX at home take half a cap twice a day escalating and doubling the dose every 3 days until you have bowel movements the consistency of soft serve ice cream daily then stay on this dose for at least 2 weeks. Clinical Impressions Clinical Impression: Constipation Instructions Patient Instructions: DI for Acute Abdominal Pain Print Language Print Language: Tuvaluan Discharge ED Provider: Charlotte Duron General Adult HPI General Chief complaint: Abdominal Pain Stated complaint: HBP,allergic reaction to med,constipation Time Seen by Provider: 04/01/25 15:28 Mode of Arrival: Ambulatory Source of Information: Patient Description of Symptoms (Recalled from ER Triage Doc. by RN): patient presents to the ED with a chief complaint of severe constipation. patient noted to be hypertensive at 234/88. BP checked multiple times both arms with similar reading. patient stating it hurts to sit due to the constipation. History of Present Illness HPI narrative: Patient is a 79-year-old female presents today with constipation. No abdominal pain nausea and vomiting etc. She states that she does have a history of hypertension and when she is uncomfortable her blood pressure shoots up. No other significant past medical problems. She states that she was recently on an antibiotic and some steroids for some facial erythema and that she attributes her constipation worsening to these medications she has not been on any antihistamines or any other medications known to cause constipation to her knowledge. States if she can have a bowel movement she feels that she would feel a lot better. She has tried Colace at home and some suppositories without any improvement. Related Data Home Medications ?Medication ?Instructions ?Recorded ?Confirmed levocetirizine 5 mg tablet 5 mg PO DAILY 03/03/24 04/01/25 Previous Rx's ?Medication ?Instructions ?Recorded carvedilol 12.5 mg tablet 12.5 mg PO DAILY #90 tabs 12/28/24 hydrochlorothiazide 25 mg tablet 25 mg PO DAILY #90 tabs 12/28/24 levothyroxine 25 mcg tablet 25 mcg PO DAILY thyroid #90 tabs 12/28/24 lisinopril 40 mg tablet 40 mg PO DAILY #90 tabs 12/28/24 omeprazole 20 mg capsule,delayed 20 mg PO DAILY 90 days #90 caps 12/28/24 release rosuvastatin 10 mg tablet 10 mg PO DAILY #90 tabs 12/28/24 venlafaxine 75 mg capsule,extended See Rx Instructions .Route 03/07/25 release 24 hr .COMPLEX #90 caps ondansetron HCl 8 mg tablet 8 mg PO Q12H PRN nausea and 03/11/25 vomiting #10 tabs doxycycline hyclate 100 mg capsule 100 mg PO BID 7 days #14 caps 03/29/25 famotidine 40 mg tablet 40 mg PO DAILY #30 tabs 03/29/25 levocetirizine 5 mg tablet (Xyzal) 5 mg PO DAILY #30 tabs 03/29/25 methylprednisolone 4 mg tablets in See Rx Instructions PO PER PKG DIR 09/02/25 a dose pack (Medrol (Alfie)) #21 tabs triamcinolone acetonide 0.1 % 1 applic topical TID #80 grams 03/29/25 topical cream Allergies Allergy/AdvReac Type Severity Reaction Status Date / Time No Known Allergies Allergy Verified 04/01/25 14:40 [facility] Disclaimer: The information contained in this section may have been updated after the patient was seen, as this information can be updated by other users. Medical History Diverticulosis Bunion of great toe of right foot Bunion of left foot Seasonal allergies Post-nasal drip Hypothyroidism Hypertension Surgical History History of tonsillectomy History of left knee replacement History of right knee joint replacement History of abdominoplasty H/O mastectomy Family History Mother Cancer colon Thyroid disorder Sister Thyroid disorder Brother Cancer colon Social History Smoking Status: Never smoker alcohol intake: never current occupational status: retired Travel in the last 8 weeks?: None Have you lived/traveled outside US in past 30 days?: No Contact w/someone who lives/traveled outside US past 30 days?: No Exposure to someone with infectious disease in past 14 days?: No Do you have a fever (greater than 100.4 F or 38 C)?: No Have you tested positive for COVID-19?: No Exposed to someone with COVID-19 in past 14 days?: No Do you have a sore throat?: No Do you have a cough?: No Do you have any weakness?: No Do you have any diarrhea?: No Are you experiencing any unusual bleeding?: No Do you have any muscle aches/pain?: No Do you have any abdominal pain?: No Are you experiencing loss of taste or smell?: No Other Medical History Have you received the Flu Vaccine for this season: No Have you received the Pneumonia Vaccine: Yes ROS Obtained: Yes All systems reviewed & no additional complaints except as documented Physical Exam General General appearance: alert and in no apparent distress Respiratory Respiratory exam: Present normal lung sounds bilaterally Cardiovascular Cardiovascular exam: Present regular rate Abdominal Exam Abdominal exam: Present soft; Absent distention or tenderness Neurological Exam Neurological exam: Present alert and oriented X3 Medical Decision Making Medical Records Screening: Per USPSTF and CDC recommendations, given the prevalence of disease in our region, it is our hospital?s policy to screen for HIV and viral Hepatitis for all patients aged 18 and over and those with ongoing risk factors. Jose Inquiry Pt receiving controlled substance: No Jose was queried for this patient: No Risks and benefits of using a controlled substance: were not discussed with pt by me Vital Signs: 04/01/25 15:14 04/01/25 15:45 04/01/25 16:39 Temperature 97.8 F Temperature Source Oral Pulse Rate 61 74 Pulse Rate [Left Radial] 72 Respiratory Rate 18 20 Blood Pressure 194/98 H 224/102 H Blood Pressure [Left Arm] 232/116 H Blood Pressure [Right Arm] 234/88 H Blood Pressure Mean 142 Blood Pressure Mean [Left Arm] 154 Blood Pressure Mean [Right Arm] 136 Blood Pressure Source [Left Arm] Automatic Cuff Blood Pressure Source [Right Arm] Automatic Cuff Blood Pressure Position [Left Arm] Sitting Blood Pressure Position [Right Arm] Sitting 02 Sat by Pulse Oximetry 98 97 97 Oxygen Delivery Method Room Air Orders (Tests/Meds): ORDERS Category Date Time Status KUB (single view) [XR KUB] Stat Exams 04/01/25 15:34 Completed Medical Decision Narrative: Patient is very uncomfortable but has no abdominal tenderness or abdominal pain on exam she just feels like she needs to have a bowel movement she is significantly hypertensive which I believe is secondary to her discomfort at the moment. Will get a KUB and proceed with an enema no labs or CT imaging or intervention of her blood pressure at the moment as she has no clinical signs or symptoms of endorgan damage. Will reassess after enema administration and bowel movement. KUB performed to person interpreted shows significant stool burden but no other acute abnormalities patient felt significantly better after her enema serial abdominal exams are benign she has been advised to escalate MiraLAX and discharged in stable condition with return precautions for size. Critical Care Critical Care Time Critical Care Time: No
[2025-04-01 15:45] VITALS: BP 194/98; PULSE 61; O2SAT 97
[2025-04-01 16:39] VITALS: BP 224/102; PULSE 74; RESP 20; O2SAT 97
--- NOTE | 2025-04-01 16:41 | PC.NURSE ---
pt received soad suds enema and was unable to hold the enema in for very long. some stool noted. going to let pt rest for a little bit per her request and try again. er md aware.
--- NOTE | 2025-04-01 16:52 | PC.NURSE ---
pt was able to pass a xlarge bm and states she feels so much better. er aware.
[2025-04-01 17:33] VITALS: BP 158/87; PULSE 64; RESP 18; TEMP 36.8; O2SAT 97
== END 2025-04-01 17:34 | disposition home or self-care (01) ==
LOC: ER 15:32 → CATHLAB 17:12 → ER 17:25
PROVIDERS: Emergency Provider Student in an Organized Health Care Education/Training Program; PCP Nurse Practitioner Family
DX: K59.00 Constipation, unspecified (principal); I10 Essential (primary) hypertension
CPT/HCPCS: 74018; 99283; 99284

== ENCOUNTER 2025-07-20 08:57 | Outpatient (CLI) | payer MEDICARE, SELFPAY ==
--- OUTSIDE RECORDS SUMMARY | 2016-03-12 09:16 | XMS_ITS | Encounter Summary ---
Author Organization [place] [address] Care Team Providers Care Dental Secretary Name Role Phone Duarte Romo MD, Mahesh Sandoval Primary Care Provid er Encounter Details Date Type Department Care Team (Latest Contact Info) Description 03/12/2016 10:16 AM EDT Hospital Encounter SE Referral Lab 1 [place], [place] [id number] Mahesh Bishop MD [address] [place] [address] Pain in right knee; Pain in left knee Social History Tobacco Use Types Packs/Day Years Used Date Smoking Tobacco: Never Smokeless Tobacco: Never Alcohol Use Standard Drinks/Week Comments No 0 (1 standard drink = 0.6 oz pur e alcohol) Sexually Active Control Partners Comments Not Currently Comments No Sex and Gender Information Value Date Recorded Sex Assigned at Not on file Legal Sex Female 5:13 AM EDT Gender Identity Not on file Sexual Orientation Not on file COVID-19 Exposure Response Date Recorded In the last month, have you been in contact with someone who was confirmed or suspected to have Coronavirus / COVID-19? No / Unsure 10/11/2020 10:04 AM EDT documented as of this encounter Plan of Treatment Not on file documented as of this encounter Results * SEDIMENTATION RATE AUTOMATED (03/12/2016 12:00 PM EDT) Pathologist [facility] Sed Rate 24 0 - 30 mm/hr [facility] Blood specimen (specimen) 03/12/2016 12:00 PM EDT 03/12/2016 3:20 PM EDT us Mahesh Bishop MD HEMATOLOGY ORDERABLES Fi nal Result Performing Organization Address [facility] [place] [address] * CBC WITH AUTO DIFF (03/12/2016 12:00 PM EDT) [facility] WBC 5.5 4.0 - 11.0 x10(3)/mcL [facility] RBC 4.42 3.80 - 5.10 x10(6)/mcL [facility] Hgb 13.6 12.0 - 15.6 gm/dL [facility] Hct 39.2 35.7 - 45.9 % [facility] MCV 88.7 82.5 - 99.8 fL [facility] MCH 30.7 27.0 - 34.3 pg [facility] MCHC 34.6 32.1 - 35.3 gm/dL [facility] RDW 13.1 11.5 - 15.0 % [facility] Platelet 174 144 - 423 x10(3)/mcL [facility] MPV 9.0 6.8 - 10.8 fL [facility] Blood specimen (specimen) 03/12/2016 12:00 PM EDT 03/12/2016 3:20 PM EDT us Mahesh Bishop MD HEMATOLOGY ORDERABLES Fi nal Result Performing Organization Address City/[facility] Co de Phone Number [address] [address] * C-REACTIVE PROTEIN (03/12/2016 12:00 PM EDT) Pathologist [facility] CRP 1.88 <=5.00 mg/L [facility] Blood specimen (specimen) 03/12/2016 12:00 PM EDT 03/12/2016 3:20 PM EDT us Mahesh Bishop MD CHEMISTRY ORDERABLES Fin al Result [facility] 1 [place] [address] documented in this encounter Visit Diagnoses Diagnosis Pain in right knee Pain in joint, lower leg Pain in left knee Pain in joint, lower leg documented in this encounter Care Teams Dental Secretary Relationship Specialty Start Date End Date Mahesh Ramachandran Sr., MD [address] [place] [phone] PCP - General 08/22/11 03/13/20 documented as of this encounter
--- OUTSIDE RECORDS SUMMARY | 2020-03-02 13:26 | XMS_ITS | Encounter Summary ---
Author Organization [place] [address] Care Team Providers Care Lace Roller Operator Name Role Phone Duarte Romo MD, Mahesh Sandoval Primary Care Provid er Encounter Details Date Type Department Care Team (Latest Contact Info) Description 03/02/2020 2:26 PM EDT Hospital Encounter [facility] Referral Lab 1 [place], [place] [phone] Mahesh Bishop MD [address] [place] [address] Pain in left knee; Pain [...] nal Result [facility] 1 [facility] , [place] [address] * CBC WITH DIFF (03/15/2020 10:02 AM [...] 03/15/2020 3:49 PM EDT [facility] Comment:Neutrophils equals s egs plus bands Imm Gran% 0.3 % 03/15/2020 3:49 PM EDT [facility] Comment:Automated count of m etamyelocytes, myelocytes and promyelocytes. Lymph Percent 21.5 % 03/15/2020 3:49 PM EDT [facility] [place] Percent 9.9 % 03/15/2020 3:49 PM EDT [facility] Eos Percent 1.7 % 03/15/2020 3:49 PM EDT [facility] Baso Percent 0.5 % 03/15/2020 3:49 PM EDT [facility] Neut # 3.9 1.6 - 6.1 x10(3)/mcL 03/15/2020 3:49 PM EDT [facility], [facility] Comment:Neutrophils equals s egs plus bands IMMGRAN# 0.0 0.0 - 0.1 x10(3)/mcL 03/15/2020 3:49 PM EDT [facility] Comment:Automated count of m etamyelocytes, myelocytes and promyelocytes. An absolute IG <0.1 is reported as 0.0. Lymph # 1.3 1.2 - 3.9 x10(3)/mcL 03/15/2020 3:49 PM EDT [facility] [place] # 0.6 0.3 - 0.9 x10(3)/mcL 03/15/2020 3:49 PM EDT [facility], [facility] Eos# 0.1 0.0 - 0.5 x10(3)/mcL 03/15/2020 3:49 PM EDT [facility], [facility] Baso # 0.0 0.0 - 0.1 x10(3)/mcL 03/15/2020 3:49 PM EDT [facility], [facility] Blood Venipuncture / Unknown 03/15/2020 10:02 AM EDT 03/15/2020 10:02 AM EDT us Mahesh Bishop MD HEMATOLOGY ORDERABLES Fi nal Result [facility], [facility] 1 [facility] , [address] [place], [place] [id number] * C-REACTIVE PROTEIN (03/15/2020 10:02 AM EDT) CRP 1.76 <=5.00 mg/L 03/15/2020 4:32 PM EDT [email or web address] Blood Venipuncture / Unknown 03/15/2020 10:02 AM EDT 03/15/2020 10:02 AM EDT us Mahesh Bishop MD CHEMISTRY ORDERABLES Fin al Result [email or web address] [address] [facility] , [place] [address] documented in this encounter Visit Diagnoses Diagnosis Pain in left knee Pain in joint, lower leg Pain in right knee Pain in joint, lower leg documented in this encounter Care Teams Lace Roller Operator Relationship Specialty Start Date End Date Mahesh Ramachandran Sr., MD [address] [place] [phone] PCP - General 08/22/11 03/13/20 documented as of this encounter
--- OUTSIDE RECORDS SUMMARY | 2025-07-22 09:04 | XMS_ITS | Encounter Summary ---
Author Organization [facility] Address [address] [place] [address] Care Team Providers Care Wig Maker Name Role Phone Mckayla Larry MD Unavailable [phone] System, Provider Not In Primary Care Provider Un available Pcp, No Primary Care Provider +1-000-000 -0000 Alber Phillips MD Primary Care Provider [phone] Pcp, No Primary Care Provider +1-000-000 -0000 Rachel Barrow MD Unavailable [phone] Rachel Barrow MD Unavailable [phone] Leslee Hunter [employer] Unavailable [phone] Gianna Bullard RN Unavailable UnavailRachel Quintana MD Unavailable Crisotbal troncoso Unknown, Attending Provider Primary Care Provide r Unavailable Pcp, No Primary Care Provider +1-000-000 -0000 Kathy Payne MD Unavailable [phone] Zhane Baker Unavailable Pcp, No Primary Care Provider [phone] Stefan John MD Unavailable [phone] Jerri Colvin Primary Care Provider [phone] Source Comments This information has been disclosed [...] release of HIV test results or diagnoses. [id number] Reason for Referral * Diagnostic Imaging (Routine) - Closed Specialty Diagnoses / Procedures Referred By Contcynthia t Referred To Contact Diagnoses Visit for screening mammogram Procedures Mammography Screening Bilateral incl CAD Jerri Colvin [address] [place] [address] [place] [address] Phone: tel: fax: Referral ID Status Reason Start Date Expiration Date Visits Re quested Visits Authorized [id number] Closed 12/16/2018 06/14/2019 1 1 Encounter Details Date Type Department Care Team (Late st Contact Info) Description 12/16/2018 Orders Only [address] [phone] Jerri Colvin [address] [place] [address] [place] [id number] Visit for screening mammogram (Primary Dx) Social [...] mammogram documented in this encounter Care Teams Wig Maker Relationship Specialty Start Date End Date System, Provider Not In PCP - General 06/04/17 12/23/18 Pcp, No No Address PCP - General Pediatrics 12/24/18 01/15/21 Alber Phillips MD [address] [place] [address] PCP - General Family Medicine 01/16/21 01/24/21 Pcp, No No Address PCP - General 01/25/21 02/01/21 Unknown, Attending Provider PCP - General 02/02/21 04/17/21 Pcp, No No Address PCP - General 04/18/21 05/16/21 Pcp, No [address] [place] [address] PCP - General 05/17/21 09/12/21 Jerri Colvin [address] [place] [address] PCP - General 09/13/21 Mckayla Larry MD Medical Oncologist Breast Oncology 06/02/12 Rachel Barrow MD [address] [place] [address] Surgical Oncologist Breast Surgery 01/25/21 Rachel Barrow MD [address] [place] [address] Initiating Oncologist Surgical Oncology 01/25/21 Leslee Hunter CNP [address] [place] [address] Nurse Practitioner Surgical Oncology 01/25/21 Gianna Bullard, RN Registered Nurse Breast Surgery 01/25/21 Rachel Bolanos MD Surgical Oncologist Plastic Surgery 01/31/21 Kathy Payne MD [address] [place] [address] Surgical Oncologist Breast Oncology 04/20/21 Zhane Baker [address] [place] [phone] Nurse Practitioner [facility] Hematology 04/26/21 Stefan John MD [address] [facility] [place] [address] Surgical Oncologist Plastic Surgery 08/29/21 documented as of this encounter
--- OUTSIDE RECORDS SUMMARY | 2025-07-22 09:04 | XMS_ITS | Continuity of Care Document ---
Author Organization [facility] Address [address] [place] [address] Phone Care Team Providers Care Jig Boring Machine Set Up Operator Name Role Phone Alber Phillipsw Primary Care Provider [phone] Encounters Date Type Department Care Team Description 01/08/2023 6:15 AM EDT - 01/08/2023 11:59 PM EDT Hospital Encounter [facility] [address] [place] [address] Hilda Parish APRN Vermani, Samir D, MD Gastroesophageal reflux disease without esophagitis; Dysphagia, unspecified type; Garcia's esophagus without dysplasia; Polyp of colon, unspecified part of colon, unspecified type; Family hx of colon cancer Discharge Disposition: Home or Self Care 12/31/2022 Orders Only [facility] [address] [place] [address] Vincenzo Elmore MD Screening for colon cancer (Primary Dx) 11/26/2022 9:50 AM EDT Telemedicine [facility] [address] [facility] [place] [address] Hilda Parish APRN Gastroesophageal reflux disease without esophagitis (Primary Dx); Dysphagia, unspecified type; Polyp of colon, unspecified part of colon, unspecified type; Family hx of colon cancer; Garcia's esophagus without dysplasia 11/21/2022 Telephone [facility] [address] [place] [address] Vincenzo Elmore MD Procedure 10/05/2021 10:40 AM EST Office Visit [facility] NPTFTT [address] [place] [address] Iza Ortega MD Screening mammogram, encounter for (Primary Dx); Well woman exam 10/31/2020 Telephone [facility] [address] [address] Alex Luong MD Results (lab results from [facility]) 10/11/2020 Travel 10/11/2020 10:30 AM EDT Office Visit [facility] [address] [address] Alex Luong MD Other hyperlipidemia (Primary Dx); Malignant hypertension; Obstructive sleep apnea 09/12/2020 Telephone [facility] [address] [address] Alex Luong MD Results (ROSA M Sleep Study Report.) 08/14/2020 Travel 08/14/2020 9:45 AM EST - 08/14/2020 10:00 AM EST Surgery [facility] [address] [place] [address] Arie Mcnair MD CATARACT EXTRACTION WITH PHACOEMULSIFICATION AND INTRAOCULAR LENS 08/14/2020 10:11 AM EST Anesthesia Event [facility] [address] [place] [address] Obey Alas MD Stroupe, Howard L IV, MD 08/14/2020 8:38 AM EST - 08/14/2020 11:12 AM EST Hospital Encounter [facility] [address] [place] [address] Arie Mcnair MD Discharge Disposition: Home or Self Care 08/10/2020 9:46 AM EST - 08/10/2020 11:59 PM EST Hospital Encounter [facility] [address] [place] [address] Covid19, [facility] [place] Pre-op testing; Encounter for laboratory testing for COVID-19 virus Discharge Disposition: Home or Self Care 08/01/2020 Telephone [facility] [address] [place] [phone] Alex Luong MD Dizziness 07/31/2020 Travel 07/31/2020 10:45 AM EST - 07/31/2020 11:00 AM EST Surgery [facility] [address] [place] [address] Arie Mcnair MD CATARACT EXTRACTION WITH PHACOEMULSIFICATION AND INTRAOCULAR LENS 07/31/2020 10:26 AM EST Anesthesia Event [facility] [address] [place] [address] Mitch Allan IV, MD Grigorieva, Anastassia, MD 07/31/2020 9:28 AM EST - 07/31/2020 11:23 AM EST Hospital Encounter [facility] [address] [place] [address] Arie Mcnair MD Discharge Disposition: Home or Self Care 07/27/2020 11:39 AM EST - 07/27/2020 11:59 PM EST Hospital Encounter [facility] [address] [place] [address] Covid19, [facility] [place] Pre-op testing; Encounter for laboratory testing for COVID-19 virus Discharge Disposition: Home or Self Care 07/17/2020 Travel 07/11/2020 Travel 07/11/2020 9:47 AM EST - 07/11/2020 11:59 PM EST Hospital Encounter [facility] [address] [facility] [address] [place] [address] Alex Luong MD Malignant hypertension Discharge Disposition: Home or Self Care 07/11/2020 10:45 AM EST Office Visit [facility] [address] [place] [address] Alex Luong MD Malignant hypertension (Primary Dx); Other hyperlipidemia 07/10/2020 Telephone [facility] [address] [phone] Alex Luong MD Results (Lab Work ) 07/07/2020 Telephone [facility] [address] [address] Alex Luong MD Non-scheduled Referral 07/06/2020 Travel 07/06/2020 3:15 PM EST Office Visit [facility] [address] [address] Alex Luong MD Malignant hypertension (Primary Dx); Other hyperlipidemia; Chest discomfort; Insomnia, unspecified type 03/15/2020 10:00 AM EDT - 03/15/2020 10:01 AM EDT Hospital Encounter [facility] [address] [address] Mahesh Bishop MD Pain in left knee; Pain in right knee Discharge Disposition: Home or Self Care 03/15/2020 Travel 03/15/2020 10:02 AM EDT - 03/15/2020 11:59 PM EDT Hospital Encounter [facility] [address] [address] Mahesh Bishop MD Left knee pain, unspecified chronicity Discharge Disposition: Home or Self Care 03/15/2020 10:00 AM EDT Hospital Encounter [facility] [address], [place] [address] Mahesh Bishop MD Right knee pain, unspecified chronicity Discharge Disposition: Home or Self Care 03/14/2020 Travel 03/02/2020 2:26 PM EDT Hospital Encounter [facility] Referral Lab [address] [place] [address] Mahesh Bishop MD Pain in left knee; Pain in right knee 01/30/2018 1:00 PM EDT Office Visit [facility] NPTFTT [address] [place] [phone] Iza Ortega MD Well woman exam (Primary Dx) 01/23/2017 Telephone [facility] N[facility] [address] [place] [address] Iza Ortega MD Results 01/07/2017 2:45 PM EDT - 01/07/2017 11:59 PM EDT Hospital Encounter [facility] [address] [place] [address] Iza Ortega MD Post-menopausal Discharge Disposition: Home or Self Care 01/07/2017 1:40 PM EDT Office Visit [facility] NPTT [address] [place] [address] Iza Ortega MD Post-menopausal (Primary Dx); Well woman exam with routine gynecological exam 11/04/2016 11:13 PM EDT - 11/05/2016 4:48 AM EDT [facility] [place] [address] Pablo Smith MD Situational anxiety (Primary Dx); Dyspnea, unspecified type Discharge Disposition: Home or Self Care 03/12/2016 11:56 AM EDT - 03/12/2016 11:59 PM EDT Hospital Encounter [facility] [address] [place] [address] Mahesh Bishop MD Pain in right knee; Pain in left knee Discharge Disposition: Home or Self Care 03/12/2016 10:16 AM EDT Hospital Encounter [facility] Referral Lab [address] [place] [address] Mahesh Bishop MD Pain in right knee; Pain in left knee 03/12/2016 11:48 AM EDT - 03/12/2016 11:55 AM EDT [facility] [address] [place] [address] Mahesh Bishop MD Bilateral knee pain Discharge Disposition: Home or Self Care 02/14/2016 Telephone [facility] [address] [address] Maryjane Duron MD Results 12/28/2015 Telephone [facility] [address] [phone] Maryjane Duron MD Visit Follow Up 12/28/2015 10:34 AM EDT - 12/28/2015 11:59 PM EDT Hospital Encounter [facility] [address] [place] [address] Maryjane Duron MD Pelvic pain in female Discharge Disposition: Home or Self Care 12/27/2015 3:25 PM EDT - 12/27/2015 11:59 PM EDT Hospital Encounter [facility] [place] [address] Ductal carcinoma in situ (DCIS) of left breast; Family history of uterine cancer; Well woman exam with routine gynecological exam; HX: breast cancer Discharge Disposition: Home or Self Care 12/27/2015 8:00 AM EDT Office Visit [facility] [address] [phone] Maryjane Duron MD Well woman exam with routine gynecological exam (Primary Dx); Ductal carcinoma in situ (DCIS) of left breast; Pelvic pain in female; Family history of uterine cancer; HX: breast cancer 06/03/2015 2:47 PM EST - 06/03/2015 5:52 PM EST Emergency [facility] [place] [address] May Ray MD Pain in both lower extremities (Primary Dx) Discharge Disposition: [facility] 05/29/2015 9:26 AM EST - 06/01/2015 4:04 PM EST Hospital Encounter [facility] 7D ORTHO [facility] [place] [address] Mahesh iBshop MD Discharge Disposition: Penitentiary Facility 05/29/2015 12:00 PM EST - 05/29/2015 3:00 PM EST Surgery [facility] [place] [address] Mahesh Bishop MD ARTHROPLASTY, KNEE, TOTAL, BILATERAL 05/29/2015 12:03 PM EST Anesthesia Event [facility] [place] [address] Mahesh Rosas MD Merkle Serey, Jennifer L, NP 05/22/2015 1:00 PM EDT - 05/22/2015 11:59 PM EDT Hospital Encounter [facility] [place] [address] Provider, [facility] Total Joint Class Discharge Disposition: Home or Self Care 05/22/2015 11:15 AM EDT - 05/22/2015 12:59 PM EDT Hospital Encounter [facility] PRE-ADMIT TESTING [facility] [place] [address] Anticoagulation adequate (Primary Dx); Preop testing; Generalized OA Discharge Disposition: Home or Self Care 01/09/2015 10:15 AM EDT Office Visit [address] [phone] Jovi Villatoro DPM Congenital metatarsus primus varus (Primary Dx) 11/30/2014 5:15 AM EDT - 11/30/2014 11:59 PM EDT Hospital Encounter [facility] [place] [address] Routine gynecological examination Discharge Disposition: Home or Self Care 11/30/2014 11:00 AM EDT Office Visit [facility] ER[facility] [address] [place] [phone] Maryjane Duron MD Routine gynecological examination (Primary Dx) 10/03/2014 12:30 PM EDT Procedure visit [facility] [address] [place] [phone] Jovi Villatoro DPM Hallux valgus (acquired) (Primary Dx) 09/08/2014 12:00 PM EST Office Visit [address] [place] [phone] Jovi Villatoro DPM Hallux valgus (acquired) (Primary Dx) 08/18/2014 12:00 PM EST Office Visit [facility] [address] [address] Jovi Villatoro DPM Hallux valgus (acquired) (Primary Dx) 08/11/2014 12:00 PM EST Office Visit [address] [address] Jovi Villatoro, DPM Hallux valgus (acquired) (Primary Dx) 08/02/2014 2:30 PM EST Office Visit [facility] Podiatry [address] [place] [phone] Jovi Villatoro DPM Hallux valgus (acquired) (Primary Dx) 07/25/2014 1:00 PM EST - 07/25/2014 2:50 PM EST Surgery [facility] [address] [place] [address] Jovi Villatoro DPM BUNIONECTOMY TIGHT ROPE PROCEDURE 07/25/2014 11:31 AM EST - 07/25/2014 4:40 PM EST Hospital Encounter [facility] [address] [place] [phone] Jovi Villatoro DPM Discharge Disposition: Home or Self Care 07/19/2014 Orders Only [facility] Anesthesia [facility] [place] [address] Mahesh Russell MD Preop testing (Primary Dx) 03/15/2014 4:15 PM EDT Office Visit [facility] [address] [phone] Jovi Villatoro, OSMIN Hallux valgus, acquired, right (Primary Dx); Other hammer toe (acquired); Bunion, right 11/16/2013 4:15 AM EDT - 11/16/2013 12:29 PM EDT Hospital Encounter [facility] PROC[facility] [place] [address] Other screening mammogram; Routine gynecological examination Discharge Disposition: Home or Self Care 11/16/2013 12:30 PM EDT - 11/16/2013 11:59 PM EDT Hospital Encounter [facility] [address] [place] [address] Maryjane Duron MD Post-menopausal (Primary Dx) Discharge Disposition: Home or Self Care 11/16/2013 9:40 AM EDT Office Visit [facility] [address] [place] [address] Maryjane Duron MD Other screening mammogram (Primary Dx); Routine gynecological examination 10/20/2012 2:50 AM EDT - 10/20/2012 11:59 PM EDT Hospital Encounter [facility] [place] [address] Routine gynecological examination Discharge Disposition: Home or Self Care 10/20/2012 9:40 AM EDT Office Visit [facility] [address] [place] [address] Maryjane Duron MD Routine gynecological examination (Primary Dx); Breast cancer (HCC) 08/26/2011 8:00 AM EST - 08/26/2011 10:15 AM EST Surgery [facility] [address] [place] [address] Jovi Villatoro DPM BUNIONECTOMY WITH KYLAH OSTEOTOMY 08/26/2011 6:40 AM EST - 08/26/2011 10:56 AM EST Hospital Encounter [facility] SAME DAY SURGERY [address] [place] [address] Jovi Villatoro DPM Discharge Disposition: Home or Self Care 08/23/2011 2:28 PM EST - 08/23/2011 11:59 PM EST Hospital Encounter [facility] EKG [address] [place] [address] Jovi Villatoro DPM Discharge Disposition: Home or Self Care 08/23/2011 10:53 AM EST - 08/23/2011 2:27 PM EST Hospital Encounter [facility] PRE-ADMIT TESTING [address] [place] [address] Pat, [facility] Discharge Disposition: Home or Self [...] mouth daily. 30 Tab 6 1 Active nco3047-ube ypf-OzPe-NGz-as b-C (PLENVU) 140-9-5.2 gram Oral Powder in [...] Alive Social History Smoking Status as of 07/22/2025 Tobacco Use Types Packs/Day Years Used Date [...] on file Medical Devices Implanted Type Area Graphic User Interface Designer Device Identifier Shelf Expiration Date Model / Serial / Lot Screw Compression Headless Thread Long 3.0 X 22mm - [id number] Implanted:Qty: 1 on 08/26/2011 by Jovi Villatoro DPM at [facility] Left: Toe SYNTHES-STRATEC: SYNTHES [facility] 02.226.12 2 / / Implant Bo Vo, Pro-Toe Size Zero Degrees Large - [id number] Implanted:Qty: 1 on 08/26/2011 by Jovi Villatoro DPM at [facility] Left: Toe 01/24/2019 0109-1247 / / Tightrope Mini Ft - [id number] Implanted:Qty: 1 on 07/25/2014 by Jovi Villatoro DPM at [facility] Right: Foot ARTHREX 04/27/2019 AR-8917DS / / [id number] Kit Disposable Pin Drill Trim-It 2mm X 100mm - [id number] Implanted:Qty: 1 on 07/25/2014 by Jovi Villatoro DPM at [facility] Right: Foot ARTHREX 12/27/2015 AR-4152DS / / [id number] Screw Low Profile Ti 2.4mm X 14mm Cannulated Partial Thread - [id number] Implanted:Qty: 1 on 07/25/2014 by Jovi Villatoro DPM at [facility] Right: Foot ARTHREX AR-8724-1 4PT / / Screw Micro Headless Comp Ft Cannulated Ti 2.5mm X 14mm - [id number] Implanted:Qty: 1 on 07/25/2014 by Jovi Villatoro DPM at [facility] Right: Foot ARTHREX AR-8725-1 4H / / Patella Porous 32mm X 10mm - [id number] Implanted:Qty: 1 on 05/29/2015 by Mahesh Bishop MD at [facility] Left: Knee GREG:GREG 10/28/2019 5878-065- 32 / / [id number] Pros Femoral Porous Cr Nexgen Size C Right - [id number] Implanted:Qty: 1 on 05/29/2015 by Mahesh Bishop MD at [facility] Right: Knee GREG:GREG 05/29/2023 5972-013- / / [id number] Patella Porous 32mm X 10mm - [id number] Implanted:Qty: 1 on 05/29/2015 by Mahesh Bishop MD at [facility] Right: Knee GREG:GREG 11/26/2024 5878-065- 32 / / [id number] Tibia Monoblock Cr Sz-3 10mm - [id number] Implanted:Qty: 1 on 05/29/2015 by Mahesh Bishop MD at [facility] Right: Knee GREG:GREG 09/27/2019 5886-043- / / [id number] Pros Femoral Porous Cr Nexgen Size C Left - [id number] Implanted:Qty: 1 on 05/29/2015 by Mahesh Bishop MD at [facility] Left: Knee GREG:GREG 09/26/2020 5972-013- / / [id number] Tibia Monoblock Cr Sz-3 10mm - [id number] Implanted:Qty: 1 on 05/29/2015 by Mahesh Bishop MD at [facility] Left: Knee GREG:GREG 04/26/2020 5886-043- 10 / / [id number] Lens Intraocular Preloaded 21.5 Diopter - [id number] Implanted:Qty: 1 on 07/31/2020 by Arie Mcnair MD at [facility] Right: Eye [facility]INE LAB:SURG [id number] 03/24/2023 AU00T0.21 5 / [id number] / Lens Intraocular Preloaded 21.5 Diopter - [id number] Implanted:Qty: 1 on 08/14/2020 by Arie Mcnair MD at [facility] Left: Eye [facility]INE LAB:SURG [id number] 05/26/2023 AU00T0.21 5 / [id number] / Explanted Type Area Graphic User Interface Designer Device Identifier Shelf Expiration Date Model / Serial / Lot Wire Guide 1.1mm Non Threaded - [id number] Implanted:08/26 by Jovi Villatoro DPM (Quantity not [...] 11:03 AM EDT Pelvic pain in female EVENT SET UP SPECIALIST CYTOLOGY REPORT Routine 12/27/2015 8:14 AM EDT [...] Consult Dictated by Eugene Ramos MD, Dictation# [id number] Active Hospital Problems Diagnosis Primary osteoarthritis of both knees Hypothyroidism GERD (gastroesophageal reflux disease) HTN (hypertension) Resolved Hospital Problems Diagnosis No resolved problems to display. S/p BILATERAL TOTAL KNEE REPLACEMENT 05/29/15 Xarelto. Eugene Ramos ARTHROPLASTY, KNEE, TOTAL, BILATERAL 05/29/2015 12:05 PM EST Primary localized osteoarthrosis, lower leg, left Special Needs CPT;17101 REV; DATE CHG FROM 07/31/15 TO 05/29 [...] 12:46 PM EDT Congenital metatarsus primus varus EVENT SET UP SPECIALIST CYTOLOGY REPORT Routine 11/30/2014 5:15 AM EDT [...] metatarsus primus varus Special Needs BETO CPT; 60405/37798/65761 HAMMER TOE REPAIR 07/25/2014 2:10 PM EST Hallux valgus (acquired) Other hammer toe (acquired) Congenital metatarsus primus varus Special Needs BETO CPT; 65673/67228/40995 BUNIONECTOMY TIGHT ROPE PROCEDURE 07/25/2014 2:10 PM EST Hallux valgus (acquired) Other hammer toe (acquired) Congenital metatarsus primus varus Special Needs BETO CPT; 47732/96122/07167 XR FOOT RIGHT AP LATERAL AND OBLIQUE Routine 03/15/2014 5:55 PM EDT Hallux valgus, acquired, right DX BONE DENSITY AXIAL SKELETON Routine 11/16/2013 1:15 PM EDT Post-menopausal EVENT SET UP SPECIALIST CYTOLOGY REPORT Routine 11/16/2013 4:15 AM EDT EVENT SET UP SPECIALIST CYTOLOGY REPORT Routine 10/20/2012 12:00 AM EDT SCANNED PRE/POST PROCEDURES 07/2011 9:32 PM EST SCANNED ANESTHESIA FORMS 012 9:32 PM EST SCANNED OR REPORT 08/26/2011 11:41 AM EST PATHOLOGY TISSUE REPORT Routine 08/26/19 12 8:45 AM EST EXCISION MASS FOOT/TOE/GANGLION 08/26/2011 8:06 AM EST HALLUX VALGUS HAMMERTOES LEFT Special Needs PHONE BUSYTONYA CPT 57465 19134 [id number] HAMMER TOE REPAIR 08/26/2011 8:06 AM EST HALLUX ELIOTGUS SIA LEFT Special Needs PHONE EMMY [facility] [phone] BUNIONECTOMY WITH YKLAH OSTEOTOMY 08/26/2011 8:06 AM EST [place] NNAMDI STOVALL LEFT Special Needs PHONE EMMY [facility] [phone] [phone] 77234 EK EKG 12 LEAD Routine 08/23/2011 11:19 [...] Vincenzo Elmore MD 01/08/2023 0743 Hilda Mccainridge MEDICAL PHYSICS TEACHER ENDOSCOPY PROCEDURE ORDERA BLES Final Result * [...] Role Brittani Garcia RN Nurse James Sawyer, MEAT MOLDER MEAT MOLDER Vincenzo lEmore MD Performing Provider Medications See Anesthesia Record. [...] Vincenzo Elmore MD 01/08/2023 0807 Hilda Parish MEDICAL PHYSICS TEACHER ENDOSCOPY PROCEDURE ORDERA BLES Final Result * [facility] PATHOLOGY ORDER (01/08/2023 7:43 AM EDT) Tissue CARDIOESOPHAGEAL JUNCTION STRUCTURE / Unknown 01/08/2023 7:43 AM EDT Tissue specimen (specimen) STOMACH STRUCTURE / Unknown 01/08/2023 7:43 AM EDT Tissue specimen (specimen) TRANSVERSE COLON STRUCTURE / Unknown 01/08/2023 8:07 AM EDT Tissue specimen (specimen) ASCENDING COLON STRUCTURE / Unknown 01/08/2023 8:07 AM EDT Impressions [facility] - 01/08/2023 7:00 PM EDT [...] There is no evidence of malignancy. Narrative [facility] - 01/08/2023 7:00 PM EDT Pathologist: Alber Handley MD Vincenzo Elmore MD VITALAXIS - ORDERABLES Final Result Performing Organization Address [facility] Co de Phone Number [facility] [place] [address] * INTRAOP AIRWAY PLACEMENT (08/14/2020 10:15 AM EST) Narrative [facility] - 08/14/2020 10:15 AM EST Jaquan Wild, MEAT MOLDER 08/14/2020 10:15 AM Intraop Airway Placement: Airway type: Nasal cannula salter Obey Alas MD [place] ANESTHESIA Final Resul t Performing Organization Address [facility] Co de Phone Number [facility] [address] [place] [address] * CORONAVIRUS 2019 (08/10/2020 9:44 AM EST) Only the most recent of2 resultswithin the time period is included. CORONAVIRUS [id number] Not Detected Not Detected 08/10/2020 8:16 PM EST [employer] Comment:Caution should be ex ercised when interpreting [...] EST 08/10/2020 9:44 AM EST Narrative [facility] [employer] - 08/10/2020 8:16 PM EST This test is a nucleic acid amplification test intended for the qualitative detection of nucleic acid from the SARS-CoV-2 in upper respiratory samples collected from individuals suspected of COVID-19. Test is performed on the [employer] [place] platform under the FDA's Emergency Use Authorization (EUA). Hologic Provider Fact Sheet: https://www.fda.gov/media/298215/download Hologic Patient Fact Sheet: https://www.fda.gov/media/627735/download us Arie Mcnair MD MICROBIOLOGY - GENERAL ORDER KARIME Final Result Performing Organization Address [facility] Co de Phone Number [facility] [employer] [address] [facility], [place] [address] * SCANNED RADIOLOGY REPORT (08/07/2020 2:58 PM EST) Anatomical Region Laterality Modality Other 08/07/2020 2:58 PM EST us Unknown Unknown IMG DIAGNOSTIC IMAGING ORDERABLE S Final Result * INTRAOP AIRWAY PLACEMENT (07/31/2020 10:32 AM EST) Narrative [facility] - 07/31/2020 10:32 AM EST Anuja West, MEAT MOLDER 07/31/2020 10:32 AM Intraop Airway Placement: Airway type: Nasal cannula salter us Mitch Allan IV, MD [place] ANESTHESIA Final Re sult Performing Organization Address [facility] Co de Phone Number [facility] [address] [place] [address] * CA US VISCERAL VASCULAR COMPLETE (07/11/2020 10:27 AM [...] 10:45 AM CLINICAL HISTORY: M25.562-Pain in left dtkq-XXO-19-CM COMPARISON: Radiographs 02/02/2020, CT 03/12/2020 PROCEDURE COMMENTS: [...] 10:45 AM CLINICAL HISTORY: M25.562-Pain in left ayci-YUR-62-CM COMPARISON: Radiographs 02/02/2020, CT 03/12/2020 PROCEDURE COMMENTS: [...] 10:45 AM CLINICAL HISTORY: M25.561-Pain in right atqf-EWL-63-CM COMPARISON: Radiographs 02/02/2020, CT 03/12/2020 PROCEDURE COMMENTS: [...] 10:45 AM CLINICAL HISTORY: M25.561-Pain in right fjxa-FNW-86-CM COMPARISON: Radiographs 02/02/2020, CT 03/12/2020 PROCEDURE COMMENTS: [...] of2 resultswithin the time period is included. [facility] Sed Rate 11 0 - 30 mm/hr 03/15/2020 4:48 PM EDT [employer] Blood Venipuncture / Unknown 03/15/2020 10:02 AM EDT 03/15/2020 10:02 AM EDT Mahesh Bishop MD HEMATOLOGY ORDERABLES Fi nal Result [employer] [address] [place] [address] , [place] [address] * CBC WITH DIFF (03/15/2020 10:02 AM EDT) Only the most recent of4 resultswithin the time period is included. Pathologist [facility] WBC 6.0 3.7 - 10.3 x10(3)/mcL 03/15/2020 [...] 3:49 PM EDT [facility] Foster Percent 9.9 % 03/15/2020 3:49 PM EDT [...] 0.1 x10(3)/mcL 03/15/2020 3:49 PM EDT [facility] [employer], [facility] Comment:Automated count of m etamyelocytes, myelocytes and promyelocytes. An absolute IG <0.1 is reported as 0.0. Lymph # 1.3 1.2 - 3.9 x10(3)/mcL 03/15/2020 3:49 PM EDT [facility], [facility] Foster # 0.6 0.3 - 0.9 x10(3)/mcL 03/15/2020 3:49 PM EDT [facility], [facility] Eos# 0.1 0.0 - 0.5 x10(3)/mcL 03/15/2020 3:49 PM EDT [facility] [employer], [facility] Baso # 0.0 0.0 - 0.1 x10(3)/mcL 03/15/2020 3:49 PM EDT [facility] [employer], [facility] Blood Venipuncture / Unknown 03/15/2020 10:02 AM EDT 03/15/2020 10:02 AM EDT us Mahesh Bishop MD HEMATOLOGY ORDERABLES Fi nal Result Performing Organization Address [facility] Co de Phone Number [facility] [employer] [address] , [place] [address] * C-REACTIVE PROTEIN (03/15/2020 10:02 AM EDT) Only the most recent of2 resultswithin the time period is included. [facility] CRP 1.76 <=5.00 mg/L 03/15/2020 4:32 PM EDT [facility] [employer], [facility] Blood Venipuncture / Unknown 03/15/2020 10:02 AM EDT 03/15/2020 10:02 AM EDT Mahesh Bishop MD CHEMISTRY ORDERABLES Fin al Result Performing Organization Address [facility] Co de Phone Number [facility] [employer] [address] [address] * DX BONE DENSITY AXIAL SKELETON (01/07/2017 3:30 PM EDT) Only the most recent of2 resultswithin the time period is included. Anatomical Region Laterality Modality Dexa Scan 01/07/2017 Narrative 01/07/2017 4:29 PM EDT Indication: The patient is presently being monitored while on treatment and requires a bone density assessment. Study was performed on Recorrido 3.2. Bone Density: Region BMD T-score Z-score [...] of3 resultswithin the time period is included. [facility] Troponin-T <0.01 <=0.00 ng/mL [facility] Comment: Values > or = 0.01 ng/mL have been shown to have prognostic value. Blood specimen (specimen) 11/05/2016 2:00 AM EDT 11/05/2016 2:08 AM EDT Pablo Smith MD CHEMISTRY ORDERABLES Final Result Performing Organization Address City/[facility] Co de Phone Number [facility] [address] [place] [address] * (ABNORMAL) D-DIMER (11/04/2016 11:57 PM EDT) [facility] D-Dimer 318(H) <=230 ng/mL D-DU [facility] Comment: This test has been clinically validated by the computer lab aide and approved by the FDA for exclusion [...] ORDERABLES Final Result Performing Organization Address City/[facility]/ZIP Co de Phone Number [facility] [address] [place] [address] * DIFFERENTIAL (11/04/2016 11:50 PM EDT) Only the most recent of3 resultswithin the time period is included. Pathologist [facility] Neut Percent 63.1 % [facility] Lymph Percent 23.2 % [facility] Foster Percent 11.6 % [facility] Eos Percent 1.3 % [facility] Baso Percent 0.8 % [facility] Neut# 5.5 1.8 - 7.7 x10(3)/[facility] Lymph# 2.0 0.6 - 4.8 x10(3)/mcL [facility] Foster# 1.0 0.0 - 1.3 x10(3)/[facility] Eos# 0.1 0.0 - 0.5 x10(3)/[facility] Baso# 0.1 0.0 - 0.2 x10(3)/[facility] Blood specimen (specimen) 11/04/2016 11:50 PM EDT 11/05/2016 12:02 AM EDT [facility] HEMATOLOGY ORDERABL ES Final Result Performing Organization Address City/State/[facility] [place] [address] * BASIC METABOLIC PANEL (11/04/2016 11:50 PM EDT) Only the most recent of4 resultswithin the time period is included. Sodium 139 136 - 145 mmol/L [facility] Potassium 4.0 3.5 - 5.0 mmol/L [facility] Chloride 100 98 - 107 mmol/L [facility] Total CO2 25 22 - 29 mmol/L [facility] Anion Gap 14 7 - 16 mmol/L [facility] Calcium 9.6 8.8 - 10.2 mg/dL [facility] Glucose Lvl 88 82 - 100 mg/dL [facility] BUN 17 8 - 23 mg/dL [facility] Creatinine 0.87 0.51 - 1.30 mg/dL [facility] GFR Afr Am >60 [facility] GFR Non Afr Am >60 [facility] Blood specimen (specimen) UPPER LIMB STRUCTURE / Unknown 11/04/2016 11:50 PM EDT 11/05/2016 12:02 AM EDT us Pablo Smith MD CHEMISTRY ORDERABLES Edited Result - Final [facility] [place] [address] [address] * XR CHEST PA AND LATERAL (11/04/2016 [...] PM EDT Stationary ECG Study [facility] Interpretive Statements SINUS RHYTHM Nonspecific STT changes [...] 12/28/2015 12:21 PM History: R10.2-Pelvic and perineal [id number] Comparison: None Transabdominal and transvaginal imaging Findings: [...] 12/28/2015 12:21 PM History: R10.2-Pelvic and perineal [id number]-13-CM Comparison: None Transabdominal and transvaginal imaging Findings: [...] IMG US ORDERABLES Final R esult * EVENT SET UP SPECIALIST CYTOLOGY REPORT (12/27/2015 8:14 AM EDT) Only the most recent of4 resultswithin the time period is included. Outer Diameter Technician Cytology Report PATIENT NAME:SHIRIN DOVE Outer Diameter Technician Cytology Report Accession Number Collected Date/Time Received Date/Time [id number] 12/27/15 08:14 EDT 12/27/15 15:44 EDT GY [...] before definitive therapy. Processed using the [employer] Identity Management Consultant automated cytology screening device ([employer]). Restaurant Floor Manager: LUCY 12/28/2015 Completed by: Adali Allison (Electronically signed by) 12/28/2015 [facility] Laboratory [facility] 12/27/2015 8:14 AM EDT us Maryjane Duron MD PATHOLOGY ORDERABLES Daina l Result [facility] [address] [place] [address] * SCANNED RHYTHM STRIPS (06/05/2015 11:02 AM [...] included. Hgb 10.7(L) 12.0 - 15.6 gm/dL [facility] Hct 31.1(L) 35.7 - 45.9 % [facility] Blood specimen (specimen) 06/01/2015 5:27 AM EST 06/01/2015 5:55 AM EST Narrative [facility] - 06/01/2015 6:09 AM EST Call MD if Hct is less than 28 us Mahesh Bishop MD HEMATOLOGY ORDERABLES Fi nal Result Performing Organization Address City/State/[facility] [place] [address] * NM LUNG SCAN PERFUSION ONLY (05/31/2015 [...] EST) Final No growth at 2 days. [facility] Urine specimen (specimen) 05/31/2015 12:32 PM EST 05/31/2015 2:10 PM EST Octavia Ramos MD MICROBIOLOGY - GENERAL [place] [address] * (ABNORMAL) URINALYSIS (05/31/2015 12:32 PM EST) Only the most recent of2 resultswithin the time period is included. UA Color Yellow [facility] UA Appear Hazy(A) Clear [facility] UA Glucose Negative Negative [facility] UA Ketones Trace (5 mg/dl)(A) Negative [facility] UA Blood Negative Negative [facility] UA pH 6.0 4.8 - 8.0 [facility] Comment:Reference range emily d for random specimens only. UA Protein Negative Negative [facility] UA Urobilinogen Normal <=1 mg/dl [facility] UA Nitrite Negative Negative [facility] UA Leuk Est Negative Negative [facility] UA Spec Grav 1.009 1.001 - 1.035 [facility] Comment:Reference range emily d for random specimens only. UA WBC <1 0 - 4 /HPF [facility]A Mucus Trace [facility] UA Hyal Cast 1 0 - 2 /LPF [facility] UA Trans Epi <1 /HPF [facility] Urine specimen (specimen) STRUCTURE OF URINARY TRACT PROPER / Unknown 05/31/2015 12:32 PM EST 05/31/2015 12:39 PM EST us Octavia Ramos MD URINE ORDERABLES Final Resul t Performing Organization Address City/[facility]/[place] [address] * (ABNORMAL) CBC (05/31/2015 9:57 AM EST) WBC 12.0(H) 4.0 - 11.0 x10(3)/mcL [facility] RBC 3.56(L) 3.80 - 5.10 x10(6)/mcL [facility] Hgb 10.9(L) 12.0 - 15.6 gm/dL [facility] Hct 31.8(L) 35.7 - 45.9 % [facility] MCV 89.4 82.5 - 99.8 fL [facility] MCH 30.5 27.0 - 34.3 pg [facility] MCHC 34.1 32.1 - 35.3 gm/dL [facility] RDW 12.8 11.5 - 15.0 % [facility] Platelet 168 144 - 423 x10(3)/mcL [facility] MPV 8.9 6.8 - 10.8 fL [facility] Blood specimen (specimen) UPPER LIMB STRUCTURE / Unknown 05/31/2015 9:57 AM EST 05/31/2015 10:03 AM EST Octavia Ramos MD HEMATOLOGY ORDERABLES Final Result Performing Organization Address City/[facility]/[place] [address] * (ABNORMAL) NT PROBNP (05/31/2015 9:57 AM EST) NT Pro-BNP 840(H) <=319 pg/mL [facility] Comment: An NT pro-BNP level less than 300 pg/mL in any patient, regardless of age, Effectively rules out acute CHF with a 99% negative predictive value. Blood specimen (specimen) UPPER LIMB STRUCTURE / Unknown 05/31/2015 9:57 AM EST 05/31/2015 10:03 AM EST Octavia Ramos MD CHEMISTRY ORDERABLES Final R esult Performing Organization Address City/[facility]/ZIP Co de Phone Number [facility] [address] [place] [address] * (ABNORMAL) BLOOD GAS ARTERIAL (05/31/2015 9:57 AM EST) Pathologist [facility] pH 7.410 7.370 - 7.440 [facility] pCO2 48(H) 32 - 45 mmHg [facility] pO2 115(H) 80 - 95 mmHg [facility] HCO3 30(H) 20 - 29 mmol/L [facility] TCO2 32(H) 21 - 30 mmol/L [facility] Base Excess 4.8(H) -2.8 - 2.3 mEq/L [facility] O2 Sat 99(H) 95 - 97 % [facility] Inspired O2 3.5L [facility] Specimen Type Arterial [facility] Blood specimen (specimen) UPPER LIMB STRUCTURE / Unknown 05/31/2015 9:57 AM EST 05/31/2015 10:03 AM EST Octavia Ramos MD CHEMISTRY ORDERABLES Final R esult Performing Organization Address City/[facility]/ZIP Co de Phone Number [facility] [address] [place] [address] * XR CHEST AP PORTABLE (05/31/2015 9:46 [...] identified in the chest. Octavia Ramos MD [facility] ORDER KARIME Final Result * [...] Uncomplicated appearing left knee following arthroplasty. us Mhaesh Bishop MD IMG DIAGNOSTIC IMAGING O RDERABLES [...] MD BLOOD BANK ORDERABLES Fi nal Result [facility] [address] [place] [address] * STAPHYLOCOCCUS AUREUS SCREEN (05/22/2015 1:20 PM EDT) Final No growth of Staphylococcus aureus [facility] Specimen from nose (specimen) 05/22/2015 1:20 PM EDT 05/22/2015 1:30 PM EDT us Mahseh Bishop MD MICROBIOLOGY - GENERAL O RDERABLES Final Result [facility] [address] [place] [address] * ABORH (05/22/2015 1:20 PM EDT) ABOR Int O POS [facility] Blood specimen (specimen) 05/22/2015 1:20 PM EDT 05/22/2015 1:23 PM EDT us Mahesh Bishop MD BLOOD BANK ORDERABLES Fi nal Result Performing Organization Address [facility] de Phone Number [facility] [address] [place] [address] * (ABNORMAL) PARTIAL THROMBOPLASTIN TIME (05/22/2015 1:20 PM EDT) PTT 36.0(H) 26.7 - 35.9 second(s) [facility] Comment: Therapeutic range for direct [...] ORDERABLES Fi nal Result Performing Organization Address [facility] de Phone Number [facility] [address] [place] [address] * PT / INR (05/22/2015 1:20 PM EDT) PT 11.1 9.3 - 12.3 second(s) [facility] INR 1.04 0.87 - 1.15 [facility] Comment: Level of Therapy Indications Target INR Range Standard Dose Treatment and prophylaxis of venous 2.0 - 3.0 thrombosis, pulmonary embolism High Dose High risk patients with mechanical 2.5 - 3.5 heart valves Blood specimen (specimen) 05/22/2015 1:20 PM EDT 05/22/2015 1:24 PM EDT us Mahesh Bishop MD HEMATOLOGY ORDERABLES Fi nal Result Performing Organization Address [facility]/State/ZIP Co de Phone Number [facility] [address] [place] [address] * ANTIBODY SCREEN IGG (05/22/2015 1:20 PM EDT) ABSC IgG Int Negative [facility] Blood specimen (specimen) 05/22/2015 1:20 PM EDT 05/22/2015 1:23 PM EDT us Mahesh Bishop MD BLOOD BANK ORDERABLES Fi nal Result [facility] [address] [place] [address] * XR FOOT RIGHT AP LATERAL AND [...] Report Accession Number Collected Date/Time Received Date/Time [id number] 08/26/11 08:45 EST 08/26/11 13:20 EST Diagnosis Ganglion cyst, excision: - Benign synovial cyst. JOELLE PORTER MD (Electronicall y signed by) Verified: 08/27/2011 [facility] Laboratory Clinical Information Hallux valgus [...] performed and the findings corroborate the diagnosis. [facility] 08/26/2011 8:45 AM EST us Jovi Villatoro DPM PATHOLOGY ORDERABLES Final Result Performing Organization Address City/State/[facility] Co de Phone Number [facility] [address] [place] [address] Visit Diagnoses Diagnosis Start Date Routine gynecological [...] hypertension Unspecified essential hypertension 05/29/2015 Care Teams Jig Boring Machine Set Up Operator Relationship Specialty Start Date End Date Alber Phillips [address] [place] [address] PCP - General Family Medicine 03/14/20
--- OUTSIDE RECORDS SUMMARY | 2025-07-22 09:04 | XMS_ITS | Clinical Summary ---
Author Organization [facility] Address [address] [place] [address] Care Team Providers Care Director Customer Name Role Phone Mckayla Larry MD Unavailable [phone] Rachel Barrow MD Unavailable [phone] Rachel Barrow MD Unavailable [phone] Leslee Hunter [facility] Unavailable [phone] Gianna Bullard RN Unavailable Unavaila Rachel Mistry MD Unavailable Unajosselini Kathy Breen MD Unavailable Zhane Baker Unavailable Stefan John MD Unavailable [phone] Jerri Colvin Primary Care Provider [phone] Source Comments This information has been disclosed [...] therelease of HIV test results or diagnoses. [id number] Allergies Active Allergy Reactions Criticality Noted [...] EDT 1 Active naloxone (NARCAN) 4 mg/actuation Arma Apply 1 spray in one nostril if [...] 01/25/2021:Stage 0(cTis (DCIS), cN0, cM0, G3, ER-, CA-, HER2: Not Assessed) - Signed by Rachel [...] history exists Medical Devices Implanted Type Area Application Architect Manager Device Identifier Shelf Expiration Date Model / Serial / Lot Closing Agent Anastomosis [employer] Microvascular Stainless Steel Titanium Od2 Mm Ring Pin Protective Cover Jaw Assembly Sterile Latex Free Disposable - [id number] Implanted:Qty: 1 on 04/10/2021 by Rachel Bolanos MD at [facility] Main Other Left: Breast SYNOVIS 08/29/2025 [id number] / / [id number] Closing Agent Anastomosis [employer] Stainless Steel Polyethylene Od2.5 Mm Microvascular Ring Pin Protective Cover Jaw Assembly Sterile Latex Free Disposable - [id number] Implanted:Qty: 1 on 04/10/2021 by Rachel Bolanos MD at [facility] Main Other Left: Breast SYNOVIS 07/25/2025 [id number] / / [id number] Closing Agent Anastomosis [employer] Stainless Steel Polyethylene Od2.5 Mm Microvascular Ring Pin Protective Cover Jaw Assembly Sterile Latex Free Disposable - [id number] Implanted:Qty: 1 on 04/10/2021 by Rachel Barrow MD at [facility] Main Other Right: Breast [employer]IS 07/25/2025 [id number] / / [id number] Procedures Procedure Name Priority Date/Time Associated Diagnosis [...] - 16 mmol/L 03/30/2023 11:03 AM EDT [facility] BUN 17 7 - 25 mg/dL 03/30/2023 11:03 AM EDT [facility] Creatinine 0.82 0.60 - 1.30 mg/dL 03/30/2023 11:03 AM EDT [facility] Glucose 91 70 - 100 mg/dL 03/30/2023 11:03 AM EDT [facility] Calcium 9.4 8.6 - 10.3 mg/dL 03/30/2023 11:03 AM EDT [facility] Osmolality, Calculated 285 278 - 305 mOsm/kg 03/30/2023 11:03 AM EDT [facility] EGFR 74 03/30/2023 11:03 AM EDT [facility] Comment:As of 2021, the estimated [...] MD LAB BLOOD ORDERABLES Final R esult [facility] [address] [place] [address], [facility] * TSH (Thyroid Stimulating Hormone) (11/23/2013 12:37 PM EDT) TSH 1.28 0.45 - 4.50 mIU/L 11/23/2013 3:08 PM EDT [facility] Serum specimen (specimen) 11/23/2013 12:37 PM EDT 11/23/2013 1:41 PM EDT Mckayla Larry MD LAB BLOOD ORDERABLES Final Res [facility] [address] [place] [address], [facility] from Last 3 Months or Most Recently Relevant to [place] [address] Advance Directives For more information, please contact: [phone] Documents on File Type Date Recorded Patient Striper Expl anation Advance Directive - scan 01/03/2012 2:24 PM * Full Code (Latest Code Status on File) Date Activated Date Inactivated Comments 04/10/2021 7:11 PM 04/14/2021 7:09 PM Care Teams Director Customer Relationship Specialty Start Date End Date Jerri Colvin [address] [place] [address] [place] [phone] PCP - General 09/13/21 Mckayla Larry MD Medical Oncologist Breast Oncology 06/02/12 Rachel Barrow MD Surgical Oncologist Breast Surgery 01/25/21 Rachel Barrow MD Initiating Oncologist Surgical Oncology 01/25/21 Leslee Hunter, CANOPY INSPECTOR Nurse Practitioner Surgical Oncology 01/25/21 Gianna Bullard, RN Registered Nurse Breast Surgery 01/25/21 Rachel Bolanos MD Surgical Oncologist Plastic Surgery 01/31/21 Kathy Payne MD [address] [place] [address] Surgical Oncologist Breast Oncology 04/20/21 Zhane Baker [address] [place] [id number] Nurse Practitioner [facility] Hematology 04/26/21 Stefan John MD [address] [facility] [place] [address] Surgical Oncologist Plastic Surgery 08/29/21
== END 2025-07-20 23:59 | disposition home or self-care (01) ==
LOC: LAB.DROPOF 07-22 09:01
PROVIDERS: PCP Nurse Practitioner Family; Visit Provider Nurse Practitioner
DX: R35.0 Frequency of micturition (principal)
CPT/HCPCS: 87086; 87088; 87186

== ENCOUNTER 2025-07-21 12:38 | Emergency (ER) | payer MEDICARE, SELFPAY ==
--- OUTSIDE RECORDS SUMMARY | 2016-03-12 09:16 | XMS_ITS | Encounter Summary ---
Author Organization [place] [address] Care Team Providers Care Educational Institution President Name Role Phone Duarte Romo MD, Mahesh Sandoval Primary Care Provid er Encounter Details Date Type Department Care Team (Latest Contact Info) Description 03/12/2016 10:16 AM EDT Hospital Encounter SE Referral Lab 1 [place], [place] [id number] Mahesh Bishop MD [address] [place] [address] Pain in right knee; Pain [...] RATE AUTOMATED (03/12/2016 12:00 PM EDT) Pathologist [facility] Sed Rate 24 0 - 30 mm/hr [facility] Blood specimen (specimen) 03/12/2016 12:00 PM EDT 03/12/2016 3:20 PM EDT us Mahesh Bishop MD HEMATOLOGY ORDERABLES Fi nal Result Performing Organization Address [facility] [place] [address] * CBC WITH AUTO DIFF (03/12/2016 12:00 PM EDT) [facility] WBC 5.5 4.0 - 11.0 x10(3)/mcL [facility] RBC 4.42 3.80 - 5.10 x10(6)/mcL [facility] Hgb 13.6 12.0 - 15.6 gm/dL [facility] Hct 39.2 35.7 - 45.9 % [facility] MCV 88.7 82.5 - 99.8 fL [facility] MCH 30.7 27.0 - 34.3 pg [facility] MCHC 34.6 32.1 - 35.3 gm/dL [facility] RDW 13.1 11.5 - 15.0 % [facility] Platelet 174 144 - 423 x10(3)/mcL [facility] MPV 9.0 6.8 - 10.8 fL [facility] Blood specimen (specimen) 03/12/2016 12:00 PM EDT 03/12/2016 3:20 PM EDT us Mahesh Bishop MD HEMATOLOGY ORDERABLES Fi nal Result Performing Organization Address [facility] Co de Phone Number [address] [address] * C-REACTIVE PROTEIN (03/12/2016 12:00 PM EDT) Pathologist [facility] CRP 1.88 <=5.00 mg/L [facility] Blood specimen (specimen) 03/12/2016 12:00 PM EDT 03/12/2016 3:20 PM EDT us Mahesh Bishop MD CHEMISTRY ORDERABLES Fin al Result [facility] 1 [place] [address] documented in this encounter Visit Diagnoses Diagnosis Pain in right knee Pain in joint, lower leg Pain in left knee Pain in joint, lower leg documented in this encounter Care Teams Educational Institution President Relationship Specialty Start Date End Date Mahesh Ramachandran Sr., MD [address] [place] [phone] PCP - General 08/22/11 03/13/20 documented as of this encounter
--- OUTSIDE RECORDS SUMMARY | 2020-03-02 13:26 | XMS_ITS | Encounter Summary ---
Author Organization [place] [address] Care Team Providers Care Rail Switch Operator Name Role Phone Duarte Romo MD, Mahesh Sandoval Primary Care Provid er Encounter Details Date Type Department Care Team (Latest Contact Info) Description 03/02/2020 2:26 PM EDT Hospital Encounter [facility] Referral Lab 1 [place], [place] [phone] Mahesh Bishop MD [address] [place] [address] Pain in left knee; Pain in right knee Social History Tobacco Use Types Packs/Day [...] this encounter Results * SEDIMENTATION RATE AUTOMATED (03/15/2020 10:02 AM EDT) Sed Rate 11 0 - 30 mm/hr 03/15/2020 4:48 PM EDT [facility] Blood Venipuncture / Unknown 03/15/2020 10:02 AM EDT 03/15/2020 10:02 AM EDT us Mahesh Bishop MD HEMATOLOGY ORDERABLES Fi nal Result [facility] 1 [facility] , [place] [address] * CBC WITH DIFF (03/15/2020 10:02 AM EDT) WBC 6.0 3.7 - 10.3 x10(3)/mcL 03/15/2020 3:49 PM EDT [facility] RBC 4.48 3.90 - 5.20 x10(6)/mcL 03/15/2020 3:49 PM EDT [facility] Hgb 13.8 11.2 - 15.7 g/dL 03/15/2020 3:49 PM EDT [facility] Hct 42.0 34.0 - 45.0 % 03/15/2020 3:49 PM EDT [facility] MCV 93.8 80.0 - 100.0 fL 03/15/2020 3:49 PM EDT [facility] MCH 30.8 26.0 - 34.0 pg 03/15/2020 3:49 PM EDT [facility] MCHC 32.9 30.7 - 35.5 g/dL 03/15/2020 3:49 PM EDT [facility] RDW 12.4 <=14.9 % 03/15/2020 3:49 PM EDT [facility] Platelet 197 155 - 369 x10(3)/mcL 03/15/2020 3:49 PM EDT [facility] MPV 11.1 8.8 - 12.5 fL 03/15/2020 3:49 PM EDT [facility] Neut Percent 66.1 % 03/15/2020 3:49 PM EDT [facility] Comment:Neutrophils equals s egs plus bands Imm Gran% 0.3 % 03/15/2020 3:49 PM EDT [facility], [facility] Comment:Automated count of m etamyelocytes, myelocytes and promyelocytes. Lymph Percent 21.5 % 03/15/2020 3:49 PM EDT [facility] [place] Percent 9.9 % 03/15/2020 3:49 PM EDT [facility] Eos Percent 1.7 % 03/15/2020 3:49 PM EDT [facility] Baso Percent 0.5 % 03/15/2020 3:49 PM EDT [facility] Neut # 3.9 1.6 - 6.1 x10(3)/mcL 03/15/2020 3:49 PM EDT [facility] [employer], [facility] Comment:Neutrophils equals s egs plus bands IMMGRAN# 0.0 0.0 - 0.1 x10(3)/mcL 03/15/2020 3:49 PM EDT [facility] [facility], [facility] Comment:Automated count of m etamyelocytes, myelocytes and promyelocytes. An absolute IG <0.1 is reported as 0.0. Lymph # 1.3 1.2 - 3.9 x10(3)/mcL 03/15/2020 3:49 PM EDT [facility] [place] # 0.6 0.3 - 0.9 x10(3)/mcL 03/15/2020 3:49 PM EDT [facility] [facility], [facility] Eos# 0.1 0.0 - 0.5 x10(3)/mcL 03/15/2020 3:49 PM EDT [facility] [employer], [facility] Baso # 0.0 0.0 - 0.1 x10(3)/mcL 03/15/2020 3:49 PM EDT [facility] [employer], [facility] Blood Venipuncture / Unknown 03/15/2020 10:02 AM EDT 03/15/2020 10:02 AM EDT us Mahesh Bishop MD HEMATOLOGY ORDERABLES Fi nal Result [facility], [facility] [address] [facility] , [address] [place], [place] [id number] * C-REACTIVE PROTEIN (03/15/2020 10:02 AM EDT) CRP 1.76 <=5.00 mg/L 03/15/2020 4:32 PM EDT [facility] Blood Venipuncture / Unknown 03/15/2020 10:02 AM EDT 03/15/2020 10:02 AM EDT us Mahesh Bishop MD CHEMISTRY ORDERABLES Fin al Result [facility] [address] [facility] , [place] [address] documented in this encounter Visit Diagnoses Diagnosis Pain in left knee Pain in joint, lower leg Pain in right knee Pain in joint, lower leg documented in this encounter Care Teams Rail Switch Operator Relationship Specialty Start Date End Date Mahesh Ramachandran Sr., MD [address] [place] [phone] PCP - General 08/22/11 03/13/20 documented as of this encounter
[2025-07-21] VITALS (9 sets, daily range): BP systolic 163–238; BP diastolic 91–143; PULSE 103–122; RESP 16–23; TEMP 37.2–37.3; O2SAT 93–100; BMI 25.6
[2025-07-21 12:50] LABS: Influenza A, PCR Not Detected (NotDetected); Influenza B, PCR Not Detected (NotDetected)
--- NOTE | 2025-07-21 12:55 | ED_ITS ---
<Statement entered by Collin Mcrae MD - 07/21/25 15:07> Collin Mcrae MD: I was consulted by the CARRILLO, and we discussed the complexity of the problems being addressed. I approved the treatment and management plan for this patient's care in the emergency department, thus performing a substantive portion of the medical decision making. Patient not in significant respiratory distress appropriate for outpatient management at this time will be covered for possible developing right lower lobe pneumonia with Augmentin. Discharge Plan Disposition Patient Disposition: Home, Self-Care Prescriptions Prescriptions: New Paxlovid 150 mg (10)- 100 mg (10) tablets,dose pack See Rx Instructions .ROUTE .COMPLEX Qty: 20 0RF Rx Instructions: orally per package directions amoxicillin-pot clavulanate [Augmentin] 500-125 mg tablet 1 tab PO BID Qty: 10 0RF No Action phenazopyridine [Pyridium] 200 mg tablet 200 mg PO Q8H 2 Days Qty: 6 0RF cefdinir 300 mg capsule 300 mg PO BID 10 Days Qty: 20 0RF levocetirizine 5 mg tablet 5 mg PO DAILY famotidine 40 mg tablet 40 mg PO DAILY Qty: 30 0RF triamcinolone acetonide 0.1 % cream 1 applic topical TID Qty: 80 0RF levocetirizine [Xyzal] 5 mg tablet 5 mg PO DAILY Qty: 30 2RF omeprazole 20 mg capsule,delayed release(DR/EC) 20 mg PO DAILY 90 Days Qty: 90 3RF carvedilol 12.5 mg tablet 12.5 mg PO DAILY Qty: 90 2RF rosuvastatin 10 mg tablet 10 mg PO DAILY Qty: 90 1RF venlafaxine 75 mg capsule,extended release 24hr See Rx Instructions .ROUTE .COMPLEX Qty: 90 3RF Dose Instruction: TAKE 1 CAPSULE BY MOUTH DAILY Rx Instructions: TAKE 1 CAPSULE BY MOUTH DAILY fluconazole 150 mg tablet 150 mg PO Q3D Qty: 2 0RF Rx Instructions: may repeat second dose 72 hrs after first dose if symptoms persist hydrochlorothiazide 25 mg tablet See Rx Instructions .ROUTE .COMPLEX Qty: 90 3RF Dose Instruction: TAKE 1 TABLET BY MOUTH DAILY Rx Instructions: TAKE 1 TABLET BY MOUTH DAILY levothyroxine 25 mcg tablet See Rx Instructions .ROUTE .COMPLEX Qty: 90 3RF Dose Instruction: TAKE 1 TABLET BY MOUTH DAILY FOR THYROID Rx Instructions: TAKE 1 TABLET BY MOUTH DAILY FOR THYROID lisinopril 40 mg tablet 40 mg PO DAILY Qty: 90 3RF Referrals Follow up/Referrals: Jerri Colvin APRN [Primary Care Provider, Medical] - See instructions Activity Restrictions/Add. Instructions Additional Instructions/Restrictions: You have been seen in the emergency room department today and were diagnosed with COVID. You will be called in a prescription for Augmentin, you should finish these antibiotics completely. You should stop taking the Cefdinir while on the Augmentin. You can take [id number] Motrin and Tylenol as needed for chills, body aches, fever. You may also take [id number] antitussives as needed for cough. I will also send you in a prescription for Paxlovid. Return to the emergency room should you experience worsening shortness of breath or if your symptoms worsen. Clinical Impressions Clinical Impression: COVID Instructions Patient Instructions: Cough Print Language Print Language: Tajik Discharge ED Provider: Collin Mcrae HPI General Chief Complaint: Cough Stated Complaint: Cough, Congestion, & SOA Time Seen by Provider: 07/21/25 12:46 History of Present Illness HPI narrative: Shirin Nielson is a 79-year-old female past medical history significant for HTN, hypothyroid, GERD who presents emergency room today with complaints of bodyaches, chills, generalized malaise and fatigue, and shortness of breath. Ms. Nielson states that she was diagnosed with UTI couple of days ago. Has been on cefdinir. Reports yesterday, she began having bodyaches and chills. Stated she began coughing last night. Reporting congestion in her sinuses. Having some shortness of breath today, no chest pain. No known sick contacts. States she was mildly febrile with Tmax of 100.1. Has taken Tylenol. No productive cough noted. Does not take any blood thinners. No history of DVT or PE. No recent travel. No other complaints at this time. Please note that the above description of symptoms, and this electronic medical record under categorization of recalled from ER triage doctor by RN are reflective of an initial nursing assessment, however, is not reflective of my full history and physical exam that was personally taken and clarified. Consequentially, this proceeding description of symptoms, which may include the patient's cauterized chief complaint in the EMR, do not reflect my personal clinical impression, and the ultimate description of the history of present illness stated complaints should be deferred to this section of this note. Unless stated otherwise were congruent with the section of the note, additional signs, symptoms, or incongruence can be interpreted as in or accurate with my clinical impression. Related Data Home Medications ?Medication ?Instructions ?Recorded ?Confirmed levocetirizine 5 mg tablet 5 mg PO DAILY 03/03/2406/28 Previous Rx's ?Medication ?Instructions ?Recorded carvedilol 12.5 mg tablet 12.5 mg PO DAILY #90 tabs omeprazole 20 mg capsule,delayed 20 mg PO DAILY 90 day s #90 caps 12/28/24 release rosuvastatin 10 mg tablet 10 mg PO DAILY #90 tabs 10/19 venlafaxine 75 mg capsule,extended See Rx Instructions .Route 03/07/25 release 24 hr .COMPLEX #90 caps famotidine 40 mg tablet 40 mg PO DAILY #30 tabs 09/21 levocetirizine 5 mg tablet (Xyzal) 5 mg PO DAILY #30 t abs 03/29/25 triamcinolone acetonide 0.1 % 1 applic topical TID #80 grams 03/29/25 topical cream fluconazole 150 mg tablet 150 mg PO Q3D 2 doses #2 tab s 04/12/25 hydrochlorothiazide 25 mg tablet See Rx Instructions . Route 06/08/25 .COMPLEX #90 tabs levothyroxine 25 mcg tablet See Rx Instructions .Route 06/08/25 .COMPLEX #90 tabs lisinopril 40 mg tablet 40 mg PO DAILY #90 tabs 06/27 12/19 cefdinir 300 mg capsule 300 mg PO BID 10 days #20 ca ps 07/20/25 phenazopyridine 200 mg tablet 200 mg PO Q8H 2 days #6 tabs 07/20/25 (Pyridium) amoxicillin 500 mg-potassium 1 tab PO BID #10 tabs clavulanate 125 mg tablet (Augmentin) nirmatrelvir 150 mg (10)-ritonavir See Rx Instructions PO .COMPLEX 07/21/25 100 mg (10) tablets in a dose pack #20 tabs (Paxlovid) Allergies Allergy/AdvReac Type Severity Reaction Status Date / Time No Known Allergies Allergy Verified 07/20/25 14:39 [facility] Disclaimer: The information contained in this section may have been updated after the patient was seen, as this information can be updated by other users. Medical History Diverticulosis Bunion of great toe of right foot Bunion of left foot Seasonal allergies Post-nasal drip Hypothyroidism Hypertension Surgical History History of tonsillectomy History of left knee replacement History of right knee joint replacement History of abdominoplasty H/O mastectomy Family History Mother Cancer colon Thyroid disorder Sister Thyroid disorder Brother Cancer colon Social History Smoking Status: Never smoker alcohol intake: never current occupational status: retired Travel in the last 8 weeks?: None Have you lived/traveled outside US in past 30 days?: No Contact w/someone who lives/traveled outside US past 30 days?: No Exposure to someone with infectious disease in past 14 days?: No Do you have a fever (greater than 100.4 F or 38 C)?: No Have you tested positive for COVID-19?: No Exposed to someone with COVID-19 in past 14 days?: No Do you have a sore throat?: No Do you have a cough?: No Do you have any weakness?: No Do you have any diarrhea?: No Are you experiencing any unusual bleeding?: No Do you have any muscle aches/pain?: No Do you have any abdominal pain?: No Are you experiencing loss of taste or smell?: No Other Medical History Have you received the Flu Vaccine for this season: No Have you received the Pneumonia Vaccine: Yes ROS Obtained: Yes All systems reviewed & no additional complaints except as documented Physical Exam General General appearance: alert and in no apparent distress Head Head exam: atraumatic and normocephalic Eye Eye exam: Present PERRL and EOMI Neck Neck exam: Present trachea midline Chest Chest inspection: Present symmetric chest wall rise Respiratory Respiratory exam: Present normal lung sounds bilaterally Cardiovascular Cardiovascular exam: Present regular rate and normal rhythm Abdominal Exam Abdominal exam: Present soft and normal bowel sounds; Absent tenderness Extremities Exam Extremities exam: Present normal inspection and full ROM Neurological Exam Neurological exam: Present alert and oriented X3 Skin Skin exam: Present warm, dry and intact HEART Score HEART Score HEART Score assessment performed?: Yes HEART Score: 3 Critical Care Critical Care Time Critical Care Time: No Medical Decision Making Jose Inquiry Pt receiving controlled substance: No Vital Signs Vital Signs: 07/21/25 12:42 07/21/25 12:45 07/21/25 12:46 Temperature 99 F Temperature Source Oral Pulse Rate 115 H 122 H Pulse Rate [Right] 114 H Respiratory Rate 16 Blood Pressure 238/130 H 216/143 H Blood Pressure [Right Arm] 213/113 H Blood Pressure Mean [Right Arm] 146 Blood Pressure Source Blood Pressure Source [Right Arm] Automatic Cuff Blood Pressure Position Blood Pressure Position [Right Arm] Supine 02 Sat by Pulse Oximetry 97 93 L 97 Oxygen Delivery Method Room Air 07/21/25 12:48 07/21/25 13:00 07/21/25 13:15 Temperature Temperature Source Pulse Rate 121 H 114 H 110 H Pulse Rate [Right] Respiratory Rate Blood Pressure 213/113 H 171/100 H 180/104 H Blood Pressure [Right Arm] Blood Pressure Mean [Right Arm] Blood Pressure Source Blood Pressure Source [Right Arm] Blood Pressure Position Blood Pressure Position [Right Arm] 02 Sat by Pulse Oximetry 99 96 100 Oxygen Delivery Method 07/21/25 13:30 07/21/25 13:46 07/21/25 14:15 Temperature 99.2 F Temperature Source Oral Pulse Rate 111 H 107 H 103 H Pulse Rate [Right] Respiratory Rate 23 22 Blood Pressure 203/120 H 163/92 H 167/91 H Blood Pressure [Right Arm] Blood Pressure Mean [Right Arm] Blood Pressure Source Automatic Cuff Blood Pressure Source [Right Arm] Blood Pressure Position Supine Blood Pressure Position [Right Arm] 02 Sat by Pulse Oximetry 99 98 Oxygen Delivery Method Room Air Lab Data Labs: Lab Results 07/21/25 12:43: SARS-CoV-2 (PCR) Detected A, Influenza A Untype (PCR) Not detected, Influenza Type B (PCR) Not detected 07/21/25 13:00: WBC 6.1, RBC 4.67, Hgb 13.9, Hct 40.9, MCV 87.6, MCH 29.8, MCHC 34.0, RDW 13.5, Plt Count 201, MPV 10.5 H, Neut % (Auto) 70.4, Lymph % (Auto) 12.1, Dewey % (Auto) 15.9 H, Eos % (Auto) 1.0, Baso % (Auto) 0.3, Neut # (Auto) 4.3, Lymph # (Auto) 0.7, Dewey # (Auto) 1.0, Eos # (Auto) 0.1, Baso # (Auto) 0.0, Sodium 139, Potassium 4.5, Chloride 106, Carbon Dioxide 21 L, Anion Gap 16.5 H, BUN 21 H, Creatinine 0.80, Estimated Creat Clear 46, Estimated GFR 69, Est GFR ( Amer) 84, Glucose 97, Calcium 9.4, Total Bilirubin 0.9, AST 57 H, ALT 55, Alkaline Phosphatase 123, Troponin I < 0.01, Total Protein 7.7, Albumin 4.8, Globulin 2.9, Albumin/Globulin Ratio 1.7, HCV Ab BAILEY w/Rflx PCR Qn Negative, HIV Ag/Ab Combo Qual Negative 07/21/25 13:00 07/21/25 13:00 Response Orders (Tests/Meds): ED MEDICATIONS Generic Name Dose Route Start Last Admin Trade Name Freq PRN Reason Stop Dose Admin Amoxicillin/Clavulanate Potassium 1 each 07/21/25 14:05 07/21/25 14:13 Amoxicillin/Clavulanate Potassium 875/125mg Tablet PO 07/21/25 14:06 1 each ONCE ONE Administration Carvedilol 12.5 mg 07/21/25 12:54 07/21/25 13:30 Carvedilol 12.5mg Tablet PO 07/21/25 12:55 Not Given ONCE ONE Lidocaine HCl 5 ml 07/21/25 12:53 07/21/25 13:06 Lidocaine 2% 5ml Pf Vial IH 07/21/25 12:54 5 ml ONCE ONE Administration ORDERS Category Date Time Status CXR 2 view (NOT portable) [XR chest 2V] Stat Exams 07/21/25 13:00 Completed CBC w/Auto Diff [Complete Blood Count Auto Diff] Stat Lab 07/21/25 13:00 Completed CMP [Comprehensive Metabolic Panel] Stat Lab 07/21/25 13:00 Completed HIV Combo Stat Lab 07/21/25 13:00 Completed Hepatitis C Ab Qual. W/ RFX Stat Lab 07/21/25 13:00 Completed Rapid PCR Covid and Flu A/B Stat Lab 07/21/25 12:43 Completed Trop I [Troponin I] Stat Lab 07/21/25 13:00 Completed Troponin I Q3H Lab 07/21/25 16:00 Ordered Troponin I Q3H Lab 07/21/25 19:00 Ordered MDM Narrative Medical Decision Narrative: In summary patient is an 79-year-old female who presents emergency department for evaluation of shortness of breath, generalized malaise and fatigue, body aches, chills. Patient states her symptoms started yesterday. Worsened throughout the night to include worsening cough, nonproductive. No complaints of chest pain. No known sick contacts. No history of DVT or PE. Mildly febrile with Tmax of 100.1. Has taken Tylenol.. Patient is hypertensive, mildly tachycardic with heart rate in the 110s. SpO2 at 97% on room air. Upon arrival, afebrile. Unremarkable nonfocal physical exam. Heart rate sinus tach on the monitor. Differential diagnosis includes influenza, PE, COVID, pneumonia. Initial workup will be conducted with hematologic labs, 2 view chest x-ray, respiratory swabs. Initial interventions include lidocaine nebulizer. Initial workup reviewed by ca hematologic labs essentially unremarkable. Patient is noted to be COVID-positive. Two-view chest x-ray showed very subtle haziness in the right lower lobe. Patient without leukocytosis. Mildly febrile with Tmax at 99.2. EKG without ST elevation. Upon repeat evaluation after having her nebulizer, patient reports an improvement in her coughing and shortness of breath. Blood pressure has also improved. Patient states she did not take her blood pressure medications this morning before coming to the emergency room. Patient continues to be on room air. States she is feeling better. Did consider ordering a CT of the chest, however, given patient's diagnosis of COVID and lungs were clear to auscultation in all lung santos, I do believe that COVID is the explainable issue causing her symptoms. Given this patient appropriate for discharge at this home. Patient is eager to go home and rest. With that subtle haziness in her right lower lobe, would like to prophylactically treat for possible superimposed bacterial pneumonia with her COVID. Patient without leukocytosis which is reassuring. She was given a prescription for Augmentin and Paxlovid of which her and her pharmacist and provider can decide if she would like to take this Paxlovid. She was given strict return precautions to the emergency room.
--- OUTSIDE RECORDS SUMMARY | 2025-07-21 12:59 | XMS_ITS | Continuity of Care Document ---
Author Organization [facility] Address [address] [place] [address] Phone Care Team Providers Care Tutoring Assistant Name Role Phone Alber Phillipsw Primary Care Provider Encounters Date Type Department Care Team Description 01/08/2023 6:15 AM EDT - 01/08/2023 11:59 PM EDT Hospital Encounter [facility] [address] [place] [address] Hilda Parish APRN Vermani, Samir D, MD Gastroesophageal reflux disease without esophagitis; Dysphagia, unspecified type; Garcia's esophagus without dysplasia; Polyp of colon, unspecified part of colon, unspecified type; Family hx of colon cancer Discharge Disposition: Home or Self Care 12/31/2022 Orders Only [facility] [address] [place] [address] Vincenzo Elmore MD Screening for colon cancer (Primary Dx) 11/26/2022 9:50 AM EDT Telemedicine [facility] [address] [facility] [place] [address] Hilda Parish APRN Gastroesophageal reflux disease without esophagitis (Primary Dx); Dysphagia, unspecified type; Polyp of colon, unspecified part of colon, unspecified type; Family hx of colon cancer; Garcia's esophagus without dysplasia 11/21/2022 Telephone [facility] [address] [place] [address] Vincenzo Elmore MD Procedure 10/05/2021 10:40 AM EST Office Visit [facility] NPTFTT [address] [place] [address] Iza Ortega MD Screening mammogram, encounter for (Primary Dx); Well woman exam 10/31/2020 Telephone [facility] [address] [phone] Alex Luong MD Results (lab results from [facility]) 10/11/2020 Travel 10/11/2020 10:30 AM EDT Office Visit [facility] [address] [address] Alex Luong MD Other hyperlipidemia (Primary Dx); Malignant hypertension; Obstructive sleep apnea 09/12/2020 Telephone [facility] [address] [address] Alex Luong MD Results (ROSA M Sleep Study Report.) 08/14/2020 Travel 08/14/2020 9:45 AM EST - 08/14/2020 10:00 AM EST Surgery [facility] [address] [place] [address] Arie Mcnair MD CATARACT EXTRACTION WITH PHACOEMULSIFICATION AND INTRAOCULAR LENS 08/14/2020 10:11 AM EST Anesthesia Event [facility] [address] [place] [address] Obey Alas MD Stroupe, Howard L IV, MD 08/14/2020 8:38 AM EST - 08/14/2020 11:12 AM EST Hospital Encounter [facility] [address] [place] [address] Arie Mcnair MD Discharge Disposition: Home or Self Care 08/10/2020 9:46 AM EST - 08/10/2020 11:59 PM EST Hospital Encounter [facility] [address] [place] [address] Covid19, [facility] Pre-op testing; Encounter for laboratory testing for COVID-19 virus Discharge Disposition: Home or Self Care 08/01/2020 Telephone [facility] [address] [place] [phone] Alex Luong MD Dizziness 07/31/2020 Travel 07/31/2020 10:45 AM EST - 07/31/2020 11:00 AM EST Surgery [facility] [address] [place] [address] Arie Mcnair MD CATARACT EXTRACTION WITH PHACOEMULSIFICATION AND INTRAOCULAR LENS 07/31/2020 10:26 AM EST Anesthesia Event [facility] [address] [place] [address] Mitch Allan IV, MD Grigorieva, Anastassia, MD 07/31/2020 9:28 AM EST - 07/31/2020 11:23 AM EST Hospital Encounter [facility] [address] [place] [address] Arie Mcnair MD Discharge Disposition: Home or Self Care 07/27/2020 11:39 AM EST - 07/27/2020 11:59 PM EST Hospital Encounter [facility] [address] [place] [address] Covid19, [facility] Pre-op testing; Encounter for laboratory testing for COVID-19 virus Discharge Disposition: Home or Self Care 07/17/2020 Travel 07/11/2020 Travel 07/11/2020 9:47 AM EST - 07/11/2020 11:59 PM EST Hospital Encounter [facility] [address] [facility] [address] [place] [address] Alex Luong MD Malignant hypertension Discharge Disposition: Home or Self Care 07/11/2020 10:45 AM EST Office Visit [facility] [address] [place] [address] Alex Luong MD Malignant hypertension (Primary Dx); Other hyperlipidemia 07/10/2020 Telephone [facility] [address] [phone] Alex Luong MD Results (Lab Work ) 07/07/2020 Telephone [facility] [address] [phone] Alex Luong MD Non-scheduled Referral 07/06/2020 Travel 07/06/2020 3:15 PM EST Office Visit [facility] [address] [phone] Alex Luong MD Malignant hypertension (Primary Dx); Other hyperlipidemia; Chest discomfort; Insomnia, unspecified type 03/15/2020 10:00 AM EDT - 03/15/2020 10:01 AM EDT Hospital Encounter [facility] [address] [address] Mahesh Bishop MD Pain in left knee; Pain in right knee Discharge Disposition: Home or Self Care 03/15/2020 Travel 03/15/2020 10:02 AM EDT - 03/15/2020 11:59 PM EDT Hospital Encounter [facility] [address] [place] [address] Mahesh Bishop MD Left knee pain, unspecified chronicity Discharge Disposition: Home or Self Care 03/15/2020 10:00 AM EDT Hospital Encounter [facility] [address], [place] [address] Mahesh Bishop MD Right knee pain, unspecified chronicity Discharge Disposition: Home or Self Care 03/14/2020 Travel 03/02/2020 2:26 PM EDT Hospital Encounter [facility] Referral Lab [address] [place] [address] Mahesh Bishop MD Pain in left knee; Pain in right knee 01/30/2018 1:00 PM EDT Office Visit [facility] NPTFTT [address] [place] [phone] Iza Ortega MD Well woman exam (Primary Dx) 01/23/2017 Telephone [facility] N[facility] [address] [place] [address] Iza Ortega MD Results 01/07/2017 2:45 PM EDT - 01/07/2017 11:59 PM EDT Hospital Encounter [facility] [address] [place] [address] Iza Ortega MD Post-menopausal Discharge Disposition: Home or Self Care 01/07/2017 1:40 PM EDT Office Visit [facility] NPTT [address] [place] [address] Iza Ortega MD Post-menopausal (Primary Dx); Well woman exam with routine gynecological exam 11/04/2016 11:13 PM EDT - 11/05/2016 4:48 AM EDT [facility] [place] [address] Pablo Smith MD Situational anxiety (Primary Dx); Dyspnea, unspecified type Discharge Disposition: Home or Self Care 03/12/2016 11:56 AM EDT - 03/12/2016 11:59 PM EDT Hospital Encounter [facility] [address] [place] [address] Mahesh Bishop MD Pain in right knee; Pain in left knee Discharge Disposition: Home or Self Care 03/12/2016 10:16 AM EDT Hospital Encounter [facility] Referral Lab [address] [place] [address] Mahesh Bishop MD Pain in right knee; Pain in left knee 03/12/2016 11:48 AM EDT - 03/12/2016 11:55 AM EDT [facility] [address] [place] [address] Mahesh Bishop MD Bilateral knee pain Discharge Disposition: Home or Self Care 02/14/2016 Telephone [facility] [address] [phone] Maryjane Duron MD Results 12/28/2015 Telephone [facility] [address] [phone] Maryjane Duron MD Visit Follow Up 12/28/2015 10:34 AM EDT - 12/28/2015 11:59 PM EDT Hospital Encounter [facility] [address] [place] [address] Maryjane Duron MD Pelvic pain in female Discharge Disposition: Home or Self Care 12/27/2015 3:25 PM EDT - 12/27/2015 11:59 PM EDT Hospital Encounter [facility] [place] [address] Ductal carcinoma in situ (DCIS) of left breast; Family history of uterine cancer; Well woman exam with routine gynecological exam; HX: breast cancer Discharge Disposition: Home or Self Care 12/27/2015 8:00 AM EDT Office Visit [facility] [address] [phone] Maryjane Duron MD Well woman exam with routine gynecological exam (Primary Dx); Ductal carcinoma in situ (DCIS) of left breast; Pelvic pain in female; Family history of uterine cancer; HX: breast cancer 06/03/2015 2:47 PM EST - 06/03/2015 5:52 PM EST Emergency [facility] [place] [address] May Ray MD Pain in both lower extremities (Primary Dx) Discharge Disposition: Longterm Facility 05/29/2015 9:26 AM EST - 06/01/2015 4:04 PM EST Hospital Encounter [facility] 7D ORTHO [facility] [place] [place] [address] Mahesh Bishop MD Discharge Disposition: Longterm Facility 05/29/2015 12:00 PM EST - 05/29/2015 3:00 PM EST Surgery [facility] [place] [address] Mahesh Bishop MD ARTHROPLASTY, KNEE, TOTAL, BILATERAL 05/29/2015 12:03 PM EST Anesthesia Event [facility] [place] [address] Mahesh Rosas MD Merkle Serey, Jennifer L, NP 05/22/2015 1:00 PM EDT - 05/22/2015 11:59 PM EDT Hospital Encounter [facility] [place] [address] Provider, [facility] Total Joint Class Discharge Disposition: Home or Self Care 05/22/2015 11:15 AM EDT - 05/22/2015 12:59 PM EDT Hospital Encounter [facility] PRE-ADMIT TESTING [facility] [place] [address] Anticoagulation adequate (Primary Dx); Preop testing; Generalized OA Discharge Disposition: Home or Self Care 01/09/2015 10:15 AM EDT Office Visit [address] [phone] Jovi Villatoro DPM Congenital metatarsus primus varus (Primary Dx) 11/30/2014 5:15 AM EDT - 11/30/2014 11:59 PM EDT Hospital Encounter [facility] [place] [address] Routine gynecological examination Discharge Disposition: Home or Self Care 11/30/2014 11:00 AM EDT Office Visit [facility] [address] [place] [phone] Maryjane Duron MD Routine gynecological examination (Primary Dx) 10/03/2014 12:30 PM EDT Procedure visit [facility] [address] [place] [phone] Jovi Villatoro DPM Hallux valgus (acquired) (Primary Dx) 09/08/2014 12:00 PM EST Office Visit [address] [place] [phone] Jovi Villatoro DPM Hallux valgus (acquired) (Primary Dx) 08/18/2014 12:00 PM EST Office Visit [facility] [address] [address] Jovi Villatoro DPM Hallux valgus (acquired) (Primary Dx) 08/11/2014 12:00 PM EST Office Visit [address] [address] Jovi Villatoro, DPM Hallux valgus (acquired) (Primary Dx) 08/02/2014 2:30 PM EST Office Visit [facility] Podiatry [address] [place] [phone] Jovi Villatoro DPM Hallux valgus (acquired) (Primary Dx) 07/25/2014 1:00 PM EST - 07/25/2014 2:50 PM EST Surgery [facility] [address] [place] [address] Jovi Villatoro DPM BUNIONECTOMY TIGHT ROPE PROCEDURE 07/25/2014 11:31 AM EST - 07/25/2014 4:40 PM EST Hospital Encounter [facility] [address] [place] [phone] Jovi Villatoro DPM Discharge Disposition: Home or Self Care 07/19/2014 Orders Only [facility] Anesthesia [facility] [place] [address] Mahesh Russell MD Preop testing (Primary Dx) 03/15/2014 4:15 PM EDT Office Visit [facility] [address] [phone] Jovi Villatoro, OSMIN Hallux valgus, acquired, right (Primary Dx); Other hammer toe (acquired); Bunion, right 11/16/2013 4:15 AM EDT - 11/16/2013 12:29 PM EDT Hospital Encounter [facility] PROC[facility]ING [facility] [place] [address] Other screening mammogram; Routine gynecological examination Discharge Disposition: Home or Self Care 11/16/2013 12:30 PM EDT - 11/16/2013 11:59 PM EDT Hospital Encounter [facility] [address] [place] [address] Maryjane Duron MD Post-menopausal (Primary Dx) Discharge Disposition: Home or Self Care 11/16/2013 9:40 AM EDT Office Visit [facility] [address] [place] [address] Maryjane Duron MD Other screening mammogram (Primary Dx); Routine gynecological examination 10/20/2012 2:50 AM EDT - 10/20/2012 11:59 PM EDT Hospital Encounter [facility] [place] [address] Routine gynecological examination Discharge Disposition: Home or Self Care 10/20/2012 9:40 AM EDT Office Visit [facility] [address] [place] [address] Maryjane Duron MD Routine gynecological examination (Primary Dx); Breast cancer (HCC) 08/26/2011 8:00 AM EST - 08/26/2011 10:15 AM EST Surgery [facility] [address] [place] [address] Jovi Villatoro DPM BUNIONECTOMY WITH KYLAH OSTEOTOMY 08/26/2011 6:40 AM EST - 08/26/2011 10:56 AM EST Hospital Encounter [facility] SAME DAY [facility] [address] [place] [address] Jovi Villatoro DPM Discharge Disposition: Home or Self Care 08/23/2011 2:28 PM EST - 08/23/2011 11:59 PM EST Hospital Encounter [facility] E[facility] [address] [place] [address] Jovi Villatoro DPM Discharge Disposition: Home or Self Care 08/23/2011 10:53 AM EST - 08/23/2011 2:27 PM EST Hospital Encounter [facility] PRE-ADMIT TESTING [address] [place] [address] Pat, [facility] Discharge Disposition: Home or Self [...] mouth daily. 30 Tab 6 1 Active [id number] pjy-GzKe-WUy-as b-C (PLENVU) 140-9-5.2 gram Oral Powder in [...] Alive Social History Smoking Status as of 07/21/2025 Tobacco Use Types Packs/Day Years Used Date [...] on file Medical Devices Implanted Type Area Emergency Detail Driver Device Identifier Shelf Expiration Date Model / Serial / Lot Screw Compression Headless Thread Long 3.0 X 22mm - [id number] Implanted:Qty: 1 on 08/26/2011 by Jovi Villatoro DPM at [facility] Left: Toe SYNTHES-STRATEC: SYNTHES [facility] 02.226.12 2 / / Implant Bo Vo, Pro-Toe Size Zero Degrees Large - [id number] Implanted:Qty: 1 on 08/26/2011 by Jovi Villatoro DPM at [facility] Left: Toe 01/24/2019 5331-2068 / / Tightrope Mini Ft - [id number] Implanted:Qty: 1 on 07/25/2014 by Jovi Villatoro DPM at [facility] Right: Foot ARTHREX 04/27/2019 AR-8917DS / / [id number] Kit Disposable Pin Drill Trim-It 2mm X 100mm - [id number] Implanted:Qty: 1 on 07/25/2014 by Jovi Villatoro DPM at [facility] Right: Foot ARTHREX 12/27/2015 AR-4152DS / / [id number] Screw Low Profile Ti 2.4mm X 14mm Cannulated Partial Thread - [id number] Implanted:Qty: 1 on 07/25/2014 by Jovi Villatoro DPM at [facility] Right: Foot ARTHREX AR-8724-1 4PT / / Screw Micro Headless Comp Ft Cannulated Ti 2.5mm X 14mm - [id number] Implanted:Qty: 1 on 07/25/2014 by Jovi Villatoro DPM at [facility] Right: Foot ARTHREX AR-8725-1 4H / / Patella Porous 32mm X 10mm - [id number] Implanted:Qty: 1 on 05/29/2015 by Mahesh Bishop MD at [facility] Left: Knee GREG:GREG 10/28/2019 5878-065- 32 / / [id number] Pros Femoral Porous Cr Nexgen Size C Right - [id number] Implanted:Qty: 1 on 05/29/2015 by Mahesh Bishop MD at [facility] Right: Knee GREG:GREG 05/29/2023 5972-013- / / [id number] Patella Porous 32mm X 10mm - [id number] Implanted:Qty: 1 on 05/29/2015 by Mahesh Bishop MD at [facility] Right: Knee GREG:GREG 11/26/2024 5878-065- 32 / / [id number] Tibia Monoblock Cr Sz-3 10mm - [id number] Implanted:Qty: 1 on 05/29/2015 by Mahesh Bishop MD at [facility] Right: Knee GREG:GREG 09/27/2019 5886-043- / / [id number] Pros Femoral Porous Cr Nexgen Size C Left - [id number] Implanted:Qty: 1 on 05/29/2015 by Mahesh Bishop MD at [facility] Left: Knee GREG:GREG 09/26/2020 5972-013- / / [id number] Tibia Monoblock Cr Sz-3 10mm - [id number] Implanted:Qty: 1 on 05/29/2015 by Mahesh Bishop MD at [facility] Left: Knee GREG:GREG 04/26/2020 5886-043- 10 / / [id number] Lens Intraocular Preloaded 21.5 Diopter - [id number] Implanted:Qty: 1 on 07/31/2020 by Arie Mcnair MD at [facility] Right: Eye [facility]:SURG [id number] 03/24/2023 AU00T0.21 5 / [id number] / Lens Intraocular Preloaded 21.5 Diopter - [id number] Implanted:Qty: 1 on 08/14/2020 by Arie Mcnair MD at [facility] Left: Eye [facility]G [id number] 05/26/2023 AU00T0.21 5 / [id number] / Explanted Type Area Emergency Detail Driver Device Identifier Shelf Expiration Date Model / Serial / Lot Wire Guide 1.1mm Non Threaded - [id number] Implanted:08/26 by Jovi Villatoro DPM (Quantity not [...] 11:03 AM EDT Pelvic pain in female MANAGER GENERAL CYTOLOGY REPORT Routine 12/27/2015 8:14 AM EDT [...] Consult Dictated by Eugene Ramos MD, Dictation# [id number] Active Hospital Problems Diagnosis Primary osteoarthritis of both knees Hypothyroidism GERD (gastroesophageal reflux disease) HTN (hypertension) Resolved Hospital Problems Diagnosis No resolved problems to display. S/p BILATERAL TOTAL KNEE REPLACEMENT 05/29/15 Xarelto. Eugene Ramos ARTHROPLASTY, KNEE, TOTAL, BILATERAL 05/29/2015 12:05 PM EST Primary localized osteoarthrosis, lower leg, left Special Needs CPT;80628 REV; DATE CHG FROM 07/31/15 TO 05/29 [...] 12:46 PM EDT Congenital metatarsus primus varus MANAGER GENERAL CYTOLOGY REPORT Routine 11/30/2014 5:15 AM EDT [...] metatarsus primus varus Special Needs BETO CPT; 88441/43108/06425 HAMMER TOE REPAIR 07/25/2014 2:10 PM EST Hallux valgus (acquired) Other hammer toe (acquired) Congenital metatarsus primus varus Special Needs BETO CPT; 16518/74136/35434 BUNIONECTOMY TIGHT ROPE PROCEDURE 07/25/2014 2:10 PM EST Hallux valgus (acquired) Other hammer toe (acquired) Congenital metatarsus primus varus Special Needs BETO CPT; 08885/56396/36530 XR FOOT RIGHT AP LATERAL AND OBLIQUE Routine 03/15/2014 5:55 PM EDT Hallux valgus, acquired, right DX BONE DENSITY AXIAL SKELETON Routine 11/16/2013 1:15 PM EDT Post-menopausal MANAGER GENERAL CYTOLOGY REPORT Routine 11/16/2013 4:15 AM EDT MANAGER GENERAL CYTOLOGY REPORT Routine 10/20/2012 12:00 AM EDT SCANNED PRE/POST PROCEDURES 07/2011 9:32 PM EST SCANNED ANESTHESIA FORMS 012 9:32 PM EST SCANNED OR REPORT 08/26/2011 11:41 AM EST PATHOLOGY TISSUE REPORT Routine 08/26/19 12 8:45 AM EST EXCISION MASS FOOT/TOE/GANGLION 08/26/2011 8:06 AM EST HALLUX VALGUS HAMMERTOES LEFT Special Needs PHONE BUSYTONYA CPT 78420 99450 [id number] HAMMER TOE REPAIR 08/26/2011 8:06 AM EST HALLUX ELIOTGUS SIA LEFT Special Needs PHONE EMMY [facility] [phone] BUNIONECTOMY WITH KYLAH OSTEOTOMY 08/26/2011 8:06 AM EST [place] NNAMDI STOVALL LEFT Special Needs PHONE EMMY [facility] 75143 [phone] [id number] EK EKG 12 LEAD Routine 08/23/2011 11:19 [...] Vincenzo Elmore MD 01/08/2023 0743 Hilda Mccainridge CORRUGATOR MACHINE OPERATOR ENDOSCOPY PROCEDURE ORDERA BLES Final Result * [...] Role Brittani Garcia RN Nurse James Sawyer, MANUFACTURING PLANT CONTROLLER MANUFACTURING PLANT CONTROLLER Vincenzo Elmore MD Performing Provider Medications See [...] Vincenzo Elmore MD 01/08/2023 0807 Hilda Parish CORRUGATOR MACHINE OPERATOR ENDOSCOPY PROCEDURE ORDERA BLES Final Result * [facility] PATHOLOGY ORDER (01/08/2023 7:43 AM EDT) Tissue CARDIOESOPHAGEAL JUNCTION STRUCTURE / Unknown 01/08/2023 7:43 AM EDT Tissue specimen (specimen) STOMACH STRUCTURE / Unknown 01/08/2023 7:43 AM EDT Tissue specimen (specimen) TRANSVERSE COLON STRUCTURE / Unknown 01/08/2023 8:07 AM EDT Tissue specimen (specimen) ASCENDING COLON STRUCTURE / Unknown 01/08/2023 8:07 AM EDT Impressions [facility] - 01/08/2023 7:00 PM EDT A. [...] is no evidence of malignancy. Narrative [facility] - 01/08/2023 7:00 PM EDT Pathologist: Alber Handley MD Vincenzo Elmore MD VITAL[employer] - ORDERABLES Final Result Performing Organization Address [facility] Co de Phone Number [facility] [address] [place] [address] * INTRAOP AIRWAY PLACEMENT (08/14/2020 10:15 AM EST) Narrative [facility] - 08/14/2020 10:15 AM EST Jaquan Wild, MANUFACTURING PLANT CONTROLLER 08/14/2020 10:15 AM Intraop Airway Placement: Airway type: Nasal cannula salter Obey Alas MD [place] ANESTHESIA Final Resul t Performing Organization Address [facility] Co de Phone Number [facility] [address] [place] [address] * CORONAVIRUS 2019 (08/10/2020 9:44 AM EST) Only the most recent of2 resultswithin the time period is included. CORONAVIRUS [id number] Not Detected Not Detected 08/10/2020 8:16 PM EST [facility] Comment:Caution should be ex ercised when interpreting [...] EST 08/10/2020 9:44 AM EST Narrative [facility] [employer] - 08/10/2020 8:16 PM EST This test is a nucleic acid amplification test intended for the qualitative detection of nucleic acid from the SARS-CoV-2 in upper respiratory samples collected from individuals suspected of COVID-19. Test is performed on the [employer] Avery platform under the FDA's Emergency Use Authorization (EUA). Hologic Provider Fact Sheet: https://www.fda.gov/media/575636/download Hologic Patient Fact Sheet: https://www.fda.gov/media/880297/download us Arie Mcnair MD MICROBIOLOGY - GENERAL ORDER KARIME Final Result Performing Organization Address [facility] Co de Phone Number [facility] [address] [facility], [place] [address] * SCANNED RADIOLOGY REPORT (08/07/2020 2:58 PM EST) Anatomical Region Laterality Modality Other 08/07/2020 2:58 PM EST us Unknown Unknown IMG DIAGNOSTIC IMAGING ORDERABLE S Final Result * INTRAOP AIRWAY PLACEMENT (07/31/2020 10:32 AM EST) Narrative [facility] - 07/31/2020 10:32 AM EST Anuja West, MANUFACTURING PLANT CONTROLLER 07/31/2020 10:32 AM Intraop Airway Placement: Airway type: Nasal cannula salter us Mitch Allan IV, MD [place] ANESTHESIA Final Re sult Performing Organization Address [facility] Co de Phone Number [facility] [address] [place] [address] * [place] US VISCERAL VASCULAR COMPLETE (07/11/2020 10:27 AM [...] 10:45 AM CLINICAL HISTORY: M25.562-Pain in left renm-HJA-11-CM COMPARISON: Radiographs 02/02/2020, CT 03/12/2020 PROCEDURE COMMENTS: [...] 10:45 AM CLINICAL HISTORY: M25.562-Pain in left jkdi-YYH-31-CM COMPARISON: Radiographs 02/02/2020, CT 03/12/2020 PROCEDURE COMMENTS: [...] 10:45 AM CLINICAL HISTORY: M25.561-Pain in right taix-BEF-26-CM COMPARISON: Radiographs 02/02/2020, CT 03/12/2020 PROCEDURE COMMENTS: [...] 10:45 AM CLINICAL HISTORY: M25.561-Pain in right gfwx-UMA-47-CM COMPARISON: Radiographs 02/02/2020, CT 03/12/2020 PROCEDURE COMMENTS: [...] of2 resultswithin the time period is included. [facility] Sed Rate 11 0 - 30 mm/hr 03/15/2020 4:48 PM EDT [facility] Blood Venipuncture / Unknown 03/15/2020 10:02 AM EDT 03/15/2020 10:02 AM EDT Mahesh Bishop MD HEMATOLOGY ORDERABLES Fi nal Result [facility] [address] [place] [address] , [place] [address] * CBC WITH DIFF (03/15/2020 10:02 AM EDT) Only the most recent of4 resultswithin the time period is included. Pathologist [facility] WBC 6.0 3.7 - 10.3 x10(3)/mcL 03/15/2020 [...] 3:49 PM EDT [facility] [place] Percent 9.9 % 03/15/2020 3:49 PM EDT [...] - 0.1 x10(3)/mcL 03/15/2020 3:49 PM EDT [facility] [employer] Comment:Automated count of m etamyelocytes, myelocytes and promyelocytes. An absolute IG <0.1 is reported as 0.0. Lymph # 1.3 1.2 - 3.9 x10(3)/mcL 03/15/2020 3:49 PM EDT [facility] [employer] [place] # 0.6 0.3 - 0.9 x10(3)/mcL 03/15/2020 3:49 PM EDT [facility] [employer] Eos# 0.1 0.0 - 0.5 x10(3)/mcL 03/15/2020 3:49 PM EDT [facility] [employer] Baso # 0.0 0.0 - 0.1 x10(3)/mcL 03/15/2020 3:49 PM EDT [facility] [employer] Blood Venipuncture / Unknown 03/15/2020 10:02 AM EDT 03/15/2020 10:02 AM EDT us Mahesh Bishop MD HEMATOLOGY ORDERABLES Fi nal Result Performing Organization Address [facility] Co de Phone Number [facility] Backtrace I/O [address] , [place] [address] * C-REACTIVE PROTEIN (03/15/2020 10:02 AM EDT) Only the most recent of2 resultswithin the time period is included. [facility] CRP 1.76 <=5.00 mg/L 03/15/2020 4:32 PM EDT [facility] [employer], [facility] Blood Venipuncture / Unknown 03/15/2020 10:02 AM EDT 03/15/2020 10:02 AM EDT Mahesh Bishop MD CHEMISTRY ORDERABLES Fin al Result Performing Organization Address [facility] Co de Phone Number [facility] Backtrace I/O [address] [place] [address] * DX BONE DENSITY AXIAL SKELETON (01/07/2017 3:30 PM EDT) Only the most recent of2 resultswithin the time period is included. Anatomical Region Laterality Modality Dexa Scan 01/07/2017 Narrative 01/07/2017 4:29 PM EDT Indication: The patient is presently being monitored while on treatment and requires a bone density assessment. Study was performed on Sensum 3.2. Bone Density: Region BMD T-score Z-score [...] of3 resultswithin the time period is included. [facility] Troponin-T <0.01 <=0.00 ng/mL [facility] Comment: Values > or = 0.01 ng/mL have been shown to have prognostic value. Blood specimen (specimen) 11/05/2016 2:00 AM EDT 11/05/2016 2:08 AM EDT Pablo Smith MD CHEMISTRY ORDERABLES Final Result Performing Organization Address City/[facility] Co de Phone Number [facility] [address] [place] [address] * (ABNORMAL) D-DIMER (11/04/2016 11:57 PM EDT) [facility] D-Dimer 318(H) <=230 ng/mL D-DU [facility] Comment: This test has been clinically validated by the assorter and approved by the FDA for exclusion [...] HEMATOLOGY ORDERABLES Final Result Performing Organization Address City/[facility]/ZIP Co de Phone Number [facility] [address] [place] [address] * DIFFERENTIAL (11/04/2016 11:50 PM EDT) Only the most recent of3 resultswithin the time period is included. Pathologist [facility] Neut Percent 63.1 % [facility] Lymph Percent 23.2 % [facility] [place] Percent 11.6 % [facility] Eos Percent 1.3 % [facility] Baso Percent 0.8 % [facility] Neut# 5.5 1.8 - 7.7 x10(3)/[facility] Lymph# 2.0 0.6 - 4.8 x10(3)/mcL [facility] [place]# 1.0 0.0 - 1.3 x10(3)/[facility] Eos# 0.1 0.0 - 0.5 x10(3)/[facility] Baso# 0.1 0.0 - 0.2 x10(3)/[facility] Blood specimen (specimen) 11/04/2016 11:50 PM EDT 11/05/2016 12:02 AM EDT [facility] HEMATOLOGY ORDERABL ES Final Result Performing Organization Address City/State/[facility] [place] [address] * BASIC METABOLIC PANEL (11/04/2016 11:50 PM EDT) Only the most recent of4 resultswithin the time period is included. Sodium 139 136 - 145 mmol/L [facility] Potassium 4.0 3.5 - 5.0 mmol/L [facility] Chloride 100 98 - 107 mmol/L [facility] Total CO2 25 22 - 29 mmol/L [facility] Anion Gap 14 7 - 16 mmol/L [facility] Calcium 9.6 8.8 - 10.2 mg/dL [facility] Glucose Lvl 88 82 - 100 mg/dL [facility] BUN 17 8 - 23 mg/dL [facility] Creatinine 0.87 0.51 - 1.30 mg/dL [facility] GFR Afr Am >60 [facility] GFR Non Afr Am >60 [facility] Blood specimen (specimen) UPPER LIMB STRUCTURE / Unknown 11/04/2016 11:50 PM EDT 11/05/2016 12:02 AM EDT us Pablo Smith MD CHEMISTRY ORDERABLES Edited Result - Final [facility] [place] [address] [address] * XR CHEST PA AND LATERAL (11/04/2016 [...] PM EDT Stationary ECG Study [facility] Interpretive Statements SINUS RHYTHM Nonspecific STT changes [...] 12/28/2015 12:21 PM History: R10.2-Pelvic and perineal [id number]-BBV-21-CM Comparison: None Transabdominal and transvaginal imaging Findings: [...] 12/28/2015 12:21 PM History: R10.2-Pelvic and perineal jfmx-WGQ-65-CM Comparison: None Transabdominal and transvaginal imaging Findings: [...] IMG US ORDERABLES Final R esult * MANAGER GENERAL CYTOLOGY REPORT (12/27/2015 8:14 AM EDT) Only the most recent of4 resultswithin the time period is included. Group Leader [employer] Cytology Report PATIENT NAME:SHIRIN DOVE Group Leader [employer] Cytology Report Accession Number Collected Date/Time Received Date/Time [id number] 12/27/15 08:14 EDT 12/27/15 15:44 EDT GY [...] before definitive therapy. Processed using the ThinPrep Edger Machine Setter automated cytology screening device ([employer]). Formula Maker: LUCY 12/28/2015 Completed by: Adali Allison (Electronically signed by) 12/28/2015 [facility] 12/27/2015 8:14 AM EDT us Maryjane Duron MD PATHOLOGY ORDERABLES Daina l Result [facility] [address] [place] [address] * SCANNED RHYTHM STRIPS (06/05/2015 11:02 AM [...] included. Hgb 10.7(L) 12.0 - 15.6 gm/dL [facility] Hct 31.1(L) 35.7 - 45.9 % [facility] Blood specimen (specimen) 06/01/2015 5:27 AM EST 06/01/2015 5:55 AM EST Narrative [facility] - 06/01/2015 6:09 AM EST Call MD if Hct is less than 28 us Mahesh Bishop MD HEMATOLOGY ORDERABLES Fi nal Result Performing Organization Address City/State/[facility] [place] [address] * NM LUNG SCAN PERFUSION ONLY (05/31/2015 [...] EST) Final No growth at 2 days. [facility] Urine specimen (specimen) 05/31/2015 12:32 PM EST 05/31/2015 2:10 PM EST Octavia Ramos MD MICROBIOLOGY - GENERAL [place] [address] * (ABNORMAL) URINALYSIS (05/31/2015 12:32 PM EST) Only the most recent of2 resultswithin the time period is included. UA Color Yellow [facility] UA Appear Hazy(A) Clear [facility] UA Glucose Negative Negative [facility] UA Ketones Trace (5 mg/dl)(A) Negative [facility] UA Blood Negative Negative [facility] UA pH 6.0 4.8 - 8.0 [facility] Comment:Reference range emily d for random specimens only. UA Protein Negative Negative [facility] UA Urobilinogen Normal <=1 mg/dl [facility] UA Nitrite Negative Negative [facility] UA Leuk Est Negative Negative [facility] UA Spec Grav 1.009 1.001 - 1.035 [facility] Comment:Reference range emily d for random specimens only. UA WBC <1 0 - 4 /HPF [facility] UA Mucus Trace [facility] UA Hyal Cast 1 0 - 2 /LPF [facility] UA Trans Epi <1 /HPF [facility] Urine specimen (specimen) STRUCTURE OF URINARY TRACT PROPER / Unknown 05/31/2015 12:32 PM EST 05/31/2015 12:39 PM EST us Octavia Ramos MD URINE ORDERABLES Final Resul t Performing Organization Address City/[facility]/[place] [address] * (ABNORMAL) CBC (05/31/2015 9:57 AM EST) WBC 12.0(H) 4.0 - 11.0 x10(3)/mcL [facility] RBC 3.56(L) 3.80 - 5.10 x10(6)/mcL [facility] Hgb 10.9(L) 12.0 - 15.6 gm/dL [facility] Hct 31.8(L) 35.7 - 45.9 % [facility] MCV 89.4 82.5 - 99.8 fL [facility] MCH 30.5 27.0 - 34.3 pg [facility] MCHC 34.1 32.1 - 35.3 gm/dL [facility] RDW 12.8 11.5 - 15.0 % [facility] Platelet 168 144 - 423 x10(3)/mcL [facility] MPV 8.9 6.8 - 10.8 fL [facility] Blood specimen (specimen) UPPER LIMB STRUCTURE / Unknown 05/31/2015 9:57 AM EST 05/31/2015 10:03 AM EST Octavia Ramos MD HEMATOLOGY ORDERABLES Final Result Performing Organization Address City/[facility]/[place] [address] * (ABNORMAL) NT PROBNP (05/31/2015 9:57 AM EST) NT Pro-BNP 840(H) <=319 pg/mL [facility] Comment: An NT pro-BNP level less than 300 pg/mL in any patient, regardless of age, Effectively rules out acute CHF with a 99% negative predictive value. Blood specimen (specimen) UPPER LIMB STRUCTURE / Unknown 05/31/2015 9:57 AM EST 05/31/2015 10:03 AM EST Octavia Ramos MD CHEMISTRY ORDERABLES Final R esult Performing Organization Address City/[facility]/ZIP Co de Phone Number [facility] [address] [place] [address] * (ABNORMAL) BLOOD GAS ARTERIAL (05/31/2015 9:57 AM EST) Pathologist [facility] pH 7.410 7.370 - 7.440 [facility] pCO2 48(H) 32 - 45 mmHg [facility] pO2 115(H) 80 - 95 mmHg [facility] HCO3 30(H) 20 - 29 mmol/L [facility] TCO2 32(H) 21 - 30 mmol/L [facility] Base Excess 4.8(H) -2.8 - 2.3 mEq/L [facility] O2 Sat 99(H) 95 - 97 % [facility] Inspired O2 3.5L [facility] Specimen Type Arterial [facility] Blood specimen (specimen) UPPER LIMB STRUCTURE / Unknown 05/31/2015 9:57 AM EST 05/31/2015 10:03 AM EST Octavia Ramos MD CHEMISTRY ORDERABLES Final R esult Performing Organization Address City/[facility]/ZIP Co de Phone Number [facility] [address] [place] [address] * XR CHEST AP PORTABLE (05/31/2015 9:46 [...] identified in the chest. Octavia Ramos MD [facility] ORDER KARIME Final Result * [...] MD BLOOD BANK ORDERABLES Fi nal Result [facility] [address] [place] [address] * STAPHYLOCOCCUS AUREUS SCREEN (05/22/2015 1:20 PM EDT) Final No growth of Staphylococcus aureus [facility] Specimen from nose (specimen) 05/22/2015 1:20 PM EDT 05/22/2015 1:30 PM EDT us Mahesh Bishop MD MICROBIOLOGY - GENERAL O RDERABLES Final Result [facility] [address] [place] [address] * ABORH (05/22/2015 1:20 PM EDT) ABOR Int O POS [facility] Blood specimen (specimen) 05/22/2015 1:20 PM EDT 05/22/2015 1:23 PM EDT us Mahesh Bishop MD BLOOD BANK ORDERABLES Fi nal Result Performing Organization Address [facility] de Phone Number [facility] [address] [place] [address] * (ABNORMAL) PARTIAL THROMBOPLASTIN TIME (05/22/2015 1:20 PM EDT) PTT 36.0(H) 26.7 - 35.9 second(s) [facility] Comment: Therapeutic range for direct thrombin [...] ORDERABLES Fi nal Result Performing Organization Address [facility] de Phone Number [facility] [address] [place] [address] * PT / INR (05/22/2015 1:20 PM EDT) PT 11.1 9.3 - 12.3 second(s) [facility] INR 1.04 0.87 - 1.15 [facility] Comment: Level of Therapy Indications Target INR Range Standard Dose Treatment and prophylaxis of venous 2.0 - 3.0 thrombosis, pulmonary embolism High Dose High risk patients with mechanical 2.5 - 3.5 heart valves Blood specimen (specimen) 05/22/2015 1:20 PM EDT 05/22/2015 1:24 PM EDT us Mahesh Bishop MD HEMATOLOGY ORDERABLES Fi nal Result Performing Organization Address [facility]/State/ZIP Co de Phone Number [facility] [address] [place] [address] * ANTIBODY SCREEN IGG (05/22/2015 1:20 PM EDT) ABSC IgG Int Negative [facility] Blood specimen (specimen) 05/22/2015 1:20 PM EDT 05/22/2015 1:23 PM EDT us Mahesh Bishop MD BLOOD BANK ORDERABLES Fi nal Result [facility] [address] [place] [address] * XR FOOT RIGHT AP LATERAL AND [...] Report Accession Number Collected Date/Time Received Date/Time [id number] 08/26/11 08:45 EST 08/26/11 13:20 EST Diagnosis Ganglion cyst, excision: - Benign synovial cyst. JOELLE PORTER MD (Electronicall y signed by) Verified: 08/27/2011 [facility] Clinical Information Hallux valgus hammertoe left [...] performed and the findings corroborate the diagnosis. [facility] 08/26/2011 8:45 AM EST us Jovi Villatoro DPM PATHOLOGY ORDERABLES Final Result Performing Organization Address City/State/[facility] Co de Phone Number [facility] [address] [place] [address] Visit Diagnoses Diagnosis Start Date Routine gynecological [...] hypertension Unspecified essential hypertension 05/29/2015 Care Teams Tutoring Assistant Relationship Specialty Start Date End Date Alber Phillips [address] [place] [address] PCP - General Family Medicine 03/14/20
--- OUTSIDE RECORDS SUMMARY | 2025-07-21 12:59 | XMS_ITS | Encounter Summary ---
Author Organization [facility] Address [address] [place] [address] Care Team Providers Care Physical Therapy Attendant Name Role Phone Mckayla Larry MD Unavailable [phone] System, Provider Not In Primary Care Provider Un available Pcp, No Primary Care Provider [phone] -[phone] Alber Phililps MD Primary Care Provider [phone] Pcp, No Primary Care Provider +[phone] -[phone] Rachel Barrow MD Unavailable [phone] Rachel Barrow MD Unavailable [phone] Leslee Hunter THEATER EDUCATION TEACHER Unavailable [phone] Gianna Bullard RN Unavailable UnavailRachel Quintana MD Unavailable Cristobal troncoso Unknown, Attending Provider Primary Care Provide r Unavailable Pcp, No Primary Care Provider +[phone] -0000 Kathy Payne MD Unavailable Zhane Baker Unavailable Pcp, No Primary Care Provider [phone] Stefan John MD Unavailable [phone] Jerri Colvin Primary Care Provider [phone] Source Comments This information has been disclosed [...] release of HIV test results or diagnoses. [id number] Reason for Referral * Diagnostic Imaging (Routine) - Closed Specialty Diagnoses / Procedures Referred By Contcynthia t Referred To Contact Diagnoses Visit for screening mammogram Procedures Mammography Screening Bilateral incl CAD Jerri Colvin [address] [place] [address] [place] [phone] Phone: tel: fax: Referral ID Status Reason Start Date Expiration Date Visits Re quested Visits Authorized [id number] Closed 12/16/2018 06/14/2019 1 1 Encounter Details Date Type Department Care Team (Late st Contact Info) Description 12/16/2018 Orders Only [address] [phone] Jerri Colvin [address] [place] [address] [place] [phone] Visit for screening mammogram (Primary Dx) Social [...] mammogram documented in this encounter Care Teams Physical Therapy Attendant Relationship Specialty Start Date End Date System, Provider Not In PCP - General 06/04/17 12/23/18 Pcp, No No Address PCP - General Pediatrics 12/24/18 01/15/21 Alber Phillips MD [address] [place] [address] PCP - General Family Medicine 01/16/21 01/24/21 Pcp, No No Address PCP - General 01/25/21 02/01/21 Unknown, Attending Provider PCP - General 02/02/21 04/17/21 Pcp, No No Address PCP - General 04/18/21 05/16/21 Pcp, No [address] [place] [address] PCP - General 05/17/21 09/12/21 Jerri Colvin [address] [place] [address] PCP - General 09/13/21 Mckayla Larry MD Medical Oncologist Breast Oncology 06/02/12 Rachel Barrow MD [address] [place] [address] Surgical Oncologist Breast Surgery 01/25/21 Rachel Barrow MD [address] [place] [address] Initiating Oncologist Surgical Oncology 01/25/21 Leslee Hunter CNP [address] [place] [address] Nurse Practitioner Surgical Oncology 01/25/21 Gianna Bullard, RN Registered Nurse Breast Surgery 01/25/21 Rachel Bolanos MD Surgical Oncologist Plastic Surgery 01/31/21 Kathy Payne MD [address] [place] [address] Surgical Oncologist Breast Oncology 04/20/21 Zhane Baker [address] [place] [phone] Nurse Practitioner [facility] 04/26/21 Stefan John MD [address] [facility] [place] [address] Surgical Oncologist Plastic Surgery 08/29/21 documented as of this encounter
--- OUTSIDE RECORDS SUMMARY | 2025-07-21 12:59 | XMS_ITS | Clinical Summary ---
Author Organization [facility] Address [address] [place] [address] Care Team Providers Care Template Storage Clerk Name Role Phone Mckayla Larry MD Unavailable [phone] Rachel Barrow MD Unavailable [phone] Rachel Barrow MD Unavailable [phone] Leslee Hunter [facility] Unavailable [phone] Gianna Bullard RN Unavailable Unavaila Rachel Mistry MD Unavailable Unajosselini Kathy Breen MD Unavailable [phone] Zhane Baker Unavailable Stefan John MD Unavailable [phone] Jerri Colvin Primary Care Provider Source Comments This information has been disclosed [...] therelease of HIV test results or diagnoses. 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 Assessed) - Signed by Rachel [...] history exists Medical Devices Implanted Type Area S3B Multi Sensor Operator Device Identifier Shelf Expiration Date Model / Serial / Lot 911 Dispatcher Anastomosis [place] [employer] Titanium Od2 Mm Ring Pin Protective Cover Jaw Assembly Sterile Latex Free Disposable - [id number] Implanted:Qty: 1 on 04/10/2021 by Rachel Bolanos MD at [facility] Main Other Left: Breast [employer]IS 08/29/2025 [id number] / / [id number] Dispatcher Anastomosis [place] [employer] Polyethylene Od2.5 Mm Microvascular Ring Pin Protective Cover Jaw Assembly Sterile Latex Free Disposable - [id number] Implanted:Qty: 1 on 04/10/2021 by Rachel Bolanos MD at [facility] Main Other Left: Breast [employer]IS 07/25/2025 [id number] / / [id number] 911 Dispatcher Anastomosis [place] [employer] Polyethylene Od2.5 Mm Microvascular Ring Pin Protective Cover Jaw Assembly Sterile Latex Free Disposable - [id number] Implanted:Qty: 1 on 04/10/2021 by Rachel Barrow MD at [facility] Main Other Right: Breast [employer]IS 07/25/2025 [id number] / / [id number] Procedures Procedure Name Priority Date/Time Associated Diagnosis [...] - 33 mmol/L 03/30/2023 11:03 AM EDT [facility] Anion Gap 9 3 - 16 mmol/L 03/30/2023 11:03 AM EDT [facility] BUN 17 7 - 25 mg/dL 03/30/2023 11:03 AM EDT [facility] Creatinine 0.82 0.60 - 1.30 mg/dL 03/30/2023 11:03 AM EDT [facility] Glucose 91 70 - 100 mg/dL 03/30/2023 11:03 AM EDT [facility] Calcium 9.4 8.6 - 10.3 mg/dL 03/30/2023 11:03 AM EDT [facility] Osmolality, Calculated 285 278 - 305 mOsm/kg 03/30/2023 11:03 AM EDT [facility] EGFR 74 03/30/2023 11:03 AM EDT [facility] Comment:As of 2021, the estimated [...] EDT 03/30/2023 10:52 AM EDT us Sudhir aBnks MD LAB BLOOD ORDERABLES Final R esult [facility] [address] [place] [address], [facility] * TSH (Thyroid Stimulating Hormone) (11/23/2013 12:37 PM EDT) TSH 1.28 0.45 - 4.50 mIU/L 11/23/2013 3:08 PM EDT [facility] Serum specimen (specimen) 11/23/2013 12:37 PM EDT 11/23/2013 1:41 PM EDT Mckayla Larry MD LAB BLOOD ORDERABLES Final Res ult [facility] [address] [place] [address], [facility] from Last 3 Months or Most Recently Relevant to [place] [address] Advance Directives For more information, please contact: [phone] Documents on File Type Date Recorded Patient Instrument Mechanic Expl anation Advance Directive - scan 01/03/2012 2:24 PM * Full Code (Latest Code Status on File) Date Activated Date Inactivated Comments 04/10/2021 7:11 PM 04/14/2021 7:09 PM Care Teams Template Storage Clerk Relationship Specialty Start Date End Date Jerri Colvin [address] [place] [address] [place] [id number] PCP - General 09/13/21 Mckayla Larry MD Medical Oncologist Breast Oncology 06/02/12 Rachel Barrow MD Surgical Oncologist Breast Surgery 01/25/21 Rachel Barrow MD Initiating Oncologist Surgical Oncology 01/25/21 Leslee Hunter, MANAGER SYSTEM Nurse Practitioner Surgical Oncology 01/25/21 Gianna Bullard, RN Registered Nurse Breast Surgery 01/25/21 Rachel Bolanos MD Surgical Oncologist Plastic Surgery 01/31/21 Kathy Payne MD [address] [place] [address] Surgical Oncologist Breast Oncology 04/20/21 Zhane Baker [address] [place] [phone] Nurse Practitioner [facility] 04/26/21 Stefan John MD [address] [facility] [place] [address] Surgical Oncologist Plastic Surgery 08/29/21
--- NOTE | 2025-07-21 13:00 | XR_ITS ---
PROCEDURE INFORMATION: Exam: XR Chest Exam date and time: 07/21/2025 12:53 PM Age: 79 years old Clinical indication: Shortness of breath TECHNIQUE: Imaging protocol: Radiologic exam of the chest. Views: 2 views. COMPARISON: CR XR CHEST PORTABLE 04/28/2023 11:29 AM FINDINGS: Tubes, catheters and devices: Small surgical pradip project over the left and right breast tissue. Lungs: There is no pulmonary vascular congestion. The lungs are unremarkable. Pleural spaces: Pleural spaces are unremarkable. No pneumothorax. No pleural effusion. Heart/Mediastinum: The cardiomediastinal silhouette is unremarkable. No cardiomegaly. Bones/joints: There are costochondral calcifications. There is moderate thoracic spondylosis. Soft tissues: The soft tissues are unremarkable. IMPRESSION: No acute cardiopulmonary process.
[2025-07-21] MEDS: LIDOCAINE 2% 5ML PF VIAL 5 ML IH (13:06)
[2025-07-21 13:09] LABS: Hematocrit 40.9 % (37.0-47.0); Hemoglobin 13.9 g/dL (12.2-16.2); Immature Granulocytes % 0.3 %; Mean Corpuscular HGB Conc 34.0 g/dL (31.8-35.4); Mean Corpuscular Hemoglobin 29.8 pg (27.0-31.2); Mean Corpuscular Volume 87.6 fl (81-99); Nucleated Red Blood Cells % 0 %; Platelet Count 201 K/mm3 (142-424); Red Blood Count 4.67 M/mm3 (4.20-5.40); Red Cell Distribution Width-SD 42.6 fL; White Blood Count 6.1 K/mm3 (4.8-10.8)
[2025-07-21 13:15] LABS: Albumin Level 4.8 g/dl (3.5-5.0); Chloride 106 mmol/L (98-107); Potassium 4.5 mmoL/L (3.5-5.1); Sodium 139 mmol/L (136-145)
[2025-07-21 13:17] LABS: Blood Urea Nitrogen 21 mg/dl (7-17)
[2025-07-21 13:18] LABS: Alanine Aminotransferase 55 U/L (12-78); Albumin/Globulin Ratio 1.7 (1.1-1.8); Alkaline Phosphatase 123 U/L (38-126); Anion Gap 16.5 mEq/L (5-15); Aspartate Amino Transferase 57 U/L (14-36); Bilirubin,Total 0.9 mg/dl (0.2-1.3); Calcium 9.4 mg/dl (8.4-10.2); Carbon Dioxide 21 mmol/L (22.0-30.0); Creatinine Clearance Estimated 46 mL/min (50-200); Creatinine,Serum 0.80 mg/dl (0.52-1.04); Estimated Glomerular Filt Rate 69 ml/min (>60); GFR (African American) 84 ML/MIN (>60); Globulin 2.9 g/dL (1.3-3.2); Glucose 97 mg/dl (74-100); Total Protein,Serum 7.7 g/dl (6.3-8.2)
[2025-07-21 13:31] LABS: Troponin I < 0.01 ng/ml (0.00-0.034)
[2025-07-21 13:32] LABS: Coronavirus 19, PCR Detected (NotDetected)
--- NOTE | 2025-07-21 13:45 | PC.NURSE ---
Addendum entered by Cleo Cotter RN 07/21/25 14:01: Note time changed to 13:30. Original Note: pt doesn't feel comfortable taking the PO medication at this time after having the breathing treatment. MD notified.
[2025-07-21] MEDS: AMOXICILLIN/CLAVULANATE POTASSIUM 875/125MG TABLET 1 EACH PO (14:13)
[2025-07-21 14:18] LABS: Hepatitis C Ab Qual. W/ RFX NEGATIVE (Negative)
== END 2025-07-21 14:32 | disposition home or self-care (01) ==
PROVIDERS: Nurse Practitioner Acute Care; Emergency Provider Emergency Medicine; PCP Nurse Practitioner Family
DX: U07.1 COVID-19 (principal); R06.02 Shortness of breath; I10 Essential (primary) hypertension; R00.0 Tachycardia, unspecified; R53.81 Other malaise
CPT/HCPCS: 71046; 80053; 84484; 85025; 86803; 87389; 87636; 99283; 99285; J2003